=== PATIENT | female | born 1935 | race Caucasian/White ===

== ENCOUNTER 2019-06-10 02:41 | Inpatient (IN) | payer MEDICARE ==
[2019-06-10] MEDS ORDERED: Diltiazem 125 MG/25 ML ONE (02:58)
[2019-06-10 03:03] LABS: #Basophils 0.1 thou/uL (0.0-0.2); #Eosinphils 0.1 thou/uL (0.0-0.7); #Lymphocytes 3.8 thou/uL (1.20-3.40); #Monocytes 1.5 thou/uL (0.11-0.59); #Neutrophils 10.7 thou/uL (1.40-6.50); %Basophils 0.7 % (0.0-1.0); %Eosinophils 0.9 % (0.0-10.0); %Lymphocytes 23.5 % (21.0-51.0); %Monocytes 9.3 % (0.0-10.0); %Neutrophils 65.7 % (42.0-75.0); Hemoglobin 13.3 g/dL (12.0-16.0); Mean Corpuscular HGB CONC 34.3 g/dL (32.0-36.0); Mean Corpuscular Hemoglobin 32.5 pg (27.0-31.0); Mean Corpuscular Volume 94.6 fL (78.0-98.0); Mean Platelet Volume 7.2 fL (7.4-10.4); Platelet Count 262 thou/uL (130-400); RBC Distribution Width 11.4 % (11.5-14.5); White Blood Cell (WBC) Count 16.3 thou/uL (4.8-10.8)
[2019-06-10 03:24] LABS: ALT (SGPT) 14 U/L (8-55); AST (SGOT) 17 U/L (5-34); Alkaline Phosphatase 82 U/L (40-110); Anion Gap 14 mmol/L (10-20); BUN (Urea Nitrogen) 25 mg/dL (9.8-20.1); Bilirubin, Total 0.4 mg/dL (0.2-1.2); CK (CPK) 104 U/L (29-168); Calc. Creatinine Clearance 0 mL/min (70-130); Calcium 9.9 mg/dL (7.8-10.44); Carbon Dioxide 24 mmol/L (23-31); Chloride 100 mmol/L (98-107); Estimated GFR-MDRD 45; Globulin 3.7 g/dL (2.4-3.5); Glucose 138 mg/dL (83-110); Potassium 3.2 mmol/L (3.5-5.1); Protein, Total 7.7 g/dL (6.0-8.3); Sodium 135 mmol/L (136-145)
[2019-06-10 03:48] LABS: CKMB 4.4 ng/mL (0-6.6)
[2019-06-10 05:08] VITALS: BMI 30.7
[2019-06-10] MEDS ORDERED: Ondansetron PF 4 MG/2 ML Vial IVP PRN (06:13)
[2019-06-10] MEDS ORDERED: Acetaminophen 500 MG TAB PO PRN (06:13)
[2019-06-10] MEDS ORDERED: hydrALAZINE 20 MG/ML VIAL SLOW IVP PRN (06:13)
[2019-06-10] MEDS ORDERED: Diltiazem 125 MG in Sodium Chloride 0.9% 100 ML IVPB SCH (06:15)
[2019-06-10 07:28] LABS: Troponin I 0.439 ng/mL (< 0.028)
--- NOTE | 2019-06-10 08:02 | RAD ---
PORTABLE CHEST: HISTORY: Heart palpitations. FINDINGS: Heart size is borderline. Some atherosclerotic change in the aortic and mild chronic-appearing lung change. IMPRESSION: Borderline cardiomegaly with chronic-appearing lung change. POS: JAVIH
[2019-06-10] MEDS: Losartan/Hydrochlorothiazide 100 mg/25 mg Tablet PO SCH ×3 (08:25→17:47)
[2019-06-10] MEDS: Apixaban 5 MG TAB PO SCH ×2 (08:25→20:22)
[2019-06-10] MEDS ORDERED: Metoprolol Tartrate 100 MG TAB PO SCH (09:00)
[2019-06-10] MEDS ORDERED: Famotidine 20 MG TAB PO SCH (09:00)
[2019-06-10] MEDS ORDERED: Magnesium 2 GM/50 ML 2 GM in Premix Bag 1 BAG IVPB SCH (12:00)
[2019-06-10] MEDS ORDERED: Potassium Chloride 20 MEQ TAB PO SCH ×2 (12:00→18:00)
[2019-06-10 12:02] LABS: Critical Call Chem Troponin I RESULT DECREASING; Troponin I 0.338 ng/mL (< 0.028)
--- NOTE | 2019-06-10 12:14 | PDOC.HOSPP ---
- Subjective Encounter Date: 06/10/19 Encounter Time: 09:35 Subjective: no sob or chest pain daughter at bedside was taking eliquis x 2 days, plan was to meet ?Dr. Noel next week - Objective Vital Signs & Weight: Vital Signs (12 hours) Temp Pulse Resp BP Pulse Ox 06/10/19 10:54 99.0 F 68 22 H 119/61 92 L 06/10/19 07:14 98.7 F 79 15 134/58 L 92 L 06/10/19 06:25 95 06/10/19 05:07 97 F L 89 18 173/80 H 95 Weight Weight 173 lb 4.533 oz Result Diagrams: 06/10/19 02:56 06/10/19 02:56 Hospitalist ROS - Medication Medications: Active Medications Generic Name Dose Route Start Last Admin Trade Name Freq PRN Reason Stop Dose Admin Apixaban 5 mg 06/10/19 09:00 06/10/19 08:25 Eliquis PO 5 mg BID EPI Administration Famotidine 20 mg 06/10/19 09:00 06/10/19 08:25 Pepcid PO 20 mg BID EPI Administration HCTZ/Losartan Potassium 1 tab 06/10/19 07:30 06/10/19 08:25 Hyzaar 100/25 PO 1 tab AC EPI Administration - Exam General Appearance: NAD, awake alert Eye: PERRL, anicteric sclera ENT: no oropharyngeal lesions, moist mucosa Neck: supple, no JVD Heart: RRR, no gallops Respiratory: no wheezes, no rales Gastrointestinal: soft, non-tender, normal bowel sounds Extremities: no cyanosis, no edema Neurological: cranial nerve grossly intact, no focal deficits Psychiatric: normal affect, A&O x 3 Hosp A/P (1) Afib Code(s): I48.91 - UNSPECIFIED ATRIAL FIBRILLATION Status: Acute Qualifiers: Atrial fibrillation type: paroxysmal Qualified Code(s): I48.0 - Paroxysmal atrial fibrillation (2) HTN (hypertension) Code(s): I10 - ESSENTIAL (PRIMARY) HYPERTENSION Status: Chronic Qualifiers: Hypertension type: essential hypertension Qualified Code(s): I10 - Essential (primary) hypertension (3) Hypokalemia Code(s): E87.6 - HYPOKALEMIA Status: Acute (4) SRIDHAR (acute kidney injury) Code(s): N17.9 - ACUTE KIDNEY FAILURE, UNSPECIFIED Status: Resolved - Plan heart rate is down to 40's, dc lucian aquino d/w earlier for consultation echo is on eliquis, hyzaar and lopressor (will split her long acting to bid) will dc clonidine at HS hemostable
--- NOTE | 2019-06-10 12:47 | HP ---
PRIMARY CARE PROVIDER: Dr. Diego Harris at the [facility]. CHIEF COMPLAINT: Palpitations and shortness of breath. HISTORY OF PRESENT ILLNESS: This is an 83-year-old female, who presents to [facility] Emergency Department complaining of persistent palpitations, shortness of breath, and chest pain. The patient initially noted the symptoms in the last 4 to 5 days, prompting her to seek medical attention from her primary care provider. The patient underwent EKG and chest radiographs and was told to report to the hospital for further evaluation due to atrial arrhythmia. The patient states she had a similar event in 2005, undergoing a plethora of testing; however, was released without further intervention. The patient states she has been compliant with her chronic medication regimen, taking several blood pressure medications. The patient states she was also recently placed up on Eliquis at the direction of her primary care provider due to the atrial arrhythmia. The patient states her last echocardiogram was in 2005, when she underwent cardiac evaluation. The patient denies any personal history of coronary artery disease, but does admit that she takes a daily low-dose aspirin. The patient states she was scheduled to see a charge machine operator in the next week due to recurrent atrial arrhythmias. The patient does report a history of reflux, taking [id number] antacids for some relief of her symptoms. The patient states this has been intermittent over months' time, but denies any change to her appetite, bowel habits, hematemesis, or melena. In the emergency room, the patient underwent general evaluation with telemetry monitoring showing atrial flutter with rapid ventricular response with initial heart rates in the 160s. The patient received diltiazem IV bolus in addition to an infusion. The patient's overall rate had improved with initiation of diltiazem and was referred to the hospitalist service for further evaluation. PAST MEDICAL HISTORY: 1. Atrial arrhythmias. 2. Chronic anticoagulation. 3. Hypertension. PAST SURGICAL HISTORY: 1. Status post anal fissure repair. 2. Status post cholecystectomy. CURRENT MEDICATIONS: 1. Eliquis 5 mg p.o. b.i.d. 2. Clonidine 0.2 mg p.o. at bedtime. 3. Losartan/hydrochlorothiazide 100/25 mg 1 tablet p.o. daily. 4. Metoprolol tartrate 100 mg p.o. daily. ALLERGIES: ANABOLIC STEROIDS, ERYTHROMYCIN, AND PREDNISONE. FAMILY HISTORY: Positive for hypertension. SOCIAL HISTORY: The patient resides in the [facility] with her . Primary care provider for . Functional of all activities of daily living. No current alcohol, tobacco, or illicit drug use. Accompanied by her daughter in the hospital. REVIEW OF SYSTEMS: CONSTITUTIONAL: Negative for weight loss or gain, ability to conduct usual activities. SKIN: Negative for rash, itching. EYES: Negative for double vision, pain. ENT/MOUTH: Negative for nose bleeding, neck stiffness, pain, tenderness. CARDIOVASCULAR: Negative for palpitations, dyspnea on exertion, orthopnea. RESPIRATORY: Negative for shortness of breath, wheezing, cough, hemoptysis, fever or night sweats. GASTROINTESTINAL: Negative for poor appetite, abdominal pain, heartburn, nausea, vomiting, constipation, or diarrhea. GENITOURINARY: Negative for urgency, frequency, dysuria, nocturia. MUSCULOSKELETAL: Negative for pain, swelling. NEUROLOGIC/PSYCHIATRIC: Negative for anxiety, depression. ALLERGY/IMMUNOLOGIC: Negative for skin rash, bleeding tendency. Otherwise, negative except as stated per HPI. PHYSICAL EXAMINATION: VITAL SIGNS: On admission, blood pressure 173/101, pulse 168, respiratory rate 24, temperature 98.2 degrees Fahrenheit, and O2 saturation 97% on room air. GENERAL APPEARANCE: This is an 83-year-old female, alert and oriented x3, pleasant, smiling, in no acute distress. HEENT: Pupils are equal, round, reactive to light and accommodation. Extraocular muscles are intact. No scleral icterus. No conjunctival injection. Nares are patent. OP is clear. Teeth in good repair. NECK: Supple. No cervical adenopathy. No thyromegaly. No carotid bruits. No JVD appreciated. Cervical spine with full active and passive range of motion. No meningeal signs noted. CHEST: Lungs are clear to auscultation bilaterally. CARDIOVASCULAR: S1 and S2 with irregular rate and rhythm. No murmur, rub, or gallop appreciated. ABDOMEN: Obese, soft, nontender, and nondistended. Bowel sounds are positive in all 4 quadrants. There is no hepatosplenomegaly. No abdominal bruits. No rebound or guarding appreciated. EXTREMITIES: Warm and dry with fair turgor. No clubbing, cyanosis, or asymmetric edema appreciated. Pulses palpable distally at the dorsalis pedis, posterior tibial, and popliteal arteries bilaterally. Capillary refill less than 2 seconds. NEUROLOGIC: Cranial nerves 2 through 12 are grossly intact. No focal or lateralizing signs appreciated. PERTINENT LABORATORY AND X-RAY FINDINGS: Sodium 135, potassium 3.2, chloride 100, CO2 of 24, BUN 25, creatinine 1.15, estimated GFR 45, glucose 138, and calcium 9.9. LFTs within normal limits. Troponin I 0.504. CBC showed a white blood cell count of 16.3, hemoglobin 13, hematocrit 39, and platelet count 262 with normal differential. Portable chest x-ray dated 06/10/2019 by my interpretation shows no acute cardiopulmonary process. EKG dated 06/10/2019 by my interpretation shows atrial flutter with variable AV block. Heart rates in the 110s. Attenuated R-wave is noted in the precordial leads. Left axis deviation. ASSESSMENT AND PLAN: 1. Atrial flutter with rapid ventricular response. The patient will be admitted to the telemetry unit. We will continue rate control strategy with diltiazem infusion at 10 mg/hour. Continue anticoagulation with Eliquis 5 mg b.i.d. We will consult Cardiology Service for evaluation and strategies regarding return to sinus mechanism. 2. Non-ST elevation myocardial infarction, type 2. Suspect demand ischemia in the context of #1. Continue aspirin 81 mg daily. Check fasting lipid profile. Consult Cardiology Service. 3. Hyponatremia. Suspect iatrogenic secondarily to hydrochlorothiazide therapy. Asymptomatic currently. Continue to monitor trend. 4. Hypokalemia. Repeat potassium level and monitor potassium trend. 5. Acute kidney injury. Avoid nephrotoxic agents and limit contrast exposure. Serial creatinine monitoring. 6. Chronic anticoagulation. Continue Eliquis 5 mg b.i.d. 7. Hypertension. Labile. Hydralazine as needed for systolic greater than or equal to 170. Resume home blood pressure regimen and monitor clinical response. 8. Prophylaxis. SCDs while in bed. Pepcid 20 mg p.o. b.i.d. CODE STATUS: Full. Surrogate medical decision maker is the patient's daughter. Job ID: [id number]
[2019-06-10] MEDS ORDERED: Amiodarone 200 MG TAB PO SCH (15:00)
--- NOTE | 2019-06-10 18:16 | CON ---
DATE OF CONSULTATION: 06/10/2019 REASON FOR CONSULTATION: Atrial fibrillation with a rapid rate and increased troponin level. HISTORY OF PRESENT ILLNESS: Ms. Sanz is a very pleasant 83-year-old woman. She said in the last week she has been having a sensation of rapid heart rates. She saw Dr. Harris earlier this week on Friday and he started her on apixaban. The patient has had episodes of rapid heart rates at night and also the uncomfortableness feeling in her chest and some tightness in her chest when the rate is fast. She came here. She had a rapid heart rate. She was given diltiazem. She was found to have slight increased troponin level. She has been hospitalized for diagnosis and treatment. The patient states she has had some episodes of rapid heart rates in the past over the years off and on, but it has never been diagnosed before. Otherwise, a couple of weeks ago, she was doing fine and active. No complaints. MEDICATIONS: 1. Clonidine 0.2 mg at bedtime. 2. Metoprolol 100 mg long-acting once a day (metoprolol tartrate is listed here, but I am not certain, I think the other says succinate). 3. Losartan/hydrochlorothiazide. 4. Apixaban 5 mg twice a day. ALLERGIES: ANDROGENIC ANABOLIC STEROID, ERYTHROMYCIN, AND PREDNISONE. REVIEW OF SYSTEMS: CONSTITUTIONAL: No significant weight gain or loss. VISION: No changes. HEARING: No changes. PULMONARY: No cough or wheezing. GASTROINTESTINAL: No nausea, vomiting, or diarrhea. SKIN: No rashes. NEUROLOGIC: No unilateral weakness or numbness. PSYCHIATRIC: No unusual depression or anxiety. FAMILY HISTORY: Negative for heart disease at young age. PHYSICAL EXAMINATION: GENERAL: This is a pleasant elderly woman in no distress. VITAL SIGNS: Blood pressure 119/61, pulse is 50 to 60, it is irregular. HEENT: Eyes: Sclerae are nonicteric. Mouth: Mucous membranes are moist. NECK: Supple. No lymphadenopathy. LUNGS: Clear. No wheezing, rales, or rhonchi. CARDIAC: Irregularly irregular. No murmur, rub, or gallop. ABDOMEN: Soft and nontender. EXTREMITIES: Warm and dry. No clubbing or cyanosis. There is no significant edema. Good peripheral pulses. PERTINENT LABORATORY DATA: Hemoglobin is 13.3. Troponin level of 0.504, down to 0.439. Potassium 3.2. EKG did reveal atrial fibrillation with a rapid ventricular response. Now, the rates are controlled. The heart rates are 60 with some pauses. There is an EKG with heart rate of 110 here last night. ASSESSMENT: 1. Atrial fibrillation with rapid ventricular response. 2. Type 2 myocardial infarction and demand ischemia with probable underlying coronary artery disease. 3. History of hypertension. In all likelihood, the patient has underlying coronary artery disease. She did have a non-ST elevation myocardial infarction type 2 associated with the tachycardia. She is currently on apixaban. PLAN: 1. We will stop diltiazem. The heart rates are now on the low side. 2. Continue apixaban. 3. Echocardiogram pending. 4. If she maintains the atrial fibrillation tomorrow, I would recommend transesophageal echo and cardioversion. The risks including stroke and need for pacemaker insertion were discussed in case the heart rate comes out too slow. Job ID: [id number]
[2019-06-10] MEDS: Amiodarone 200 MG TAB PO SCH (20:22)
[2019-06-10] MEDS ORDERED: cloNIDine 0.2 MG TAB PO SCH (21:00)
[2019-06-11] MEDS: Amiodarone 200 MG TAB PO SCH ×4 (01:13→20:10)
[2019-06-11] MEDS ORDERED: Nitroglycerin 0.4 MG TAB (25 Tab Bottle) ONE (04:22)
[2019-06-11] MEDS: Nitroglycerin 0.4 MG TAB (25 Tab Bottle) PO PRN ×3 (04:23→08:01)
[2019-06-11] MEDS ORDERED: Lorazepam 0.5 MG TAB PO SCH (04:45)
[2019-06-11 06:02] LABS: Anion Gap 15 mmol/L (10-20); BUN (Urea Nitrogen) 22 mg/dL (9.8-20.1); Calc. Creatinine Clearance 54 mL/min (70-130); Calcium 9.7 mg/dL (7.8-10.44); Carbon Dioxide 23 mmol/L (23-31); Chloride 100 mmol/L (98-107); Estimated GFR-MDRD 52; Glucose 161 mg/dL (83-110); Magnesium 1.9 mg/dL (1.6-2.6); Potassium 3.3 mmol/L (3.5-5.1); Sodium 135 mmol/L (136-145)
[2019-06-11 06:06] LABS: Critical Call Chem Troponin I RESULT DECREASING
[2019-06-11 06:10] LABS: Hemoglobin 13.4 g/dL (12.0-16.0); Mean Corpuscular HGB CONC 34.1 g/dL (32.0-36.0); Mean Corpuscular Hemoglobin 32.2 pg (27.0-31.0); Mean Corpuscular Volume 94.5 fL (78.0-98.0); Mean Platelet Volume 7.5 fL (7.4-10.4); Platelet Count 279 thou/uL (130-400); RBC Distribution Width 11.5 % (11.5-14.5); Red Blood Cell (RBC) Count 4.15 mill/uL (4.20-5.40); White Blood Cell (WBC) Count 14.8 thou/uL (4.8-10.8)
[2019-06-11 06:11] LABS: Band 6 % (5-11); Eosinophils 1 % (0-10); Lymphocytes 29 % (21-51); MDiff Complete? YES; Monocytes 7 % (0-10); Neutrophil 57 % (42-75)
[2019-06-11] MEDS: Losartan/Hydrochlorothiazide 100 mg/25 mg Tablet PO SCH ×3 (08:01→17:55)
[2019-06-11] MEDS: Famotidine 20 MG TAB PO SCH (08:02)
[2019-06-11] MEDS ORDERED: Diltiazem 125 MG in Sodium Chloride 0.9% 100 ML IVPB SCH ×2 (08:30→09:00)
[2019-06-11] MEDS ORDERED: Metoprolol Tartrate 5 MG/5 ML VIAL IVP PRN (08:58)
[2019-06-11] MEDS ORDERED: Lidocaine 1% PF 5 ML VIAL ONE (10:09)
[2019-06-11] MEDS ORDERED: PROPOFOL 200 MG/20 ML VIAL ONE ×2 (10:09→10:10)
[2019-06-11] MEDS ORDERED: Lidocaine 1% (PF) 30 ML VIAL ONE (10:45)
[2019-06-11] MEDS ORDERED: Propofol 500 MG/50 ML VIAL ONE (11:12)
--- NOTE | 2019-06-11 11:50 | PDOC.HOSPP ---
- Subjective Encounter Date: 06/11/19 Encounter Time: 09:20 Subjective: had palp at night, none now, feels better no sob daughter at bedside - Objective Vital Signs & Weight: Vital Signs (12 hours) Temp Pulse Resp BP Pulse Ox 06/11/19 07:42 97.8 F 160 H 16 121/80 98 06/11/19 03:56 98.2 F 143 H 19 139/91 H 94 L Weight Weight 173 lb 4.533 oz I&O: 06/10/19 06/11/19 06/12/19 06:59 06:59 06:59 Intake Total 1380 Balance 1380 Result Diagrams: 06/11/19 04:59 06/11/19 04:59 Hospitalist ROS - Medication Medications: Active Medications Generic Name Dose Route Start Last Admin Trade Name Freq PRN Reason Stop Dose Admin Famotidine 20 mg 06/11/19 09:00 06/11/19 08:02 Pepcid PO 20 mg DAILY EPI Administration HCTZ/Losartan Potassium 1 tab 06/10/19 07:30 06/11/19 08:01 Hyzaar 100/25 PO 1 tab AC EPI Administration Diltiazem HCl 125 mg/ Sodium 125 mls @ 10 mls/hr 06/11/19 08:30 06/11/19 09: 10 Chloride IVPB 125 mls INF EPI Administration Protocol 10 MG/HR Nitroglycerin 0.4 mg 06/11/19 04:20 06/11/19 08:01 Nitrostat PO 1 tab Q5MIN PRN Administration Chest Pain Sodium Chloride 10 ml 06/11/19 09:00 06/11/19 11:11 Flush - Normal Saline IVF 10 ml Q12HR EPI Administration - Exam General Appearance: NAD, awake alert Eye: PERRL, anicteric sclera ENT: no oropharyngeal lesions, moist mucosa Neck: supple, no JVD Heart: no murmur, irregular Respiratory: no wheezes, no ronchi Gastrointestinal: soft, non-tender, normal bowel sounds Extremities: no cyanosis, no edema Neurological: cranial nerve grossly intact, no focal deficits Psychiatric: normal affect, A&O x 3 Hosp A/P (1) Afib Code(s): I48.91 - UNSPECIFIED ATRIAL FIBRILLATION Status: Acute Qualifiers: Atrial fibrillation type: paroxysmal Qualified Code(s): I48.0 - Paroxysmal atrial fibrillation (2) HTN (hypertension) Code(s): I10 - ESSENTIAL (PRIMARY) HYPERTENSION Status: Chronic Qualifiers: Hypertension type: essential hypertension Qualified Code(s): I10 - Essential (primary) hypertension (3) Hypokalemia Code(s): E87.6 - HYPOKALEMIA Status: Resolved (4) SRIDHAR (acute kidney injury) Code(s): N17.9 - ACUTE KIDNEY FAILURE, UNSPECIFIED Status: Resolved - Plan overnight had a.flutter/fib, is on amiodarone tid oral likely will either have cardioversion or amee with ablation d/w . will see her. echo shows normal ef, has mod MR and TR is on eliquis, hyzaar. Off lopressor hemostable
[2019-06-11] MEDS ORDERED: Isoproterenol 0.2 MG/1 ML AMP ONE (11:55)
[2019-06-11] MEDS ORDERED: Heparin 10,000 UNITS/1 ML VIAL ONE (11:55)
[2019-06-11] MEDS ORDERED: DOPamine 400 MG/D5W 250 ML 250 ML ONE (12:05)
[2019-06-11] MEDS ORDERED: Acetaminophen/Codeine 30-300mg Tablet PO PRN ×2 (13:30)
--- NOTE | 2019-06-11 15:27 | OP ---
DATE OF PROCEDURE: 06/11/2019 PROCEDURE PERFORMED: Electrophysiology study and radiofrequency ablation. REASON FOR PROCEDURE: Ms. Sanz presenting with sustained typical appearing atrial flutter. SUMI prior to the procedure demonstrates no intracardiac clot, but [id number] biatrial enlargement. DESCRIPTION OF PROCEDURE: The patient received propofol by anesthesia specialist. After adequate level of sedation achieved, the right femoral vein was prepped and draped and anesthetized using subcutaneous lidocaine. Under ultrasound guidance, the right femoral vein accessed x2 with a multipurpose needle and two 8-[place] short sheath was introduced, through which a decapolar catheter was advanced to the right atrium, right ventricle, His bundle, and CS position. Pacing mapping and recording was performed at each location, including pacing of the left atrium through the CS. Also through the right femoral venous access, a ThermoCool SFST catheter was advanced to the right atrium, which was used to obtain 3D map of the right atrium as well as ablation of the cavotricuspid isthmus was performed later. At baseline, following findings were noted. Baseline rhythm was atrial flutter with a QRS duration of 99. The atrial flutter cycle length was 213 milliseconds cycle length. With catheter manipulation, the atrial flutter terminated. Subsequent rhythm was sinus rhythm. Again, the QRS was 99 milliseconds, QT 234 milliseconds, AH 131, HV 50 milliseconds. Sinus node recovery time was assessed. It is 1507 with corrected sinus node recovery time about 507 seen. AV Wenckebach cycle length was 380 milliseconds. Retrograde Wenckebach cycle was 450 milliseconds. Concentric retrograde VA conduction was seen. The AV penny ERP was 600/280 milliseconds. No dual AV node physiology was present. Burst atrial pacing was performed and we were able to reinduce any atrial flutter with a different cycle lengths and different morphologies. The further flutters appeared to be a left atrial, another flutter, possibly right atrial morphology. Cavotricuspid isthmus ablation was performed in sinus rhythm with coronary sinus pacing. Able to prolong the cavotricuspid isthmus to 160 milliseconds with the ablation, transisthmus block was demonstrated by longest transisthmus time adjacent to the ablation line. A total of 2 ablations delivered at 3 minutes and 55 seconds at 40 gunter. Following that, burst atrial pacing was again attempted and we were able to reduce different morphology of left atrial flutters. One of them was cycle length 210 milliseconds and this flutter was easily paced terminable. Post pacing interval though was suggesting again left atrial origin. At the end of the case, dopamine was administered and any reconnection was re-ablated. The cardiac silhouette did not change significantly during the ablation. Catheter was removed. The patient tolerated the procedure well. Basket closure was done. CONCLUSION: 1. Baseline atrial flutter, terminating with catheter manipulation. 2. Cavotricuspid isthmus ablation, prolonging transisthmus time. 3. Multi-circuit left atrial flutters are seen, most prominent of them at 210 am milliseconds, which was easily pace terminated. 4. Abnormal sinus node recovery time, suggestive of sinus node abnormality, possibly due to amiodarone and diltiazem use recently. 5. No evidence of accessory pathway or dual atrioventricular penny physiology present. PLAN: 1. Continue oral anticoagulation. Monitor for recurrent arrhythmias, likely reasonable to continue amiodarone at least intermediate term to suppress additional left atrial arrhythmias. 2. After clinical stabilization, left atrial ablation is a potential future option. Job ID: [id number]
--- NOTE | 2019-06-11 16:02 | PRG ---
DATE OF SERVICE: 06/11/2019 SUBJECTIVE: Ms. Sanz developed rapid atrial flutter early this morning. She did not respond well to medications as is frequently the case. She ultimately went for ablation. She is feeling well now. No chest pain or pressure now. The patient did have chest pain last night with tachycardia. OBJECTIVE: VITAL SIGNS: Her blood pressure was 170/90, pulse 77 and regular. LUNGS: Clear. CARDIAC: Normal S1, normal S2. ABDOMEN: Soft, nontender. EXTREMITIES: No edema. ASSESSMENT: The patient appears to have had three types of arrhythmias. She has atrial fibrillation which she has a risk of recurrence. Next, what looks like right-sided atrial flutter. She had an ablation of the isthmus on the right side. Next also left atrial tachycardia and a left atrial flutter. PLAN: 1. To be treated with amiodarone, metoprolol, apixaban. 2. She will be able to go home Friday if doing well, but would like to keep her in the hospital to load her with medicines first. When she went into rapid tachycardia, she did not tolerate it well and even had a small non STEMI related to tachycardia. She probably has underlying coronary disease. Job ID: [id number]
[2019-06-11] MEDS: Apixaban 5 MG TAB PO SCH (20:10)
--- NOTE | 2019-06-11 20:53 | ECHO ---
DATE: 06/11/19 REFERRING PHYSICIAN: Dr. Roldan REASON FOR PROCEDURE: The patient is an 83-year-old female with history of hypertension who I presenting with chest pain an d borderline troponin rise with rapid rates, newly found atrial flutter is noted on the present EKG. Rapid rates are controlled with Diltiazem. She has been started on Eliquis a couple of days ago, but she is here for a SUMI to rule out intracardiac clot prior to a planned ablation procedure. PROCEDURE: The patient received propofol by Anesthesia specialist. After adequate level of sedation achieved, a standard transesophageal echocardiogram probe was passed into the esophagus without diff iculty. Patient tolerated the procedure well, no complications noted. RESULTS: Left atrium is moderate to severely enlarged about 5 cm in horizontal diameter. The left atrial appe ndage was well visualized contains no formed clots. The left atrial appendage velocities are reduced. Four out of four pulmonary veins were seen. The mitral valve has mild to moderate regurgitation jus t central. The interatrial septum and interventricular septum is free of defect. Left ventricular sys tolic function appears to be preserved. Mild LVH is noted. Right sided chambers with mild tricuspid r egurgitation. The aortic valve is nonregurgitant or stenotic. The pulmonary valve is borderline visua lized and appears to be normal. Pericardial space with small to moderate mostly focal effusion by the right ventricle which does not appear to be hemodynamically significant. No chamber clots are noted. The visualized portion of ascending and descending aorta without aneurysm, dissection or significant atheroma. CONCLUSION: 1. No intracardiac clots. 2. Moderate to severe biatrial enlargement. 3. Preserved left ventricular systolic function. 4. Mild to moderate mitral and tricuspid regurgitation. 5. Mild to moderate mostly focal right ventricular/left atrial pericardial effusion without hemodyna mically significant appearance. PLAN: Proceed with the ablation procedure.
[2019-06-12] MEDS: traMADol HCl 50 MG TAB PO PRN (01:27)
[2019-06-12 05:52] LABS: Hemoglobin 13.1 g/dL (12.0-16.0); Platelet Count 259 thou/uL (130-400)
[2019-06-12 06:20] LABS: Anion Gap 13 mmol/L (10-20); BUN (Urea Nitrogen) 23 mg/dL (9.8-20.1); Calc. Creatinine Clearance 51 mL/min (70-130); Calcium 9.6 mg/dL (7.8-10.44); Carbon Dioxide 27 mmol/L (23-31); Chloride 99 mmol/L (98-107); Estimated GFR-MDRD 49; Glucose 147 mg/dL (83-110); Sodium 136 mmol/L (136-145)
[2019-06-12 06:21] LABS: Potassium 2.9 mmol/L (3.5-5.1)
[2019-06-12] MEDS: Amiodarone 200 MG TAB PO SCH ×3 (07:10→20:37)
[2019-06-12] MEDS: Apixaban 5 MG TAB PO SCH ×2 (07:10→20:37)
[2019-06-12] MEDS: Famotidine 20 MG TAB PO SCH (07:10)
[2019-06-12] MEDS: Losartan/Hydrochlorothiazide 100 mg/25 mg Tablet PO SCH ×3 (08:08→15:33)
[2019-06-12] MEDS: Potassium Chloride 20 MEQ in Premix Bag 1 BAG IVPB SCH ×2 (08:08→12:48)
--- NOTE | 2019-06-12 09:56 | PDOC.HOSPP ---
- Subjective Encounter Date: 06/12/19 Subjective: Pt seen c/o burning IV line site due to potassium , also c/o chest pain says has soreness due to movement and breathing - Objective Vital Signs & Weight: Vital Signs (12 hours) Temp Pulse Resp BP Pulse Ox 06/12/19 07:51 95 06/12/19 07:07 134 H 16 158/88 H 94 L 06/12/19 03:53 98.0 F 94 16 145/67 H 92 L 06/12/19 03:22 96 Weight Weight 173 lb 4.533 oz I&O: 06/11/19 06/12/19 06/13/19 06:59 06:59 06:59 Intake Total 1380 960 Balance 1380 960 Result Diagrams: 06/12/19 05:18 06/12/19 05:18 Hospitalist ROS - Review of Systems Constitutional: denies: fever Eyes: denies: pain ENT: denies: ear pain Respiratory: denies: cough Cardiovascular: reports: chest pain Gastrointestinal: denies: nausea Musculoskeletal: denies: neck pain Neurological: denies: weakness - Medication Medications: Active Medications Generic Name Dose Route Start Last Admin Trade Name Freq PRN Reason Stop Dose Admin Amiodarone HCl 400 mg 06/11/19 15:00 06/12/19 07:10 Cordarone PO 400 mg TID EPI Administration Apixaban 5 mg 06/11/19 21:00 06/12/19 07:10 Eliquis PO 5 mg BID EPI Administration Famotidine 20 mg 06/11/19 09:00 06/12/19 07:10 Pepcid PO 20 mg DAILY EPI Administration HCTZ/Losartan Potassium 1 tab 06/10/19 07:30 06/12/19 08:08 Hyzaar 100/25 PO 1 tab AC EPI Administration Potassium Chloride 20 meq/ 100 mls @ 50 mls/hr 06/12/19 08:00 06/12/19 08:08 Device IVPB 06/12/19 11:59 100 mls Q2H EPI Administration Metoprolol Succinate 100 mg 06/12/19 09:00 06/12/19 07:09 Toprol Xl PO 100 mg DAILY EPI Administration Nitroglycerin 0.4 mg 06/11/19 04:20 06/11/19 08:01 Nitrostat PO 1 tab Q5MIN PRN Administration Chest Pain Sodium Chloride 10 ml 06/11/19 09:00 06/12/19 08:13 Flush - Normal Saline IVF 10 ml Q12HR EPI Administration Tramadol HCl 50 mg 06/10/19 16:15 06/12/19 01:27 Ultram PO 50 mg Q6H PRN Administration Pain - Exam General Appearance: awake alert Eye: PERRL ENT: normocephalic atraumatic Neck: supple Heart: irregular Gastrointestinal: soft Skin: normal turgor Neurological: cranial nerve grossly intact Musculoskeletal: normal tone Psychiatric: normal affect Hosp A/P - Plan Afib/flutter with RVR s/p ablation Continue amiodarone eliquis Positive troponin most likley demand supply mismatch deu to Afib RVR HTN (hypertension) Contoinue to monitor Hypokalemia Contoinue to replacement Leucocytosis Most likely reactive dvt/gi prophylaxis Plan Discussed with pt , daughter and nursing staff
[2019-06-12] MEDS: Diltiazem 125 MG in Sodium Chloride 0.9% 100 ML IVPB SCH (10:31)
--- NOTE | 2019-06-12 20:11 | PDOC.CPN ---
- Subjective Date: 06/12/19 Time: 20:09 Interval history: Doing well No new issues. - Review of Systems General: denies: fever/chills, weight/appetite/sleep changes, night sweats, fatigue Respiratory: denies: cough, congestion, shortness of breath, exercise intolerance Cardiovascular: denies: chest pain, palpitation, edema, paroxysmal nocturnal dyspnea, orthopnea Gastrointestinal: denies: nausea, vomiting, diarrhea, constipation, abd pain, GI bleeding Musculoskeletal: denies: pain, tenderness, stiffness, swelling, arthritis/ arthralgias Neurological: denies: numbness, syncope, seizure, weakness - Objective Allergies/Adverse Reactions: Allergies Allergy/AdvReac Type Severity Reaction Status Date / Time Androgenic Anabolic Steroid Allergy Verified 06/10/19 05:10 erythromycin base Allergy Verified 06/10/19 05:10 prednisone Allergy Verified 06/10/19 05:10 Visit Medications: Current Medications Acetaminophen (Tylenol) 1,000 mg PO Q6H PRN PRN Reason: Mild Pain (1-3) Acetaminophen/Codeine Phosphate (Tylenol #3) 1 tab PO Q4H PRN PRN Reason: Mild Pain (1-3) Acetaminophen/Codeine Phosphate (Tylenol #3) 2 tab PO Q4H PRN PRN Reason: Moderate Pain (4-6) Amiodarone HCl (Cordarone) 400 mg PO TID [facility] Last Admin: 06/12/19 15:20 Dose: 400 mg Apixaban (Eliquis) 5 mg PO BID [facility] Last Admin: 06/12/19 07:10 Dose: 5 mg Famotidine (Pepcid) 20 mg PO DAILY [facility] Last Admin: 06/12/19 07:10 Dose: 20 mg HCTZ/Losartan Potassium (Hyzaar 100/25) 1 tab PO DAILY [facility] Hydralazine HCl (Apresoline) 10 mg SLOW IVP Q4H PRN PRN Reason: SBP > 180 and HR < 70 Diltiazem HCl 125 mg/ Sodium (Chloride) 125 mls @ 5 mls/hr IVPB INF [facility] Last Admin: 06/12/19 10:31 Dose: 125 mls Metoprolol Succinate (Toprol Xl) 100 mg PO DAILY [facility] Last Admin: 06/12/19 07:09 Dose: 100 mg Miscellaneous Medication (Pharmacy To Dose) 1 each PO PRN PRN PRN Reason: RENALLY ADJUST Nitroglycerin (Nitrostat) 0.4 mg PO Q5MIN PRN PRN Reason: Chest Pain Last Admin: 06/11/19 08:01 Dose: 1 tab Ondansetron HCl (Zofran Odt) 4 mg PO Q6H PRN PRN Reason: Nausea/Vomiting Ondansetron HCl (Zofran) 4 mg IVP Q6H PRN PRN Reason: Nausea/Vomiting Sodium Chloride (Flush - Normal Saline) 10 ml IVF Q12HR EPI Last Admin: 06/12/19 08:13 Dose: 10 ml Sodium Chloride (Flush - Normal Saline) 10 ml IVF PRN PRN PRN Reason: Saline Flush Tramadol HCl (Ultram) 50 mg PO Q6H PRN PRN Reason: Pain Last Admin: 06/12/19 01:27 Dose: 50 mg Vital Signs & Weight: Vital Signs Pulse Resp BP Pulse Ox 06/12/19 15:18 80 16 126/66 94 L 06/12/19 12:00 140 H 16 116/73 93 L Weight 173 lb 4.533 oz - Physical Exam General: alert & oriented x3, no apparent distress HEENT: mucus membranes moist, normocephaly Neck: supple neck, midline trachea Cardiac: regular rate and rhythm, no murmur, regular rate Lungs: clear to auscultation, no wheeze, rales, rhonchi Neuro: grossly intact, coordination normal Abdomen: active bowel sounds, soft, non-tender Skin: clear Musculoskeletal: normal range of motion, no pain - Labs Result Diagrams: 06/12/19 05:18 06/12/19 05:18 Troponin/CKMB CK-MB (CK-2) 2.0 ng/mL (0-6.6) 06/11/19 04:59 Troponin I 0.309 ng/mL (< 0.028) H* 06/11/19 04:59 - Assessment/Plan Assessment/Plan: 1. Paroxysmal afib 2. Typical atrial flutter. 3. Atypical atrial flutter PLAN: - Continue amiodarone, BB and Eliquis for stroke prophylaxis. - S/P Cavo-tricuspid isthmus ablation. may need further ablations in the future. - She had a recurrence of her SVT/Aflutter this afternoon and had to start a diltiazem drip, she converted to sinus since 1330. - Continue to monitor.
[2019-06-13 05:38] LABS: #Basophils 0.1 thou/uL (0.0-0.2); #Eosinphils 0.3 thou/uL (0.0-0.7); #Lymphocytes 3.7 thou/uL (1.20-3.40); #Monocytes 1.7 thou/uL (0.11-0.59); #Neutrophils 10.3 thou/uL (1.40-6.50); %Basophils 0.4 % (0.0-1.0); %Eosinophils 1.9 % (0.0-10.0); %Lymphocytes 22.8 % (21.0-51.0); %Monocytes 10.3 % (0.0-10.0); %Neutrophils 64.5 % (42.0-75.0); Hemoglobin 12.1 g/dL (12.0-16.0); Mean Corpuscular HGB CONC 33.9 g/dL (32.0-36.0); Mean Corpuscular Hemoglobin 31.8 pg (27.0-31.0); Mean Corpuscular Volume 93.7 fL (78.0-98.0); Mean Platelet Volume 7.8 fL (7.4-10.4); Platelet Count 231 thou/uL (130-400); RBC Distribution Width 11.5 % (11.5-14.5); Red Blood Cell (RBC) Count 3.81 mill/uL (4.20-5.40)
[2019-06-13 05:55] LABS: Anion Gap 12 mmol/L (10-20); BUN (Urea Nitrogen) 25 mg/dL (9.8-20.1); Calc. Creatinine Clearance 57 mL/min (70-130); Calcium 9.4 mg/dL (7.8-10.44); Carbon Dioxide 24 mmol/L (23-31); Chloride 97 mmol/L (98-107); Estimated GFR-MDRD 56; Glucose 108 mg/dL (83-110); Magnesium 1.9 mg/dL (1.6-2.6); Potassium 3.1 mmol/L (3.5-5.1); Sodium 130 mmol/L (136-145)
[2019-06-13] MEDS: Potassium Chloride 20 MEQ TAB PO SCH ×2 (09:13→13:51)
[2019-06-13] MEDS: Apixaban 5 MG TAB PO SCH ×2 (09:14→20:41)
[2019-06-13] MEDS: Losartan/Hydrochlorothiazide 100 mg/25 mg Tablet PO SCH (09:14)
[2019-06-13] MEDS: Amiodarone 200 MG TAB PO SCH ×3 (09:14→20:41)
[2019-06-13] MEDS: Famotidine 20 MG TAB PO SCH (09:15)
[2019-06-13] MEDS: Diltiazem 125 MG in Sodium Chloride 0.9% 100 ML IVPB SCH (12:33)
--- NOTE | 2019-06-13 14:43 | PDOC.HOSPP ---
- Subjective Encounter Date: 06/13/19 Subjective: Pt seen feeling better , Not in distress chest pain and palpitation better today - Objective Vital Signs & Weight: Vital Signs (12 hours) Temp Pulse Resp BP BP Pulse Ox 06/13/19 11:35 98.6 F 63 16 130/63 93 L 06/13/19 08:05 99.0 F 67 16 151/69 H 96 06/13/19 07:40 96 Weight Weight 173 lb 4.533 oz I&O: 06/12/19 06/13/19 06/14/19 06:59 06:59 06:59 Intake Total 960 1235 Balance 960 1235 Result Diagrams: 06/13/19 04:45 06/13/19 09:22 Hospitalist ROS - Review of Systems Constitutional: denies: fever Eyes: denies: pain ENT: denies: ear pain Respiratory: denies: cough Cardiovascular: denies: chest pain Gastrointestinal: denies: nausea Genitourinary: denies: dysuria Musculoskeletal: denies: neck pain Skin: denies: rash Neurological: denies: weakness - Medication Medications: Active Medications Generic Name Dose Route Start Last Admin Trade Name Freq PRN Reason Stop Dose Admin Amiodarone HCl 400 mg 06/11/19 15:00 06/13/19 09:14 Cordarone PO 400 mg TID EPI Administration Apixaban 5 mg 06/11/19 21:00 06/13/19 09:14 Eliquis PO 5 mg BID EPI Administration Famotidine 20 mg 06/11/19 09:00 06/13/19 09:15 Pepcid PO 20 mg DAILY [facility] Administration HCTZ/Losartan Potassium 1 tab 06/13/19 09:00 06/13/19 09:14 Hyzaar 100/25 PO 1 tab DAILY EPI Administration Diltiazem HCl 125 mg/ Sodium 125 mls @ 5 mls/hr 06/12/19 09:45 06/13/19 12:33 Chloride IVPB 125 mls INF EPI Administration 5 MG/HR Metoprolol Succinate 100 mg 06/12/19 09:00 06/13/19 09:14 Toprol Xl PO 100 mg DAILY EPI Administration Nitroglycerin 0.4 mg 06/11/19 04:20 06/11/19 08:01 Nitrostat PO 1 tab Q5MIN PRN Administration Chest Pain Sodium Chloride 10 ml 06/11/19 09:00 06/13/19 09:55 Flush - Normal Saline IVF Not Given Q12HR EPI Tramadol HCl 50 mg 06/10/19 16:15 06/12/19 01:27 Ultram PO 50 mg Q6H PRN Administration Pain - Exam General Appearance: awake alert Eye: anicteric sclera ENT: normocephalic atraumatic Neck: supple Heart: no gallops Respiratory: no wheezes Gastrointestinal: soft Extremities: no cyanosis Skin: normal turgor Neurological: cranial nerve grossly intact Musculoskeletal: normal tone Psychiatric: normal affect Hosp A/P - Plan Afib/flutter with RVR s/p ablation Continue amiodarone eliquis and metoprolol , s/p cardizem Singh aquino NSR Positive troponin most likley demand supply mismatch deu to Afib RVR HTN (hypertension) Contoinue to monitor Hypokalemia Contoinue to replacement K 3.1 today , Check BMP in am Leucocytosis Most likely reactive dvt/gi prophylaxis Plan Discussed with pt , daughter and nursing staff
--- NOTE | 2019-06-13 17:19 | EKG ---
Test Reason : Blood Pressure : / mmHG Vent. Rate : 131 BPM Atrial Rate : 117 BPM P-R Int : 000 ms QRS Dur : 088 ms QT Int : 318 ms P-R-T Axes : 000 -51 094 degrees QTc Int : 469 ms Atrial fibrillation with rapid ventricular response Left anterior fascicular block Septal infarct , age undetermined Abnormal ECG No previous ECGs available Confirmed by EARLENE LARA (2) on 06/13/2019 5:18:53 PM Referred By: Confirmed By:EARLENE LARA
--- NOTE | 2019-06-13 17:25 | EKG ---
Test Reason : POST ABLATION Blood Pressure : / mmHG Vent. Rate : 066 BPM Atrial Rate : 066 BPM P-R Int : 178 ms QRS Dur : 090 ms QT Int : 436 ms P-R-T Axes : 073 -39 053 degrees QTc Int : 457 ms Normal sinus rhythm Left axis deviation Abnormal ECG When compared with ECG of 11-JUN-2019 04:30, (Unconfirmed) Sinus rhythm has replaced Atrial fibrillation Vent. rate has decreased BY 65 BPM Criteria for Septal infarct are no longer Present ST no longer depressed in Lateral leads T wave amplitude has decreased in Anterior leads Confirmed by EARLENE LARA (2) on 06/13/2019 5:24:56 PM Referred By: DEVYN Confirmed By:EARLENE LARA
--- NOTE | 2019-06-13 19:43 | PDOC.CPN ---
- Subjective Date: 06/13/19 Time: 19:42 Interval history: She is doing well. No new episodes of afib or SVT. - Review of Systems General: denies: fever/chills, weight/appetite/sleep changes, night sweats, fatigue Respiratory: denies: cough, congestion, shortness of breath, exercise intolerance Cardiovascular: denies: chest pain, palpitation, edema, paroxysmal nocturnal dyspnea, orthopnea Gastrointestinal: denies: nausea, vomiting, diarrhea, constipation, abd pain, GI bleeding Musculoskeletal: denies: pain, tenderness, stiffness, swelling, arthritis/ arthralgias Neurological: denies: numbness, syncope, seizure, weakness - Objective Allergies/Adverse Reactions: Allergies Allergy/AdvReac Type Severity Reaction Status Date / Time Androgenic Anabolic Steroid Allergy Verified 06/10/19 05:10 erythromycin base Allergy Verified 06/10/19 05:10 prednisone Allergy Verified 06/10/19 05:10 Visit Medications: Current Medications Acetaminophen (Tylenol) 1,000 mg PO Q6H PRN PRN Reason: Mild Pain (1-3) Acetaminophen/Codeine Phosphate (Tylenol #3) 1 tab PO Q4H PRN PRN Reason: Mild Pain (1-3) Acetaminophen/Codeine Phosphate (Tylenol #3) 2 tab PO Q4H PRN PRN Reason: Moderate Pain (4-6) Amiodarone HCl (Cordarone) 400 mg PO TID [facility] Last Admin: 06/13/19 15:59 Dose: 400 mg Apixaban (Eliquis) 5 mg PO BID [facility] Last Admin: 06/13/19 09:14 Dose: 5 mg Famotidine (Pepcid) 20 mg PO DAILY [facility] Last Admin: 06/13/19 09:15 Dose: 20 mg HCTZ/Losartan Potassium (Hyzaar 100/25) 1 tab PO DAILY [facility] Last Admin: 06/13/19 09:14 Dose: 1 tab Hydralazine HCl (Apresoline) 10 mg SLOW IVP Q4H PRN PRN Reason: SBP > 180 and HR < 70 Metoprolol Succinate (Toprol Xl) 100 mg PO DAILY [facility] Last Admin: 06/13/19 09:14 Dose: 100 mg Miscellaneous Medication (Pharmacy To Dose) 1 each PO PRN PRN PRN Reason: RENALLY ADJUST Nitroglycerin (Nitrostat) 0.4 mg PO Q5MIN PRN PRN Reason: Chest Pain Last Admin: 06/11/19 08:01 Dose: 1 tab Ondansetron HCl (Zofran Odt) 4 mg PO Q6H PRN PRN Reason: Nausea/Vomiting Ondansetron HCl (Zofran) 4 mg IVP Q6H PRN PRN Reason: Nausea/Vomiting Sodium Chloride (Flush - Normal Saline) 10 ml IVF Q12HR EPI Last Admin: 06/13/19 09:55 Dose: Not Given Sodium Chloride (Flush - Normal Saline) 10 ml IVF PRN PRN PRN Reason: Saline Flush Tramadol HCl (Ultram) 50 mg PO Q6H PRN PRN Reason: Pain Last Admin: 06/12/19 01:27 Dose: 50 mg Vital Signs & Weight: Vital Signs Temp Pulse Resp BP BP Pulse Ox 06/13/19 16:00 98.4 F 65 16 131/66 97 06/13/19 11:35 98.6 F 63 16 130/63 93 L 06/13/19 08:05 99.0 F 67 16 151/69 H 96 Weight 173 lb 4.533 oz - Physical Exam General: alert & oriented x3 HEENT: mucus membranes moist Neck: supple neck Cardiac: regular rate and rhythm Lungs: clear to auscultation Neuro: grossly intact Abdomen: active bowel sounds Skin: clear Musculoskeletal: normal range of motion - Labs Result Diagrams: 06/13/19 04:45 06/13/19 09:22 Troponin/CKMB CK-MB (CK-2) 2.0 ng/mL (0-6.6) 06/11/19 04:59 Troponin I 0.309 ng/mL (< 0.028) H* 06/11/19 04:59 - Telemetry Sinus rhythms and dysrhythmias: sinus rhythm - Assessment/Plan Assessment/Plan: 1. Paroxysmal afib 2. Typical atrial flutter. 3. Atypical atrial flutter PLAN: - Continue amiodarone, BB and Eliquis for stroke prophylaxis. - S/P Cavo-tricuspid isthmus ablation. may need further ablations in the future. - No recurrence since yesterday. - Home tomorrow from cardiac standpoint.
[2019-06-14] MEDS ORDERED: Amiodarone 200 MG TAB PO SCH ×3 (09:00→10:00)
[2019-06-14] MEDS: Losartan/Hydrochlorothiazide 100 mg/25 mg Tablet PO SCH (09:13)
[2019-06-14] MEDS: Famotidine 20 MG TAB PO SCH (09:13)
[2019-06-14] MEDS: Apixaban 5 MG TAB PO SCH ×2 (09:13→20:48)
--- NOTE | 2019-06-14 09:50 | CON ---
DATE OF CONSULTATION: 06/11/2019 This is a consultation performed by Dr. Noah Joshua. REASON FOR CONSULTATION: Atrial arrhythmias and palpitations. HISTORY OF PRESENT ILLNESS: Ms. Sanz is a very pleasant 83-year-old female, who has been in relatively good health. She recently began to experience heart racing, palpitations with some associated with dizziness. When she began to feel dizzy, she would sit down and rest, but these episodes began to increase in frequency and duration as well as severity over the weekend causing her to seek evaluation by her primary care provider, Dr. Harris. An EKG was performed at his clinic, and she was found to be in an irregular rhythm. She was started on Eliquis 5 mg b.i.d., and that evening, she reported to the emergency room for further evaluation. She was given diltiazem and continues to be on a diltiazem drip for rate control. She has continued to have paroxysmal episodes of heart racing and palpitations with a slightly increased troponin. She is sometimes asymptomatic of her heart racing. She has not had any stroke or stroke-like symptoms. Other than the occasional palpitation with associated dizziness and chest tightness, she is completely asymptomatic and has no complaints. REVIEW OF SYSTEMS: Twelve-point review of systems is conducted, is negative, except that listed above in HPI. PAST MEDICAL HISTORY: 1. Hypertension. 2. Cholecystectomy. 3. Anal fissure repair. 4. Diagnosed with atrial arrhythmias on 06/08/2019 with initiation of anticoagulation, Eliquis. HOME MEDICATIONS: 1. Losartan/hydrochlorothiazide 100-25 mg tablets one p.o. daily. 2. Clonidine at bedtime. 3. Metoprolol 100 mg p.o. daily. 4. Eliquis 5 mg p.o. b.i.d. OBJECTIVE: GENERAL: The patient is alert and oriented. Speech is clear. Affect is appropriate. She is in no apparent distress. NEUROLOGIC: Grossly intact and nonfocal. HEENT: Normocephalic and atraumatic. Sclerae anicteric. EOMs are intact. Oral mucosa is moist. Adequate dentition. NECK: Supple without jugular venous distention. CARDIOVASCULAR: Heart rate is irregularly irregular, currently rate controlled. No significant murmur, rub, or gallop. PMI is nondisplaced. PULMONARY: Lungs are clear to auscultation bilaterally. Respirations are even and unlabored on room air. No wheezes, crackles, or rhonchi appreciated. GI: Abdomen is soft, nontender without palpable masses. Hepatojugular reflux is negative. EXTREMITIES: Warm and dry to touch without clubbing, cyanosis, or edema. LABORATORY DATA: Hematology was reviewed, and WBC is 14.8, hemoglobin and hematocrit are stable at 13.4 and 39.2 respectively, and platelet count is 279. Chemistry from this morning, potassium is 3.3, creatinine is 1.02, magnesium is 1.9. Serial troponins are conducted and trending down, having peaked upon admission, they were 0.5 on admission, currently trending down and 0.309. TSH is 3.11. IMAGING DATABASE: EKG and telemetry showed atrial flutter and atrial fibrillation, and occasionally a vary study and rapid at 170 beats per minute, then showing some variability and suggestive of atrial fibrillation in addition to some atrial tachycardia circuit set at lower rates. Echocardiogram was performed and reveals a preserved ejection fraction of 55% to 60%. The patient was in atrial fibrillation at the time of the exam, and the left atrium is severely dilated. Left atrial area is 24.26 cm2. Left atrial volume is 83.9. [id number] mitral regurgitation is seen. Moderately elevated PAP. LV size is normal. IMPRESSION: 1. Recently diagnosed atrial arrhythmias. 2. CHADS-VASc score of 4 on the basis of age, female gender, and history of hypertension, currently on Eliquis 5 mg p.o. b.i.d. without any significant bleeding issues. RECOMMENDATIONS: The patient is seen to have atrial fibrillation and atrial flutter and also likely atrial tachycardia by review of telemetry and EKGs. We discussed various treatment options including rate control strategy, antiarrhythmic therapy and ablation. She is currently on a diltiazem infusion, which has her adequately rate controlled. She has been on Eliquis 5 mg p.o. b.i.d., which was started earlier this week for stroke prophylaxis. Her slightly elevated troponin was deemed secondary to demand ischemia in the setting of RVR. Ultimately, after discussing treatment options with the patient and her family, recommendation would be for a SUMI guided right-sided atrial flutter ablation and electrophysiology study. This could offer better management control of her fastest atrial arrhythmias and allows to better manage her additional atrial arrhythmias medically. At this point, I would refrain from any left atrial ablation given her age in the recent diagnosis of these issues. Ideally, I would like to see these medically managed before considering something more invasive. I recommend continued anticoagulation with Eliquis 5 mg p.o. b.i.d. We discussed risks, benefits, and alternatives. The patient voices understanding and wishes to proceed with a SUMI guided EP study and ablation, which could likely be performed later today. After that, we will likely need to monitor her response to the ablation and for recurrence of additional left atrial arrhythmia issues or return of atrial tachycardia. Continue amiodarone following ablation. TIME OF EXAM: 9 a.m. when the exam was conducted. Job ID: [id number]
--- NOTE | 2019-06-14 10:07 | PRG ---
DATE OF SERVICE: 06/14/2019 SUBJECTIVE: Ms. Sanz seems to be doing well. Third day after her ablation procedure, she had a short occurrence of an atypical atrial flutter/fibrillation on Friday, but that spontaneously resolved. She maintained sinus rhythm ever since without major bradyarrhythmias. OBJECTIVE DATA: VITAL SIGNS: Blood pressure is 156/72, heart rate is 66, respirations 18, and temperature 97.9 degrees Fahrenheit. GENERAL: Alert and oriented woman, in no apparent distress. NECK: Supple. Jugular veins not distended. CHEST: Coarse without crackles. HEART: Sounds are regular to rate and rhythm. No murmur or gallop. ABDOMEN: Benign. Bowel sounds positive. The right femoral groin catheter access site is without hematoma. EXTREMITIES: Lower extremities without edema, clubbing, or cyanosis. SKIN: Without rash. DATABASE: Telemetry strips reveal sinus rhythm ever since 1 p.m. on Friday. No significant QT prolongation. LABORATORY DATA: White cell count is 16, the hemoglobin is 12.1 yesterday. Potassium level still in lower end at 3.1. As of yesterday, sodium 130, BUN is 25, creatinine 0.96. ASSESSMENT AND PLAN: Ms. Sanz is a pleasant 83-year-old woman with history of rapid atrial arrhythmias, atrial fibrillation/flutter were noted. She underwent SUMI and an ablation of the cavotricuspid isthmus on the . She had maintained sinus rhythm since Friday prior to which she had a short occurrence of atypical atrial flutter/fibrillation. During the EP study, also multiple left atrial circuits were also noted to be operational in her atrial arrhythmia. Overall, I find her post ablation state stable. We discussed the utility of amiodarone therapy and the need for tapering it down over months to down to 200 mg a day. She is to continue her oral anticoagulation with apixaban as already scheduled. My plan is to see her back in 4 to 6 weeks. Job ID: [id number]
--- NOTE | 2019-06-14 10:31 | PRG ---
DATE OF SERVICE: 06/14/2019 SUBJECTIVE: Ms. Sanz is doing better, but she still has periods of atrial fibrillation with a rapid rate 130 beats per minute. When the rate goes very fast, the QRS become somewhat widened. OBJECTIVE: VITAL SIGNS: Her blood pressure is 125/84, pulse is currently 110 to 120, it is irregular. LUNGS: Clear. CARDIAC: Irregular. ABDOMEN: Soft and nontender. EXTREMITIES: No edema. ASSESSMENT: 1. Atrial flutter status post ablation. 2. Atrial tachycardia. 3. Atrial fibrillation. 4. Underlying coronary artery disease. PLAN: 1. Increase amiodarone back to 400 mg 3 times a day. 2. Continue beta blockers. 3. Continue anticoagulation, probably home tomorrow if doing well. Job ID: [id number]
[2019-06-14] MEDS: traMADol HCl 50 MG TAB PO PRN (14:44)
[2019-06-14] MEDS: Amiodarone 200 MG TAB PO SCH ×2 (14:46→20:48)
--- NOTE | 2019-06-14 14:53 | PDOC.HOSPP ---
- Subjective Encounter Date: 06/14/19 Encounter Time: 14:30 Subjective: Patient seen and examined for Afib. Some chest pain radiating to L shoulder. Palpitations +. No new complaints. No overnight events - Objective Vital Signs & Weight: Vital Signs (12 hours) Temp Pulse Resp BP BP Pulse Ox 06/14/19 11:30 98.2 F 119 H 16 128/78 95 06/14/19 09:07 113 H 125/84 06/14/19 07:45 98.0 F 64 18 163/74 H 98 06/14/19 04:00 66 156/72 H Weight Weight 173 lb 4.533 oz I&O: 06/13/19 06/14/19 06/15/19 06:59 06:59 06:59 Intake Total 1235 1500 Balance 1235 1500 Result Diagrams: 06/13/19 04:45 06/13/19 09:22 EKG Reviewed by me: Yes (Tele Afib with RVR) Hospitalist ROS - Review of Systems Respiratory: denies: cough, dry, shortness of breath, hemoptysis, SOB with excertion, pleuritic pain, sputum, wheezing, other Gastrointestinal: denies: nausea, vomiting, abdominal pain, diarrhea, constipation, melena, hematochezia, other - Medication Medications: Active Medications Generic Name Dose Route Start Last Admin Trade Name Rand PRN Reason Stop Dose Admin Amiodarone HCl 400 mg 06/14/19 15:00 06/14/19 14:46 Cordarone PO 400 mg TID EPI Administration Apixaban 5 mg 06/11/19 21:00 06/14/19 09:13 Eliquis PO 5 mg BID EPI Administration Diltiazem HCl 10 mg 06/14/19 13:30 06/14/19 14:44 Cardizem SLOW IVP 06/14/19 15:30 10 mg NOW EPI Administration Famotidine 20 mg 06/11/19 09:00 06/14/19 09:13 Pepcid PO 20 mg DAILY EPI Administration HCTZ/Losartan Potassium 1 tab 06/13/19 09:00 06/14/19 09:13 Hyzaar 100/25 PO 1 tab DAILY EPI Administration Metoprolol Succinate 100 mg 06/12/19 09:00 06/14/19 09:12 Toprol Xl PO 100 mg DAILY EPI Administration Nitroglycerin 0.4 mg 06/11/19 04:20 06/11/19 08:01 Nitrostat PO 1 tab Q5MIN PRN Administration Chest Pain Sodium Chloride 10 ml 06/11/19 09:00 06/14/19 09:19 Flush - Normal Saline IVF 10 ml Q12HR EPI Administration Tramadol HCl 50 mg 06/10/19 16:15 06/14/19 14:44 Ultram PO 50 mg Q6H PRN Administration Pain - Exam General Appearance: NAD Neck: supple, no JVD Heart: no rubs, irregular Respiratory: CTAB, no rales Gastrointestinal: soft, non-tender, normal bowel sounds Extremities: no edema Hosp A/P - Plan IMPRESSION: Afib with RVR Aflutter s/p ablation CAD/Type 2 [place] Hypokalemia/Hyponatremia HTN CKD 2 PLAN: Cardizem drip restarted Cont Eliquis Recheck labs today Cont Toprol XL AM labs
[2019-06-14 15:45] LABS: Anion Gap 14 mmol/L (10-20); BUN (Urea Nitrogen) 21 mg/dL (9.8-20.1); Calc. Creatinine Clearance 53 mL/min (70-130); Calcium 9.7 mg/dL (7.8-10.44); Carbon Dioxide 25 mmol/L (23-31); Chloride 96 mmol/L (98-107); Estimated GFR-MDRD 51; Glucose 123 mg/dL (83-110); Magnesium 1.9 mg/dL (1.6-2.6); Potassium 3.9 mmol/L (3.5-5.1); Sodium 131 mmol/L (136-145)
[2019-06-14 16:21] LABS: CKMB 1.4 ng/mL (0-6.6)
[2019-06-14] MEDS: Ondansetron ODT 4 MG TAB PO PRN (18:05)
[2019-06-15 06:15] LABS: Hemoglobin 13.1 g/dL (12.0-16.0); Platelet Count 283 thou/uL (130-400)
[2019-06-15 06:36] LABS: Anion Gap 11 mmol/L (10-20); BUN (Urea Nitrogen) 22 mg/dL (9.8-20.1); Calc. Creatinine Clearance 58 mL/min (70-130); Calcium 9.6 mg/dL (7.8-10.44); Carbon Dioxide 28 mmol/L (23-31); Chloride 95 mmol/L (98-107); Estimated GFR-MDRD 57; Glucose 118 mg/dL (83-110); Magnesium 1.8 mg/dL (1.6-2.6); Potassium 3.3 mmol/L (3.5-5.1); Sodium 131 mmol/L (136-145)
[2019-06-15] MEDS ORDERED: Potassium Chloride 10 MEQ TAB PO SCH (09:00)
[2019-06-15] MEDS: Apixaban 5 MG TAB PO SCH ×2 (09:26→20:50)
[2019-06-15] MEDS: Amiodarone 200 MG TAB PO SCH ×3 (09:26→20:50)
[2019-06-15] MEDS: Famotidine 20 MG TAB PO SCH (09:26)
[2019-06-15] MEDS: Losartan/Hydrochlorothiazide 100 mg/25 mg Tablet PO SCH (09:27)
--- NOTE | 2019-06-15 11:50 | PDOC.CPN ---
- Subjective Date: 06/15/19 Time: 11:46 - Review of Systems Respiratory: denies: cough, congestion, shortness of breath, exercise intolerance Cardiovascular: reports: chest pain (mild chest discomfort with palpitations last night.). denies: palpitation, edema, paroxysmal nocturnal dyspnea, orthopnea Gastrointestinal: denies: nausea, vomiting, diarrhea, constipation, abd pain, GI bleeding Musculoskeletal: denies: pain, tenderness, stiffness, swelling, arthritis/ arthralgias Neurological: denies: numbness, syncope, seizure, weakness - Objective Allergies/Adverse Reactions: Allergies Allergy/AdvReac Type Severity Reaction Status Date / Time Androgenic Anabolic Steroid Allergy Verified 06/10/19 05:10 erythromycin base Allergy Verified 06/10/19 05:10 prednisone Allergy Verified 06/10/19 05:10 Visit Medications: Current Medications Acetaminophen (Tylenol) 1,000 mg PO Q6H PRN PRN Reason: Mild Pain (1-3) Acetaminophen/Codeine Phosphate (Tylenol #3) 1 tab PO Q4H PRN PRN Reason: Mild Pain (1-3) Acetaminophen/Codeine Phosphate (Tylenol #3) 2 tab PO Q4H PRN PRN Reason: Moderate Pain (4-6) Amiodarone HCl (Cordarone) 400 mg PO TID [facility] Last Admin: 06/15/19 09:26 Dose: 400 mg Apixaban (Eliquis) 5 mg PO BID [facility] Last Admin: 06/15/19 09:26 Dose: 5 mg Famotidine (Pepcid) 20 mg PO DAILY [facility] Last Admin: 06/15/19 09:26 Dose: 20 mg HCTZ/Losartan Potassium (Hyzaar 100/25) 1 tab PO DAILY [facility] Last Admin: 06/15/19 09:27 Dose: Not Given Hydralazine HCl (Apresoline) 10 mg SLOW IVP Q4H PRN PRN Reason: SBP > 180 and HR < 70 Diltiazem HCl 125 mg/ Sodium (Chloride) 125 mls @ 5 mls/hr IVPB INF [facility]; Protocol Metoprolol Succinate (Toprol Xl) 100 mg PO DAILY [facility] Last Admin: 06/15/19 09:26 Dose: 100 mg Miscellaneous Medication (Pharmacy To Dose) 1 each PO PRN PRN PRN Reason: RENALLY ADJUST Nitroglycerin (Nitrostat) 0.4 mg PO Q5MIN PRN PRN Reason: Chest Pain Last Admin: 06/11/19 08:01 Dose: 1 tab Ondansetron HCl (Zofran Odt) 4 mg PO Q6H PRN PRN Reason: Nausea/Vomiting Last Admin: 06/14/19 18:05 Dose: 4 mg Ondansetron HCl (Zofran) 4 mg IVP Q6H PRN PRN Reason: Nausea/Vomiting Potassium Chloride (Klor-Con 10) 10 meq PO BID-WM EPI Sodium Chloride (Flush - Normal Saline) 10 ml IVF Q12HR EPI Last Admin: 06/15/19 09:27 Dose: 10 ml Sodium Chloride (Flush - Normal Saline) 10 ml IVF PRN PRN PRN Reason: Saline Flush Last Admin: 06/14/19 14:48 Dose: 10 ml Tramadol HCl (Ultram) 50 mg PO Q6H PRN PRN Reason: Pain Last Admin: 06/14/19 14:44 Dose: 50 mg Vital Signs & Weight: Vital Signs Temp Pulse Resp BP BP Pulse Ox 06/15/19 07:47 98.3 F 92 16 116/66 95 06/15/19 04:00 99.0 F 55 L 16 123/65 92 L Weight 171 lb 8.314 oz - [facility] Age >75: 2 Female: 1 Risk Score: 3 - Physical Exam General: alert & oriented x3, appears well, no apparent distress HEENT: mucus membranes moist, normocephaly Neck: supple neck, midline trachea, no JVD/HJR, no masses, no bruit, no lymphadenopathy, no thromegaly Cardiac: other (irregularly irregular- AFib) Lungs: clear to auscultation, normal breath sounds, normal exam Neuro: grossly intact, no lateralizing findings Abdomen: unremarkable, soft, non-tender Skin: clear - Labs Result Diagrams: 06/15/19 05:43 06/15/19 05:43 Troponin/CKMB CK-MB (CK-2) 1.4 ng/mL (0-6.6) 06/14/19 15:13 Troponin I 0.217 ng/mL (< 0.028) H 06/14/19 15:13 - Telemetry Supraventricular conduction: atrial fibrillation (converted to AF yesterday afternoon with RVR.) - Assessment/Plan Assessment/Plan: 1. Atrial arrhythmias -s/p EPS and CTI ablatin on 06/11 -Paroxysmal atrial arrhythmias since then. Converted to Atypical atrial flutter 06/14 at ~1400. Amiodarone dose was increased back to 400mg PO TID and IV dilt gtt restarted. 2. Anticoagulation with Eliquis Continue Amiodarone 400mg PO TID. Maximize toprol (BB) as tolerated. So far BP is stable. Hopefully DC dilt gtt later today with added toprol. Possibly home tomorrow if rate controlled. Consider DCCV after amio loading as OP
[2019-06-15] MEDS: Ondansetron ODT 4 MG TAB PO PRN ×2 (12:20→18:06)
[2019-06-15] MEDS: Potassium Chloride 10 MEQ TAB PO SCH (17:03)
--- NOTE | 2019-06-15 18:56 | PRG ---
DATE OF SERVICE: 06/15/2019 SUBJECTIVE: Ms. Sanz is doing better today. She is no longer on diltiazem. She had to be given diltiazem yesterday due to rapid heart rate. Doing better today. OBJECTIVE: VITAL SIGNS: Blood pressure 112/71, pulse 90 and it is irregular. LUNGS: Clear. CARDIAC: Irregular. ABDOMEN: Soft and nontender. EXTREMITIES: No edema. ASSESSMENT: 1. Atrial fibrillation, paroxysmal likely. 2. Right-sided atrial flutter, ablated. 3. Probable left-sided atrial tachycardia, being treated with amiodarone and beta armen. 4. Probable underlying coronary artery disease. PLAN: Probably home tomorrow if stable. Ultimately may need to bring her back for cardiac catheterization, but we will need to take her off Eliquis for couple of days first. Job ID: [id number]
--- NOTE | 2019-06-15 22:54 | PDOC.HOSPP ---
- Subjective Encounter Date: 06/15/19 Encounter Time: 18:00 Subjective: Patient seen and examined for Afib. Cardizem drip dced. No CP or SOB. No new complaints. No overnight events - Objective Vital Signs & Weight: Vital Signs (12 hours) Temp Pulse Resp BP BP Pulse Ox 06/15/19 19:40 98.7 F 102 H 18 127/84 95 06/15/19 16:57 97.5 F L 91 18 112/71 96 06/15/19 12:09 97.6 F 83 18 111/58 L 95 Weight Weight 171 lb 8.314 oz I&O: 06/14/19 06/15/19 06/16/19 06:59 06:59 06:59 Intake Total 1500 1320 720 Balance 1500 1320 720 Result Diagrams: 06/15/19 05:43 06/16/19 05:11 EKG Reviewed by me: Yes (Tele Afib) Hospitalist ROS - Review of Systems Cardiovascular: denies: chest pain, palpitations, orthopnea, paroxysmal noc. dyspnea, edema, light headedness, other Gastrointestinal: denies: nausea, vomiting, abdominal pain, diarrhea, constipation, melena, hematochezia, other - Medication Medications: Active Medications Generic Name Dose Route Start Last Admin Trade Name Freq PRN Reason Stop Dose Admin Amiodarone HCl 400 mg 06/14/19 15:00 06/15/19 20:50 Cordarone PO 400 mg TID EPI Administration Apixaban 5 mg 06/11/19 21:00 06/15/19 20:50 Eliquis PO 5 mg BID EPI Administration Famotidine 20 mg 06/11/19 09:00 06/15/19 09:26 Pepcid PO 20 mg DAILY EPI Administration HCTZ/Losartan Potassium 1 tab 06/13/19 09:00 06/15/19 09:27 Hyzaar 100/25 PO Not Given DAILY EPI Nitroglycerin 0.4 mg 06/11/19 04:20 06/11/19 08:01 Nitrostat PO 1 tab Q5MIN PRN Administration Chest Pain Ondansetron HCl 4 mg 06/10/19 06:13 06/15/19 18:06 Zofran Odt PO 4 mg Q6H PRN Administration Nausea/Vomiting Potassium Chloride 10 meq 06/15/19 17:00 06/15/19 17:03 Klor-Con 10 PO 10 meq BID-WM EPI Administration Sodium Chloride 10 ml 06/11/19 09:00 06/15/19 20:54 Flush - Normal Saline IVF Not Given Q12HR EPI Sodium Chloride 10 ml 06/11/19 08:31 06/14/19 14:48 Flush - Normal Saline IVF 10 ml PRN PRN Administration Saline Flush Tramadol HCl 50 mg 06/10/19 16:15 06/14/19 14:44 Ultram PO 50 mg Q6H PRN Administration Pain - Exam General Appearance: NAD Neck: supple, no JVD Heart: no rubs, irregular Respiratory: CTAB, no wheezes, no rales, no ronchi Gastrointestinal: soft, non-distended Extremities: no edema Hosp A/P - Plan IMPRESSION: Afib with RVR Aflutter s/p ablation CAD/Type 2 [place] Hypokalemia/Hyponatremia HTN CKD 2 PLAN: Cardizem drip dced Cont Toprol XL - dose increased Cont Eliquis - Patient understands the risk associated with anticoagulation Replace Potassium AM labs
[2019-06-16 05:45] LABS: Anion Gap 11 mmol/L (10-20); BUN (Urea Nitrogen) 27 mg/dL (9.8-20.1); Calc. Creatinine Clearance 50 mL/min (70-130); Calcium 9.3 mg/dL (7.8-10.44); Carbon Dioxide 29 mmol/L (23-31); Chloride 98 mmol/L (98-107); Estimated GFR-MDRD 48; Glucose 104 mg/dL (83-110); Potassium 3.4 mmol/L (3.5-5.1); Sodium 135 mmol/L (136-145)
[2019-06-16] MEDS: Potassium Chloride 10 MEQ TAB PO SCH ×2 (08:30→17:38)
[2019-06-16] MEDS: Amiodarone 200 MG TAB PO SCH ×2 (08:30→20:26)
[2019-06-16] MEDS: Losartan/Hydrochlorothiazide 100 mg/25 mg Tablet PO SCH (08:31)
[2019-06-16] MEDS: Apixaban 5 MG TAB PO SCH ×2 (08:31→20:26)
[2019-06-16] MEDS: Famotidine 20 MG TAB PO SCH (08:31)
[2019-06-16] MEDS ORDERED: Potassium Chloride 20 MEQ TAB PO SCH (11:00)
--- NOTE | 2019-06-16 11:08 | PDOC.CPN ---
- Subjective Date: 06/16/19 Time: 09:00 Interval history: feels well today. back in SR yesterday. No new cardiac concerns or complaints - Review of Systems General: denies: fever/chills, weight/appetite/sleep changes, night sweats, fatigue Respiratory: denies: cough, congestion, shortness of breath, exercise intolerance Cardiovascular: denies: chest pain, palpitation, edema, paroxysmal nocturnal dyspnea, orthopnea Gastrointestinal: denies: nausea, vomiting, diarrhea, constipation, abd pain, GI bleeding Musculoskeletal: denies: pain, tenderness, stiffness, swelling, arthritis/ arthralgias Neurological: denies: numbness, syncope, seizure, weakness - Objective Allergies/Adverse Reactions: Allergies Allergy/AdvReac Type Severity Reaction Status Date / Time Androgenic Anabolic Steroid Allergy Verified 06/10/19 05:10 erythromycin base Allergy Verified 06/10/19 05:10 prednisone Allergy Verified 06/10/19 05:10 Visit Medications: Current Medications Acetaminophen (Tylenol) 1,000 mg PO Q6H PRN PRN Reason: Mild Pain (1-3) Acetaminophen/Codeine Phosphate (Tylenol #3) 1 tab PO Q4H PRN PRN Reason: Mild Pain (1-3) Acetaminophen/Codeine Phosphate (Tylenol #3) 2 tab PO Q4H PRN PRN Reason: Moderate Pain (4-6) Amiodarone HCl (Cordarone) 400 mg PO TID [facility] Last Admin: 06/16/19 08:30 Dose: 400 mg Apixaban (Eliquis) 5 mg PO BID [facility] Last Admin: 06/16/19 08:31 Dose: 5 mg Famotidine (Pepcid) 20 mg PO DAILY [facility] Last Admin: 06/16/19 08:31 Dose: 20 mg HCTZ/Losartan Potassium (Hyzaar 100/25) 1 tab PO DAILY [facility] Last Admin: 06/16/19 08:31 Dose: 1 tab Hydralazine HCl (Apresoline) 10 mg SLOW IVP Q4H PRN PRN Reason: SBP > 180 and HR < 70 Metoprolol Succinate (Toprol Xl) 50 mg PO 1700 [facility] Metoprolol Succinate (Toprol Xl) 100 mg PO DAILY [facility] Last Admin: 06/16/19 08:30 Dose: 100 mg Miscellaneous Medication (Pharmacy To Dose) 1 each PO PRN PRN PRN Reason: RENALLY ADJUST Nitroglycerin (Nitrostat) 0.4 mg PO Q5MIN PRN PRN Reason: Chest Pain Last Admin: 06/11/19 08:01 Dose: 1 tab Ondansetron HCl (Zofran Odt) 4 mg PO Q6H PRN PRN Reason: Nausea/Vomiting Last Admin: 06/15/19 18:06 Dose: 4 mg Ondansetron HCl (Zofran) 4 mg IVP Q6H PRN PRN Reason: Nausea/Vomiting Potassium Chloride (Klor-Con 10) 10 meq PO BID-WM EPI Last Admin: 06/16/19 08:30 Dose: 10 meq Potassium Chloride (K-Dur) 20 meq PO 1100 [facility] Stop: 06/16/19 13:00 Sodium Chloride (Flush - Normal Saline) 10 ml IVF Q12HR EPI Last Admin: 06/16/19 08:31 Dose: 10 ml Sodium Chloride (Flush - Normal Saline) 10 ml IVF PRN PRN PRN Reason: Saline Flush Last Admin: 06/14/19 14:48 Dose: 10 ml Tramadol HCl (Ultram) 50 mg PO Q6H PRN PRN Reason: Pain Last Admin: 06/14/19 14:44 Dose: 50 mg Vital Signs & Weight: Vital Signs Temp Pulse Resp BP BP Pulse Ox 06/16/19 08:30 96 06/16/19 07:29 98.3 F 55 L 14 139/62 96 06/16/19 04:00 97.8 F 59 L 14 147/64 H 94 L 06/16/19 00:00 98.1 F 107 H 16 141/83 H 94 L Weight 171 lb 8.314 oz - [facility] Age >75: 2 Female: 1 Risk Score: 3 - Quality Measures Condition: Atrial Fibrillation/Flutter (hx or current) - Physical Exam General: alert & oriented x3, appears well, no apparent distress HEENT: mucus membranes moist, normocephaly Neck: supple neck, midline trachea, no JVD/HJR Cardiac: regular rate and rhythm, no murmur, regular rate, regular rhythm Lungs: clear to auscultation, normal breath sounds Neuro: grossly intact, no lateralizing findings Abdomen: unremarkable, active bowel sounds Skin: clear - Labs Result Diagrams: 06/15/19 05:43 06/16/19 10:21 Troponin/CKMB CK-MB (CK-2) 1.4 ng/mL (0-6.6) 06/14/19 15:13 Troponin I 0.217 ng/mL (< 0.028) H 06/14/19 15:13 - Telemetry Sinus rhythms and dysrhythmias: sinus rhythm - Assessment/Plan Assessment/Plan: 1. Atrial arrhythmias -s/p EPS and CTI ablatin on 06/11 -Paroxysmal atrial arrhythmias 2. Anticoagulation with Eliquis Reduced amiodarone to 400mg PO BID. Continue Toprol XL 100mg Q AM and 50mg QPM. Continue eliquis. Converted to SR on 06/15. Will continue to monitor rhythm
--- NOTE | 2019-06-16 12:37 | PRG ---
DATE OF SERVICE: 06/16/2019 SUBJECTIVE: Ms. Sanz is back in sinus rhythm. She feels a little bit dizzy and lightheaded when she gets up. Amiodarone dose was reduced. She is on 400 mg twice a day. She is on metoprolol 150 mg a day total. She has mild sinus bradycardia now with heart rate of 53. ASSESSMENT: 1. Dysrhythmias as outlined previously. 2. Mild sinus bradycardia. PLAN: Keep until tomorrow. We may need to reduce the beta-armen dose. We may need to reduce amiodarone dose tomorrow as well. We will see how the heart rate is. Job ID: [id number]
[2019-06-16] MEDS: Ondansetron ODT 4 MG TAB PO PRN (17:37)
--- NOTE | 2019-06-16 19:48 | EKG ---
Test Reason : Blood Pressure : / mmHG Vent. Rate : 111 BPM Atrial Rate : 111 BPM P-R Int : 000 ms QRS Dur : 098 ms QT Int : 370 ms P-R-T Axes : 000 -50 043 degrees QTc Int : 503 ms Atrial fibrillation with rapid ventricular response with premature ventricular or aberrantly conducte d complexes Left axis deviation Septal infarct , age undetermined Abnormal ECG When compared with ECG of 11-JUN-2019 13:25, Atrial fibrillation has replaced Sinus rhythm Vent. rate has increased BY 45 BPM Septal infarct is now Present Non-specific change in ST segment in Anterior leads Nonspecific T wave abnormality now evident in Inferior leads Confirmed by JEFFREY SINGLETARY, DR. Mars ([id number]) on 06/16/2019 7:47:20 PM Referred By: [facility] Confirmed By:DR. Madisyn MURPHY MD
--- NOTE | 2019-06-16 19:52 | PDOC.HOSPP ---
- Subjective Encounter Date: 06/16/19 Encounter Time: 14:00 Subjective: Patient seen and examined for Afib. In SR. Some lightheadedness earlier. No CP or SOB. No new complaints. No overnight events - Objective Vital Signs & Weight: Vital Signs (12 hours) Temp Pulse Resp BP BP Pulse Ox 06/16/19 15:37 98.4 F 55 L 16 147/67 H 97 06/16/19 11:10 97.4 F L 59 L 12 121/58 L 95 06/16/19 08:30 96 Weight Weight 171 lb 8.314 oz I&O: 06/15/19 06/16/19 06/17/19 06:59 06:59 06:59 Intake Total 1320 720 960 Balance 1320 720 960 Result Diagrams: 06/15/19 05:43 06/16/19 10:21 EKG Reviewed by me: Yes (Tele SR) Hospitalist ROS - Review of Systems Cardiovascular: reports: light headedness. denies: chest pain, palpitations, orthopnea, paroxysmal noc. dyspnea, edema, other Gastrointestinal: denies: nausea, vomiting, abdominal pain, diarrhea, constipation, melena, hematochezia, other - Medication Medications: Active Medications Generic Name Dose Route Start Last Admin Trade Name Freq PRN Reason Stop Dose Admin Apixaban 5 mg 06/11/19 21:00 06/16/19 08:31 Eliquis PO 5 mg BID EPI Administration Famotidine 20 mg 06/11/19 09:00 06/16/19 08:31 Pepcid PO 20 mg DAILY EPI Administration HCTZ/Losartan Potassium 1 tab 06/13/19 09:00 06/16/19 08:31 Hyzaar 100/25 PO 1 tab DAILY EPI Administration Metoprolol Succinate 50 mg 06/16/19 17:00 06/16/19 17:38 Toprol Xl PO 50 mg 1700 EPI Administration Metoprolol Succinate 100 mg 06/16/19 09:00 06/16/19 08:30 Toprol Xl PO 100 mg DAILY EPI Administration Nitroglycerin 0.4 mg 06/11/19 04:20 06/11/19 08:01 Nitrostat PO 1 tab Q5MIN PRN Administration Chest Pain Ondansetron HCl 4 mg 06/10/19 06:13 06/16/19 17:37 Zofran Odt PO 4 mg Q6H PRN Administration Nausea/Vomiting Potassium Chloride 10 meq 06/15/19 17:00 06/16/19 17:38 Klor-Con 10 PO 10 meq BID-WM EPI Administration Sodium Chloride 10 ml 06/11/19 09:00 06/16/19 08:31 Flush - Normal Saline IVF 10 ml Q12HR EPI Administration Sodium Chloride 10 ml 06/11/19 08:31 06/14/19 14:48 Flush - Normal Saline IVF 10 ml PRN PRN Administration Saline Flush Tramadol HCl 50 mg 06/10/19 16:15 06/14/19 14:44 Ultram PO 50 mg Q6H PRN Administration Pain - Exam General Appearance: NAD Heart: RRR, no gallops Respiratory: CTAB, no rales Gastrointestinal: soft, non-tender, normal bowel sounds Extremities: no edema Hosp A/P - Plan IMPRESSION: Afib with RVR --> in SR Aflutter s/p ablation CAD/Type 2 [place] Hypokalemia/Hyponatremia HTN CKD 2 PLAN: Replace Potassium Cont current dose of Toprol XL Cont Eliquis AM labs
[2019-06-17 05:56] LABS: Anion Gap 13 mmol/L (10-20); BUN (Urea Nitrogen) 27 mg/dL (9.8-20.1); Calc. Creatinine Clearance 51 mL/min (70-130); Calcium 9.4 mg/dL (7.8-10.44); Carbon Dioxide 26 mmol/L (23-31); Chloride 99 mmol/L (98-107); Estimated GFR-MDRD 49; Glucose 96 mg/dL (83-110); Potassium 3.6 mmol/L (3.5-5.1); Sodium 134 mmol/L (136-145)
[2019-06-17 07:25] VITALS: TEMP 98.3
[2019-06-17] MEDS: Amiodarone 200 MG TAB PO SCH (08:50)
[2019-06-17] MEDS: Potassium Chloride 10 MEQ TAB PO SCH (08:50)
[2019-06-17] MEDS: Losartan/Hydrochlorothiazide 100 mg/25 mg Tablet PO SCH (08:50)
[2019-06-17] MEDS: Famotidine 20 MG TAB PO SCH (08:50)
[2019-06-17] MEDS: Apixaban 5 MG TAB PO SCH (08:51)
--- NOTE | 2019-06-17 10:02 | PRG ---
DATE OF SERVICE: 06/17/2019 SUBJECTIVE: Ms. Sanz is doing well, no complaints. She feels well. OBJECTIVE: VITAL SIGNS: Her blood pressure 153/72, pulse 52 and sinus. LUNGS: Clear. CARDIAC: Normal S1, normal S2. ABDOMEN: Soft, nontender. EXTREMITIES: There is no edema. The patient is in sinus bradycardia. ASSESSMENT: 1. Atrial arrhythmia, status post right-sided atrial flutter ablation, but also had left-sided atrial flutter as well as atrial fibrillation, ultimately responded to amiodarone. 2. Probable underlying coronary artery disease. PLAN: 1. She will go home on metoprolol succinate 100 mg a day. 2. Apixaban 5 mg twice a day. 3. Amiodarone 200 mg 3 times a day for two weeks, then 200 mg once a day. 4. For now, would add aspirin 81 mg a day. 5. Ultimately consideration for cardiac catheterization. She did have chest pain when she had the tachycardia. She also had a non-ST elevation infarction type 2, demand ischemia with tachycardia with peak troponin of 0.5. For now, the goal of therapy will be medical therapy including controlled dysrhythmias. 6. On Hyzaar for blood pressure as well. 7. We do not have a recent cholesterol level, consideration for lipid-lowering therapy if her cholesterol has been elevated in the past. We will have that information from a previous lab test, but it is probably available from the laboratory in [place]. Job ID: [id number]
[2019-06-17 12:28] VITALS: BP 174/74
[2019-06-17] MEDS ORDERED: Amiodarone 200 MG TAB PO SCH (15:00)
--- NOTE | 2019-06-17 15:26 | PDOC.CPN ---
- Subjective Date: 06/17/19 Time: 08:00 Interval history: feels well today.remains in SR without significant bradycardia overnight. No new cardiac concerns or complaints - Review of Systems General: denies: fever/chills, weight/appetite/sleep changes, night sweats, fatigue Respiratory: denies: cough, congestion, shortness of breath, exercise intolerance Cardiovascular: denies: chest pain, palpitation, edema, paroxysmal nocturnal dyspnea, orthopnea Gastrointestinal: denies: nausea, vomiting, diarrhea, constipation, abd pain, GI bleeding Musculoskeletal: denies: pain, tenderness, stiffness, swelling, arthritis/ arthralgias Neurological: denies: numbness, syncope, seizure, weakness - Objective Allergies/Adverse Reactions: Allergies Allergy/AdvReac Type Severity Reaction Status Date / Time Androgenic Anabolic Steroid Allergy Verified 06/10/19 05:10 erythromycin base Allergy Verified 06/10/19 05:10 prednisone Allergy Verified 06/10/19 05:10 Vital Signs & Weight: Vital Signs Temp Pulse Resp BP BP Pulse Ox 06/17/19 12:22 58 L 174/74 H 06/17/19 08:50 96 06/17/19 07:20 98.3 F 54 L 18 153/72 H 96 06/17/19 04:00 98.2 F 57 L 16 160/63 H 95 Weight 170 lb 1.6 oz - Quality Measures Condition: Atrial Fibrillation/Flutter (hx or current) - Physical Exam General: alert & oriented x3, appears well, no apparent distress HEENT: mucus membranes moist, normocephaly Neck: supple neck Cardiac: regular rate and rhythm Lungs: clear to auscultation - Labs Result Diagrams: 06/15/19 05:43 06/17/19 05:04 Troponin/CKMB CK-MB (CK-2) 1.4 ng/mL (0-6.6) 06/14/19 15:13 Troponin I 0.217 ng/mL (< 0.028) H 06/14/19 15:13 - Telemetry Sinus rhythms and dysrhythmias: sinus rhythm - Assessment/Plan Assessment/Plan: 1. Atrial arrhythmias -s/p EPS and CTI ablatin on 06/11 -Paroxysmal atrial arrhythmias 2. Anticoagulation with Eliquis Reduced amiodarone to 400mg PO BID. Continue Toprol XL 100mg Q AM and 50mg QPM. Continue eliquis. Converted to SR on 06/15. OK to DC home
--- NOTE | 2019-06-17 18:25 | DIS ---
DATE OF ADMISSION: 06/10/2019 DATE OF DISCHARGE: 06/17/2019 DISCHARGE DISPOSITION: Home with [facility]. FOLLOWUP: 1. Follow up with primary care physician, Dr. Diego Harris, in 1 week. 2. Follow up with Electrophysiology, Dr. Joshua as well as Cardiology, Dr. Roldan in 2 weeks. DISCHARGE MEDICATIONS: 1. Metoprolol extended release 100 mg daily. 2. Aspirin 81 mg daily. 3. Eliquis 5 mg twice a day. 4. Losartan/hydrochlorothiazide 100/25 daily. 5. Amiodarone 200 mg three times daily for 2 weeks, then daily. INPATIENT CONSULTANTS: 1. Cardiology, Dr. Roldan. 2. Electrophysiology, Dr. Joshua. INPATIENT PROCEDURES: 1. On June 11, 2019, the patient underwent electrophysiology study as well as radiofrequency ablation of atrial flutter. 2. Echocardiogram on June 10, 2019 showed normal left ventricular ejection fraction of 55% to 60% with [id number] mitral regurgitation, moderate tricuspid regurgitation. 3. On June 11, 2019, the patient underwent transesophageal echocardiogram that was negative for intracardiac clots. BRIEF HOSPITAL COURSE: The patient is an 83-year-old female with atrial arrhythmias, presented to the hospital with palpitations and shortness of breath on June 10, 2019. Please refer to the history and physical for further details. The patient was admitted to the telemetry unit with a diagnosis of atrial fibrillation with rapid ventricular response. She was evaluated by Cardiology as well as Electrophysiology. Initially, she was started on Cardizem drip that was later discontinued. She underwent transesophageal echocardiogram followed by ablation for atrial flutter. She then developed atrial fibrillation post ablation. She was started on amiodarone. She was monitored closely while adjusting her medications. Initially, she was started on high dose of amiodarone, which has been cut down. She has been cleared by Cardiology and Electrophysiology for discharge. FINAL DIAGNOSES: 1. Atrial fibrillation/flutter with rapid ventricular response. 2. Status post ablation for atrial flutter. 3. Elevated troponin secondary to demand ischemia/type 2 myocardial infarction. 4. Coronary artery disease. 5. Hypokalemia, replaced. 6. Hyponatremia. 7. Hypertension. 8. Chronic kidney disease, stage 3. 9. Obesity with a BMI of 30.1. PLAN: Plan was discussed with the patient and the family in detail. Job ID: [id number]
[2019-06-18] MEDS ORDERED: Aspirin 81 mg Enteric Coated Tablet PO SCH (09:00)
== END 2019-06-17 12:28 | disposition home health service (06) | DRG 273 ==
LOC: ERS 02:41 → 2NO 04:19
PROVIDERS: ADMIT Family Medicine; ATTEND Family Medicine
PROC: B24BZZ4 Ultrasonography of Heart with Aorta, Transesophageal (ICD-10-PCS; 2019-06-11)
PROC: 02583ZZ Destruction of Conduction Mechanism, Percutaneous Approach (ICD-10-PCS; principal; 2019-06-14)
PROC: 4A023FZ Measurement of Cardiac Rhythm, Percutaneous Approach (ICD-10-PCS; 2019-06-14)
PROC: 4A0234Z Measurement of Cardiac Electrical Activity, Percutaneous Approach (ICD-10-PCS; 2019-06-14)
PROC: 02K83ZZ Map Conduction Mechanism, Percutaneous Approach (ICD-10-PCS; 2019-06-14)
DX: I48.3 Typical atrial flutter (principal); I21.A1 Myocardial infarction type 2; E87.1 Hypo-osmolality and hyponatremia; N17.9 Acute kidney failure, unspecified; I48.91 Unspecified atrial fibrillation; I48.4 Atypical atrial flutter; I25.10 Atherosclerotic heart disease of native coronary artery without angina pectoris; Z90.49 Acquired absence of other specified parts of digestive tract; Z79.899 Other long term (current) drug therapy; Z88.8 Allergy status to other drugs, medicaments and biological substances; E87.6 Hypokalemia; Z79.01 Long term (current) use of anticoagulants; D72.829 Elevated white blood cell count, unspecified; I12.9 Hypertensive chronic kidney disease with stage 1 through stage 4 chronic kidney disease, or unspecified chronic kidney disease; N18.3 Chronic kidney disease, stage 3 (moderate); E66.9 Obesity, unspecified; Z68.30 Body mass index [BMI] 30.0-30.9, adult
CPT/HCPCS: 36415; 71045; 76942; 80048; 80053; 82550; 82553; 82565; 83735; 84443; 84484; 85007; 85014; 85018; 85025; 85027; 85049; 93005; 93010; 93306; 93312; 93613; 93623; 93653; 94760; 96365; 96366; C1730; C1732; C1769; C2630; J1265; J1644; J2001; J2704; J3475; J3480; J3490; Q0162

== ENCOUNTER 2019-08-19 03:38 | Emergency (ER) | payer MEDICARE ==
[2019-08-19 04:08] LABS: #Eosinphils 0.2 thou/uL (0.0-0.7); #Lymphocytes 2.2 thou/uL (1.20-3.40); #Monocytes 1.1 thou/uL (0.11-0.59); #Neutrophils 6.7 thou/uL (1.40-6.50); %Basophils 0.4 % (0.0-1.0); %Lymphocytes 21.6 % (21.0-51.0); %Monocytes 10.8 % (0.0-10.0); %Neutrophils 65.2 % (42.0-75.0); Hemoglobin 13.3 g/dL (12.0-16.0); Mean Corpuscular HGB CONC 33.3 g/dL (32.0-36.0); Mean Corpuscular Hemoglobin 31.7 pg (27.0-31.0); Mean Corpuscular Volume 95.3 fL (78.0-98.0); Mean Platelet Volume 6.9 fL (7.4-10.4); Platelet Count 265 thou/uL (130-400); RBC Distribution Width 11.9 % (11.5-14.5); Red Blood Cell (RBC) Count 4.21 mill/uL (4.20-5.40); White Blood Cell (WBC) Count 10.3 thou/uL (4.8-10.8)
[2019-08-19 04:28] LABS: ALT (SGPT) 21 U/L (8-55); AST (SGOT) 23 U/L (5-34); Albumin 3.9 g/dL (3.4-4.8); Alkaline Phosphatase 77 U/L (40-110); Anion Gap 15 mmol/L (10-20); BUN (Urea Nitrogen) 22 mg/dL (9.8-20.1); Bilirubin, Total 0.4 mg/dL (0.2-1.2); Calc. Creatinine Clearance 0 mL/min (70-130); Calcium 9.5 mg/dL (7.8-10.44); Carbon Dioxide 27 mmol/L (23-31); Chloride 98 mmol/L (98-107); Estimated GFR-MDRD 49; Globulin 3.3 g/dL (2.4-3.5); Glucose 136 mg/dL (83-110); Potassium 3.5 mmol/L (3.5-5.1); Protein, Total 7.2 g/dL (6.0-8.3); Sodium 136 mmol/L (136-145)
--- NOTE | 2019-08-19 07:59 | RAD ---
Portable frontal chest radiograph: 08/19/2019 COMPARISON: 06/10/2019 HISTORY: Chest burning/discomfort FINDINGS: Mild increased linear interstitial density with pulmonary hyperinflation. Descending thorac ic aorta is tortuous and prominent distally. There is atherosclerotic calcification of the aortic arch. There is a questionable small nodule in the left suprahilar region versus confluence of vascular and osseous shadows. Recommend nonemergent chest CT for further assessment. IMPRESSION: No acute findings. Incidental findings as detailed above, including a possible subcentime ter pulmonary nodule in the left upper lobe region. Recommend nonemergent CT examination of the chest CODE T Code lung nodule
== END 2019-08-19 05:30 | disposition home or self-care (01) ==
LOC: ERS 03:38
DX: R07.89 Other chest pain (principal); I48.92 Unspecified atrial flutter; I10 Essential (primary) hypertension; Z79.01 Long term (current) use of anticoagulants; Z79.899 Other long term (current) drug therapy
CPT/HCPCS: 36415; 71045; 80053; 84484; 85025; 93005

== ENCOUNTER 2019-10-04 07:05 | Inpatient (IN) | payer MEDICARE ==
[2019-10-04] MEDS ORDERED: Furosemide 40 MG/4 ML VIAL ONE (07:53)
[2019-10-04] MEDS ORDERED: Nitroglycerin 2% Ointment 1 INCH/1 GM Packet ONE (07:53)
[2019-10-04 07:55] LABS: #Basophils 0.1 thou/uL (0.0-0.2); #Eosinphils 0.1 thou/uL (0.0-0.7); #Lymphocytes 1.8 thou/uL (1.20-3.40); %Basophils 0.5 % (0.0-1.0); %Eosinophils 0.8 % (0.0-10.0); %Lymphocytes 13.5 % (21.0-51.0); %Monocytes 7.5 % (0.0-10.0); %Neutrophils 77.7 % (42.0-75.0); Hemoglobin 13.1 g/dL (12.0-16.0); Mean Corpuscular HGB CONC 32.8 g/dL (32.0-36.0); Mean Corpuscular Hemoglobin 31.2 pg (27.0-31.0); Mean Corpuscular Volume 95.2 fL (78.0-98.0); Platelet Count 293 thou/uL (130-400); White Blood Cell (WBC) Count 12.9 thou/uL (4.8-10.8)
[2019-10-04 08:08] LABS: ALT (SGPT) 21 U/L (8-55); AST (SGOT) 20 U/L (5-34); Albumin 3.9 g/dL (3.4-4.8); Alkaline Phosphatase 89 U/L (40-110); Anion Gap 11 mmol/L (10-20); BUN (Urea Nitrogen) 26 mg/dL (9.8-20.1); Bilirubin, Total 0.5 mg/dL (0.2-1.2); Calc. Creatinine Clearance 0 mL/min (70-130); Calcium 9.4 mg/dL (7.8-10.44); Carbon Dioxide 31 mmol/L (23-31); Chloride 99 mmol/L (98-107); Estimated GFR-MDRD 46; Globulin 3.5 g/dL (2.4-3.5); Glucose 115 mg/dL (83-110); Potassium 3.9 mmol/L (3.5-5.1); Protein, Total 7.4 g/dL (6.0-8.3); Sodium 137 mmol/L (136-145)
--- NOTE | 2019-10-04 08:22 | RAD ---
+CHEST 1 VIEW: Date: 10/04/2019 HISTORY: Chest pain. Dyspnea. COMPARISON: 08/19/2019. FINDINGS: Cardiac silhouette is magnified by projection. Pulmonary vasculature is slightly engorged. Lobular pr ominence at the right suprahilar level may represent engorgement of the azygos vein. Mediastinum is midline. No lobar consolidation or evidence of pneumothorax. IMPRESSION: Mild pulmonary vascular congestion. POS: TPC
[2019-10-04 08:32] LABS: CKMB 2.8 ng/mL (0-6.6)
[2019-10-04 11:50] LABS: Troponin I 0.301 ng/mL (< 0.028)
[2019-10-04 13:08] VITALS: BMI 32.1
[2019-10-04] MEDS ORDERED: Dextrose 5 % And 0.9 % NaCl 1,000 ML IV SCH (13:45)
[2019-10-04] MEDS ORDERED: Labetalol HCl 100 MG/20 ML VIAL SLOW IVP PRN (13:46)
[2019-10-04 14:04] LABS: #Basophils 0.1 thou/uL (0.0-0.2); #Eosinphils 0.1 thou/uL (0.0-0.7); #Lymphocytes 2.3 thou/uL (1.20-3.40); #Neutrophils 8.1 thou/uL (1.40-6.50); %Basophils 0.6 % (0.0-1.0); %Eosinophils 0.5 % (0.0-10.0); %Lymphocytes 20.2 % (21.0-51.0); %Monocytes 8.5 % (0.0-10.0); %Neutrophils 70.2 % (42.0-75.0); Hemoglobin 14.2 g/dL (12.0-16.0); Mean Corpuscular HGB CONC 33.9 g/dL (32.0-36.0); Mean Corpuscular Hemoglobin 32.1 pg (27.0-31.0); Mean Corpuscular Volume 94.5 fL (78.0-98.0); Mean Platelet Volume 6.9 fL (7.4-10.4); Platelet Count 314 thou/uL (130-400); RBC Distribution Width 11.9 % (11.5-14.5); Red Blood Cell (RBC) Count 4.45 mill/uL (4.20-5.40); White Blood Cell (WBC) Count 11.6 thou/uL (4.8-10.8)
[2019-10-04 14:23] LABS: ALT (SGPT) 21 U/L (8-55); AST (SGOT) 21 U/L (5-34); Albumin 4.1 g/dL (3.4-4.8); Alkaline Phosphatase 95 U/L (40-110); Anion Gap 14 mmol/L (10-20); BUN (Urea Nitrogen) 24 mg/dL (9.8-20.1); Bilirubin, Total 0.6 mg/dL (0.2-1.2); Calc. Creatinine Clearance 46 mL/min (70-130); Calcium 10.2 mg/dL (7.8-10.44); Carbon Dioxide 32 mmol/L (23-31); Chloride 95 mmol/L (98-107); Estimated GFR-MDRD 43; Globulin 4.2 g/dL (2.4-3.5); Glucose 117 mg/dL (83-110); Potassium 3.3 mmol/L (3.5-5.1); Protein, Total 8.3 g/dL (6.0-8.3); Sodium 138 mmol/L (136-145)
[2019-10-04] MEDS: Labetalol HCl 100 MG/20 ML VIAL SLOW IVP SCH ×2 (14:27→14:47)
[2019-10-04 14:30] LABS: Troponin I 0.304 ng/mL (< 0.028)
[2019-10-04] MEDS ORDERED: Amiodarone 200 MG TAB PO SCH ×2 (15:00→21:00)
[2019-10-04] MEDS ORDERED: Amiodarone 450 MG in Dextrose 5% in Water 250 ML IVPB SCH (15:15)
[2019-10-04] MEDS ORDERED: Amiodarone HCl 150 MG in Dextrose 5% in Water 100 ML IVPB SCH (15:15)
[2019-10-04] MEDS ORDERED: Amiodarone HCl 450 MG in Dextrose 5% in Water 250 ML IVPB SCH (15:15)
[2019-10-04 16:40] LABS: Troponin I 0.198 ng/mL (< 0.028)
[2019-10-04] MEDS ORDERED: Morphine 2 MG/ML SYRINGE SLOW IVP PRN (19:30)
[2019-10-04] MEDS ORDERED: Potassium Chloride 20 MEQ TAB PO SCH (19:45)
--- NOTE | 2019-10-04 19:48 | PDOC.HHP ---
Hospitalist HPI - History of Present Illness shortness of breath and palpitations History of Present Illness: 84yo F w/ MHx of HTN and atrial fibrillation s/p ablation in 03/2019 presented to the hospital for palpitations and shortness of breath. Started yesterday while she sleeping, shortness of breath woke her up and she also noticed palpitations. Though she experienced palpitations before, it was never associated with shortness of breath. Later today, substernal pressure occurred and remained constant for a few hours, so she was brought to the ED with family. ED Course: In the ED, she was found to have atrial fibrillation with RVR that later converted to sinus tachycardia, as well as grossly elevated blood pressure and was started on a nitro patch.CXR showed signs of mild pulmonary edema, and the patient had peripheral edema so she was admitted to telemetry for new onset heart failure. Hospitalist ROS - Review of Systems Constitutional: denies: fever, chills, sweats, weakness, malaise, other Respiratory: reports: shortness of breath, SOB with excertion. denies: cough, dry, hemoptysis, pleuritic pain, sputum, wheezing, other Cardiovascular: reports: chest pain, palpitations, orthopnea, paroxysmal noc. dyspnea, edema, light headedness Gastrointestinal: denies: nausea, vomiting, abdominal pain, diarrhea, constipation, melena, hematochezia, other Genitourinary: denies: dysuria, frequency, incontinence, hematuria, retention, other Musculoskeletal: denies: neck pain, shoulder pain, arm pain, back pain, hand pain, leg pain, foot pain, other Neurological: denies: weakness, numbness, incoordination, change in speech, confusion, seizures, other All other systems reviewed; all pertinent +/- noted in HPI/Subj - Medication Medications: Active Medications Generic Name Dose Route Start Last Admin Trade Name Freq PRN Reason Stop Dose Admin Apixaban 5 mg 10/04/19 21:00 10/04/19 13:41 Eliquis PO 5 mg BID EPI Administration Dextrose/Sodium Chloride 1,000 mls @ 50 mls/hr 10/04/19 13:45 10/04/19 13:46 D5 0.9% Ns IV 1,000 mls .Q20H EPI Administration Amiodarone HCl 450 mg/ 259 mls @ 0 mls/hr 10/04/19 15:15 10/04/19 15:32 Miscellaneous Medication 1 IVPB 259 mls each/ Dextrose/Water INF EPI Administration Protocol As Directed Labetalol HCl 10 mg 10/04/19 13:46 10/04/19 14:18 Normodyne SLOW IVP 10 mg Q4H PRN Administration SBP Greater Than 180 Hospitalist History - Past Medical History Source: patient, family Cardiac: reports: AFIB, HTN, Valve insufficiency Pulmonary: reports: no pertinent history [employer]: reports: no pertinent history Gastrointestinal: reports: no pertinent history Heme/Onc: reports: no pertinent history Hepatobiliary: reports: no pertinent history Psych: reports: no pertinent history Musculoskeletal: reports: no pertinent history Rheumatologic: reports: no pertinent history Infectious Disease: reports: no pertinent history ENT: reports: no pertinent history Renal/: reports: no pertinent history Endocrine: reports: no pertinent history Dermatology: reports: no pertinent history - Past Surgical History Past Surgical History: reports: no pertinent history - Family History Family History: reports: hypertension - Social History Smoking Status: Never smoker Alcohol: reports: None Drugs: reports: none Living Situation: With Family Domestic Violence: Negative Activity level: independent ambulation - Exam General Appearance: NAD, awake alert Eye: PERRL, anicteric sclera ENT: normocephalic atraumatic, no oropharyngeal lesions, moist mucosa Neck: supple, symmetric, no JVD, no thyromegaly, no lymphadenopathy, no carotid bruit Heart: III/IV Heart - other findings: regular rhythm, tachcardia, but on arrival to floor, irregularly irregular Respiratory: no wheezes, no ronchi, normal chest expansion, no tachypnea, rales Respiratory - other findings: b/l lower field rales Gastrointestinal: soft, non-tender, non-distended, normal bowel sounds, no palpable masses, no hepatomegaly, no splenomegaly, no bruit Extremities - other findings: b/l edema to mid pretibial level Skin: normal turgor, no lesions, no rashes Neurological: cranial nerve grossly intact, normal sensation to touch, no weakness, no focal deficits, no new deficit Musculoskeletal: normal tone, normal strength, no muscle wasting Psychiatric: normal affect, normal behavior, A&O x 3 Hospitalist Results - Labs Result Diagrams: 10/04/19 13:53 10/04/19 13:53 Lab results: WBC 11.6 thou/uL (4.8-10.8) H 10/04/19 13:53 Hgb 14.2 g/dL (12.0-16.0) 10/04/19 13:53 Hct 42.0 % (36.0-47.0) 10/04/19 13:53 MCV 94.5 fL (78.0-98.0) 10/04/19 13:53 Plt Count 314 thou/uL (130-400) 10/04/19 13:53 Neutrophils % 70.2 % (42.0-75.0) 10/04/19 13:53 Sodium 138 mmol/L (136-145) 10/04/19 13:53 Potassium 3.3 mmol/L (3.5-5.1) L 10/04/19 13:53 Chloride 95 mmol/L (98-107) L 10/04/19 13:53 Carbon Dioxide 32 mmol/L (23-31) H 10/04/19 13:53 BUN 24 mg/dL (9.8-20.1) H 10/04/19 13:53 Creatinine 1.20 mg/dL (0.6-1.1) H 10/04/19 13:53 Glucose 117 mg/dL (83-110) H 10/04/19 13:53 Calcium 10.2 mg/dL (7.8-10.44) 10/04/19 13:53 Total Bilirubin 0.6 mg/dL (0.2-1.2) 10/04/19 13:53 AST 21 U/L (5-34) 10/04/19 13:53 ALT 21 U/L (8-55) 10/04/19 13:53 Alkaline Phosphatase 95 U/L (40-110) 10/04/19 13:53 CK-MB (CK-2) 2.8 ng/mL (0-6.6) 10/04/19 07:42 Troponin I 0.198 ng/mL (< 0.028) H 10/04/19 16:06 B-Natriuretic Peptide 579.1 pg/mL (0-100) H 10/04/19 07:42 Serum Total Protein 8.3 g/dL (6.0-8.3) 01/20/20 13:53 Albumin 4.1 g/dL (3.4-4.8) 10/04/19 13:53 - EKG Interpretation EKG: initial EKG sinus tachycardia, left axis deviation with LAFB; no signs of ischemia; subsequent EKG on the floor atrial fibrillation with RVR of 130s, no signs of ischemia - Radiology Interpretation Chest x-ray Status: image reviewed by me (mild pulmonary congestion) Hospitalist H&P A/P - Plan Plan: #hypertensive emergency #new onset heart failure -grossly elevated BP on presentation despite adherence to medications -new onset heart failure -trop elevated 0.3 -> 0.2; type 2 NSTEMI -normotensive after nitro patch and restarting home antihypertensives #paroxysmal atrial fibrillation with RVR -was initially afib w/ RVR in ED, converted to sinus, then converted back on floor to afib w/ RVR on floor, rate 130s-140s -attempted labetolol IV x 2, then transitioned to amiodarone drip since patient developed chest pressure again; HR 90-100s and chest pressure improved -has been on eliquis, metoprolol, and amiodarone at home #moderate/severe mitral regurgitation has been asymptomatic until acute episode of shortness of breath; Plan: #hypertensive emergency #new onset HF - restarted home antihypertensives, currently normotensive; labetolol IVP PRN > 180/110; Echo #paroxysmal atrial fibrillation with RVR - amiodarone drip 0.5mg/min, amiodarone 200mg PO bid (goal rate 75 considering symptoms/conversion to sinus) , eliquis, telemetry #moderate/severe mitral regurgitation - symptoms likely due to arrhythmia; if after resolution of arrhythmia symptoms remain, will consult cardiology for possible intervention for symptomatic mitral valve regurgitation Patient is full code and surrogate decision maker is daughter.
[2019-10-04] MEDS ORDERED: Apixaban 5 MG TAB PO SCH ×2 (21:00→23:30)
[2019-10-04] MEDS ORDERED: Acetaminophen 325 MG TAB PO PRN (21:44)
[2019-10-04 21:49] LABS: Bacteria/HPF 2+ HPF (None Seen); Bilirubin Negative (Negative); Blood, Urine 1+ (Negative); Clarity Clear (Clear); Glucose, Urine (Dipstick) Normal (Negative); Leukocyte Negative Leu/uL (Negative); Nitrite Negative (Negative); Protein, Urine (Dipstick) 30 mg/dL (Neg-Trace); RBC/HPF 0-3 HPF (0-3); Squamous Epithelial 0-3 HPF (0-3); Urobilinogen Normal mg/dL (Less than 2); WBC/HPF 0-3 HPF (0-3)
[2019-10-05 04:32] LABS: Anion Gap 12 mmol/L (10-20); BUN (Urea Nitrogen) 27 mg/dL (9.8-20.1); Calc. Creatinine Clearance 46 mL/min (70-130); Calcium 9.2 mg/dL (7.8-10.44); Carbon Dioxide 27 mmol/L (23-31); Chloride 98 mmol/L (98-107); Estimated GFR-MDRD 43; Glucose 114 mg/dL (83-110); Magnesium 1.8 mg/dL (1.6-2.6); Potassium 3.3 mmol/L (3.5-5.1); Sodium 134 mmol/L (136-145)
[2019-10-05 04:45] LABS: #Basophils 0.1 thou/uL (0.0-0.2); #Eosinphils 0.2 thou/uL (0.0-0.7); #Lymphocytes 2.7 thou/uL (1.20-3.40); #Monocytes 1.1 thou/uL (0.11-0.59); #Neutrophils 5.7 thou/uL (1.40-6.50); %Basophils 0.5 % (0.0-1.0); %Eosinophils 1.8 % (0.0-10.0); %Lymphocytes 27.4 % (21.0-51.0); %Monocytes 11.3 % (0.0-10.0); Hemoglobin 11.9 g/dL (12.0-16.0); Mean Corpuscular HGB CONC 32.7 g/dL (32.0-36.0); Mean Corpuscular Hemoglobin 30.8 pg (27.0-31.0); Mean Corpuscular Volume 94.1 fL (78.0-98.0); Mean Platelet Volume 7.4 fL (7.4-10.4); Platelet Count 270 thou/uL (130-400); Red Blood Cell (RBC) Count 3.88 mill/uL (4.20-5.40); White Blood Cell (WBC) Count 9.7 thou/uL (4.8-10.8)
[2019-10-05] MEDS ORDERED: Potassium Chloride 20 MEQ TAB PO SCH (07:18)
[2019-10-05] MEDS ORDERED: Furosemide 20 MG TAB PO SCH (09:00)
[2019-10-05] MEDS ORDERED: Aspirin 81 mg Enteric Coated Tablet PO SCH (09:00)
[2019-10-05] MEDS ORDERED: Amiodarone 200 MG TAB PO SCH (09:00)
[2019-10-05] MEDS ORDERED: Apixaban 5 MG TAB PO SCH (09:00)
[2019-10-05] MEDS ORDERED: Losartan/Hydrochlorothiazide 100 mg/25 mg Tablet PO SCH (09:00)
[2019-10-05 15:30] VITALS: BP 138/63; TEMP 98.5
--- NOTE | 2019-10-06 15:29 | DIS ---
DATE OF ADMISSION: 10/04/2019 DATE OF DISCHARGE: 10/05/2019 HOSPITAL COURSE: Ms. Sanz is an 84-year-old female with medical history of hypertension and atrial fibrillation status post ablation in May of 2019, who presented to the hospital for palpitations and shortness of breath. The patient's symptoms started while she was sleeping and woke her up from sleep. She presented to the ED with hypertensive emergency with systolic blood pressure of higher than 200 and troponin was elevated. Therefore, she was admitted to the telemetry floor. While she presented with atrial fibrillation with RVR during her ED stay, she spontaneously converted to sinus tachycardia. Upon arrival to the telemetry floor, she again converted to atrial fibrillation with RVR. Initially, we attempted to control her rhythm and rate with IV labetalol, but she required amlodipine drip. She converted overnight to sinus rhythm with mild asymptomatic bradycardia. On the day of discharge, she was transitioned to oral amiodarone and remained in sinus bradycardia without symptoms. Prior to discharge, she ambulated throughout the floor without any dizziness, palpitations, chest pain or shortness of breath. PHYSICAL EXAMINATION: VITAL SIGNS: Unremarkable with the exception of heart rate of 50 to 60 beats per minute. GENERAL: She was in no apparent distress, alert and oriented x3. CARDIAC: Regular rhythm, mildly bradycardic. No rubs or murmurs. PULMONARY: Clear to auscultation bilaterally. No wheezes, rales, or rhonchi. No tachypnea or use of accessory muscles even during ambulation. ABDOMEN: Soft, nontender, nondistended with normal bowel sounds. NEUROLOGIC: Cranial nerves were intact. No focal weakness. No confusion. PSYCHIATRIC: Normal affect and behavior. Alert and oriented x3. ASSESSMENT AND PLAN: Ms. Sanz is an 84-year-old female, who presented with hypertensive emergency. 1. On presentation, blood pressure was grossly elevated. She had signs and symptoms of heart failure, as well as troponin elevated due to type 2 NSTEMI. Therefore, she was diagnosed with hypertensive emergency. She was initially treated with a nitroglycerin patch and immediately responded. On the second day of hospitalization, she was transitioned to oral medications and her blood pressure remained well controlled. 2. She was discharged euvolemic with no signs or symptoms of heart failure. Her acute event was confirmed with echocardiography that showed 2/3 diastolic dysfunction, but no gross heart failure after she converted to sinus rhythm. 3. Paroxysmal atrial fibrillation with RVR. 4. Was initially AFib with RVR in the ED, converted to sinus and converted back on the floor. The rate was 130s to 140s. The patient required amiodarone drip and converted back to sinus overnight. She was transitioned to oral medication and remained in sinus rhythm bradycardia. The patient was discharged with an increased dose of amiodarone from 200 mg b.i.d. to 400 mg b.i.d., as well as reduction in her long-acting metoprolol from 100 to 50 mg due to her asymptomatic bradycardia. 5. She was referred to her EP credentialer within 3 days. 6. Ieqytzso-hf-afqrus mitral regurgitation. 7. Previously diagnosed. 8. Has been asymptomatic until acute episode of shortness of breath. 9. Most likely reason for her chief complaint was diuresing out rather than valvular malfunction. Therefore, no inpatient intervention was required after arrhythmia resolved . Job ID: [id number]
--- NOTE | 2019-10-06 23:18 | PQF ---
JOBVERONICA SANG, SHENG [id number] [facility]-[id number] CLINICAL DOCUMENTATION CLARIFICATION FORM: POST DISCHARGE Addendum to original discharge summary date: ____ Late entry note date: __ DATE: 10/06/2019 ATTN: Sheng Martinez Please exercise your independent, professional judgment in responding to the clarification form. Clinical indicators are provided on the bottom of this form for your review Please check appropriate box(s): HEART FAILURE: A. TYPE: [ x ] Systolic / HFrEF [ ] Diastolic / HFpEF [ ] Combined Systolic / Diastolic B. ACUITY [ x ] Acute [ ] Acute on Chronic [ ] Chronic [ ] Other diagnosis [ ] Unable to determine In addition, please specify: Present on Admission (POA): [ x ] Yes [ ] No [ ] Unable to determine For continuity of documentation, please document condition throughout progress notes and discharge summary. Thank You. CLINICAL INDICATORS - SIGNS / SYMPTOMS / LABS Hospitalist H&P p1 10/04 Dr Gomez presented to the hospital for palpitations and shortness of breath Hospitalist H&P p1 10/04 Dr Gomez Started yesterday while she sleeping, shortness of breath woke her up and she also noticed palpitations Hospitalist H&P p1 10/04 Dr Gomez CXR showed signs of mild pulmonary edema Hospitalist H&P p1 10/04 Dr Gomez was admitted to telemetry for new onset of heart failure Discharge summary p2 10/05 Dr Gomez her acute event was confirmed with echocardiography that showed 2/3 diastolic dysfunction, but no gross heart failure after she converted to sinus rhythm RISKS: Hospitalist H&P p1 10/04 84 year-old Female Hospitalist H&P p1 10/04 HTN Hospitalist H&P p1 10/04 Atrial fibrillation Hospitalist H&P p5 10/04 NSTEMI type 2 Hospitalist H&P p5 10/04 New onset of heart failure Hospitalist H&P p5 10/04 Moderate to severe mitral regurgitation TREATMENTS: NOV 13 Nitroglycerine NOV 13 IV Labetalol NOV 13 Aly Hospitalist H&P p5 10/04 started home antihypertensives Discharge summary p2 10/05 Referred to her EP assistant county attorney within 3 days (This form is maintained as a part of the permanent medical record) 2014 [employer]. All Rights Reserved [email or web address] [not provided] [email or web address]
[2019-10-19] MEDS ORDERED: Amiodarone 200 MG TAB PO SCH (09:00)
== END 2019-10-05 18:05 | disposition home or self-care (01) | DRG 280 ==
LOC: ERS 07:05 → 2NO 12:57
PROVIDERS: ADMIT Internal Medicine; ATTEND Internal Medicine
DX: I11.0 Hypertensive heart disease with heart failure (principal); I21.A1 Myocardial infarction type 2; I50.21 Acute systolic (congestive) heart failure; I16.1 Hypertensive emergency; I48.0 Paroxysmal atrial fibrillation; I34.0 Nonrheumatic mitral (valve) insufficiency; R00.1 Bradycardia, unspecified; Z79.899 Other long term (current) drug therapy; Z79.82 Long term (current) use of aspirin; Z79.01 Long term (current) use of anticoagulants
CPT/HCPCS: 36415; 71045; 80048; 80053; 81001; 82553; 83735; 83880; 84443; 84484; 85025; 93005; 93010; 93306; 93798; 96374; J0282; J1940; J7070

== ENCOUNTER 2019-11-02 06:13 | Observation (INO) | payer MEDICARE ==
[2019-11-02 06:58] LABS: #Basophils 0.1 thou/uL (0.0-0.2); #Eosinphils 0.1 thou/uL (0.0-0.7); #Monocytes 1.2 thou/uL (0.11-0.59); #Neutrophils 5.7 thou/uL (1.40-6.50); %Basophils 0.6 % (0.0-1.0); %Eosinophils 1.5 % (0.0-10.0); %Lymphocytes 29.5 % (21.0-51.0); %Monocytes 11.8 % (0.0-10.0); %Neutrophils 56.6 % (42.0-75.0); Hemoglobin 13.6 g/dL (12.0-16.0); Mean Corpuscular HGB CONC 33.4 g/dL (32.0-36.0); Mean Corpuscular Hemoglobin 31.6 pg (27.0-31.0); Mean Corpuscular Volume 94.7 fL (78.0-98.0); Mean Platelet Volume 6.7 fL (7.4-10.4); Platelet Count 276 thou/uL (130-400); RBC Distribution Width 12.2 % (11.5-14.5); Red Blood Cell (RBC) Count 4.31 mill/uL (4.20-5.40); White Blood Cell (WBC) Count 10.1 thou/uL (4.8-10.8)
[2019-11-02 07:06] LABS: INR-International Normal Ratio 1.4; PTT 33.9 SEC (22.9-36.1); Prothrombin Time 16.9 SEC (12.0-14.7)
[2019-11-02] MEDS ORDERED: Phenylephrine HCL 10 MG/ML VIAL ONE (07:06)
[2019-11-02 07:12] LABS: Anion Gap 16 mmol/L (10-20); BUN (Urea Nitrogen) 23 mg/dL (9.8-20.1); Calc. Creatinine Clearance 45 mL/min (70-130); Calcium 10.1 mg/dL (7.8-10.44); Carbon Dioxide 27 mmol/L (23-31); Chloride 95 mmol/L (98-107); Estimated GFR-MDRD 43; Glucose 121 mg/dL (83-110); Potassium 3.5 mmol/L (3.5-5.1); Sodium 134 mmol/L (136-145)
[2019-11-02] MEDS ORDERED: Heparin (Artline) 1,500 ML ONE (07:20)
[2019-11-02] MEDS ORDERED: Heparin 10,000 UNITS/1 ML VIAL ONE ×2 (07:20→08:51)
[2019-11-02] MEDS ORDERED: Fentanyl 100 MCG/2 ML VIAL ONE ×2 (07:58→13:25)
[2019-11-02] MEDS ORDERED: SUGAMMADEX SODIUM 200 MG/2 ML VIAL ONE (07:59)
[2019-11-02] MEDS ORDERED: Isoproterenol 0.2 MG/1 ML AMP ONE (09:29)
[2019-11-02] MEDS ORDERED: Protamine Sulfate 50 MG/5 ML VIAL ONE (10:07)
[2019-11-02] MEDS ORDERED: Lidocaine 1% PF 5 ML VIAL ONE (10:23)
[2019-11-02] MEDS ORDERED: PROPOFOL 200 MG/20 ML VIAL ONE (10:23)
[2019-11-02] MEDS ORDERED: Rocuronium Bromide 10 MG/ML (10ML VIAL) ONE (10:23)
[2019-11-02] MEDS ORDERED: cloNIDine 0.1 MG TAB PO PRN (11:39)
--- NOTE | 2019-11-02 15:18 | EKG ---
Test Reason : PRE-ABLATION Blood Pressure : / mmHG Vent. Rate : 083 BPM Atrial Rate : 083 BPM P-R Int : 190 ms QRS Dur : 100 ms QT Int : 420 ms P-R-T Axes : 060 -47 042 degrees QTc Int : 493 ms Normal sinus rhythm Left anterior fascicular block Prolonged QT Abnormal ECG Confirmed by TAMICA BURK ([id number]) on 11/02/2019 3:18:18 PM Referred By: MAGDA Confirmed By:TAMICA BURK
[2019-11-02] MEDS ORDERED: Promethazine HCl 25 MG/ML VIAL IM/IV PRN (15:46)
[2019-11-02] MEDS ORDERED: Non-Formulary Medication 1 EACH PO PRN (15:46)
[2019-11-02] MEDS ORDERED: Ondansetron HCl/PF 4 MG/2 ML Vial IVP PRN (15:46)
[2019-11-02] MEDS: Potassium Chloride 20 MEQ TAB PO SCH (17:17)
[2019-11-02 17:44] VITALS: BMI 31.5
[2019-11-02] MEDS: Apixaban 5 MG TAB PO SCH (19:47)
[2019-11-02] MEDS: Amlodipine 5 MG TAB PO SCH (19:48)
[2019-11-03] MEDS ORDERED: Acetaminophen 325 MG TAB PO PRN (00:52)
[2019-11-03] MEDS ORDERED: Temazepam 15 MG CAP PO PRN (00:52)
[2019-11-03] MEDS ORDERED: Ondansetron PF 4 MG/2 ML Vial IVP PRN (00:52)
[2019-11-03] MEDS ORDERED: Bisacodyl 5 MG TAB PO PRN (00:52)
[2019-11-03] MEDS ORDERED: Silver Sulfadiazine 50 GM TUBE TOP PRN (00:52)
[2019-11-03] MEDS ORDERED: diphenhydrAMINE 25 MG CAP PO PRN (00:52)
[2019-11-03] MEDS ORDERED: Nitroglycerin 0.4 MG TAB (25 Tab Bottle) SL PRN (00:52)
[2019-11-03] MEDS ORDERED: Mag-Al 1200 mg/1200 mg/30 ML UDCUP PO PRN (00:52)
[2019-11-03] MEDS ORDERED: traMADol HCl 50 MG TAB PO PRN (00:52)
[2019-11-03] MEDS ORDERED: Bisacodyl 10 MG SUPP PR PRN (00:52)
[2019-11-03 08:15] VITALS: TEMP 98.3
[2019-11-03] MEDS ORDERED: Losartan/Hydrochlorothiazide 100 mg/25 mg Tablet PO SCH (09:00)
[2019-11-03] MEDS ORDERED: Aspirin 81 mg Enteric Coated Tablet PO SCH (09:00)
[2019-11-03] MEDS: Apixaban 5 MG TAB PO SCH (09:26)
[2019-11-03] MEDS: Potassium Chloride 20 MEQ TAB PO SCH (09:26)
[2019-11-03] MEDS: Amlodipine 5 MG TAB PO SCH (09:27)
--- NOTE | 2019-11-03 10:48 | OP ---
DATE OF PROCEDURE: 11/02/2019 PROCEDURE PERFORMED: Radiofrequency ablation for atrial fibrillation. PREOPERATIVE DIAGNOSES: Atrial fibrillation and flutter. DESCRIPTION OF PROCEDURE: The patient came to the EP lab in the postabsorptive state. Informed consent was obtained. A time-out was called. The patient was sedated by member of the anesthesia staff. Once the patient was adequately sedated, the right and left femoral regions and the right internal jugular region were prepped and draped in usual sterile fashion. Using a modified Seldinger technique and with ultrasound-guided access, access was obtained x2 in the right femoral vein, x1 in the left femoral vein, and x1 in the right internal jugular vein. An intracardiac echo catheter was advanced from the left femoral vein and placed into the right atrium for intraprocedural monitoring and guidance. A 20-pole duo-Deca catheter was advanced from the right internal jugular catheter with the distal 10 poles placed into the coronary sinus for left atrial pacing and recording, proximal 10 poles were along the cole terminalis area. Intravenous heparin was given, and transseptal puncture was performed x2 after exchanging the right femoral vein sheath to long transseptal sheath. This was done under ice guidance. A 10-pole 20 mm circular mapping catheter was placed in the left atrium, and a 3D electroanatomical map was created of the left atrium. It was noted that there was severe scarring in the left atrium with lack of significant pulmonary vein signals and several of the pulmonary veins. Radiofrequency ablation was delivered in the antrum of the pulmonary veins with a target wattage of approximately 40 gunter which resulted in isolation of pulmonary veins, ablation along the coronary sinus endocardially and ablation without isolation of the left atrial appendage. Total ablation time was 38 minutes. There was delay in the left atrial appendage after ablation. Isoproterenol was given at without any evidence of extrapulmonary triggers. During the ablation, the patient went into various atrial flutters, which also terminated with ablation. The esophagus was monitored with a single point temperature probe, which was manipulated during the procedure by anesthesia. After the ablation was completed, the catheter was withdrawn into the right atrium. His recording was obtained. The HV interval was 42 milliseconds. Left ventricular pacing did not demonstrate any VA conduction and left atrial pacing did show that the isthmus was blocked from the previous atrial flutter ablation procedure. Catheters were removed. Sheaths were removed and hemostasis was obtained with manual pressure with placement of a Vascade sheath as well as manual pressure. The patient tolerated the procedure well, was discharged from the EP lab in stable condition. POSTOPERATIVE DIAGNOSIS: Atrial fibrillation. PROCEDURE PERFORMED: Ablation for atrial fibrillation. CONCLUSIONS: Successful radiofrequency ablation for atrial fibrillation and flutter. RECOMMENDATIONS: The patient will continue on anticoagulation indefinitely and will follow up with Dr. Joshua in approximately 6 to 8 weeks. Job ID: [id number]
[2019-11-03 11:54] VITALS: BP 130/61
--- NOTE | 2019-11-04 04:15 | DIS ---
DATE OF ADMISSION: 11/02/2019 DATE OF DISCHARGE: 11/03/2019 DIAGNOSIS: Persistent atrial fibrillation, flutter. HISTORY OF PRESENT ILLNESS: Ms. Sanz is a delightful 84-year-old woman with a history of persistent atrial arrhythmias status post CTI ablation in the past, but also was noted to have multiple left atrial circuits seen during the EP study. She had been on amiodarone for antiarrhythmic therapy and suppression of her atrial fibrillation, but did not tolerate this medication well and was having dizziness, prompting a dose reduction. She had recurrence of her arrhythmia refractory to her amiodarone and had severe shortness of breath and borderline congestive heart failure symptoms without recurrence. Long-term treatment options included either continued antiarrhythmic therapy with amiodarone versus ablative therapy. She was admitted for an elective outpatient ablation and was appropriately anticoagulated for at least 30 days on Eliquis 5 mg b.i.d. prior to her procedure. Total ablation time was 38 minutes. Severe scarring was noted in the left atrium and there were no significant pulmonary vein signals. Radiofrequency ablation was delivered in the antrum of the pulmonary veins resulting in isolation of pulmonary veins. Ablation along the coronary sinus endocardially and ablation without isolation of the left atrial appendage. There was a significant delay in the left atrial appendage post ablation. No accessory pathway was found. The right atrial isthmus remained blocked from a previous atrial flutter ablative procedure. COMPLICATIONS: None. RECOMMENDATIONS: Continue anticoagulation indefinitely and follow up in 6 to 8 weeks. SUBJECTIVE: Ms. Sanz feels well. She denies any heart racing, palpitations, syncope, near syncope, stroke or stroke-like symptoms, bleeding or pain at her groin sites. She does have some very mild chest discomfort that is provoked by deep inspiration and she did take Tylenol overnight, which resolved this pain. REVIEW OF SYSTEMS: Eight-point review of systems is negative except that listed above in the HPI. OBJECTIVE: VITAL SIGNS: Temperature 98.3, pulse 87, blood pressure 139/76, respirations 14, and oxygen is 97% on room air. GENERAL: The patient is alert and oriented. Speech is clear. Affect is appropriate. She is in no apparent distress, sitting upright in the chair during the time of exam. NECK: Supple without jugular venous distention. There is no lymphadenopathy. Trachea is midline. LUNGS: Clear to auscultation bilaterally without wheezes, crackles, or rhonchi. Respirations are even and unlabored with good bilateral excursion. HEART: Rate is regularly regular, slightly rapid with crisp S1 and S2. PMI is nondisplaced. ABDOMEN: Soft and nontender without palpable masses. EXTREMITIES: Warm and dry to touch without clubbing, cyanosis, or edema. NEUROLOGIC: Nonfocal. Gait is stable. Bilateral groin sites and her right EJ site are without signs of bleeding complication. No hematoma. DISCHARGE MEDICATIONS: Resuming home medications of, 1. K-Dur 20 mEq b.i.d. 2. Pantoprazole 40 mg daily. 3. Toprol-XL 50 mg daily. 4. Losartan/hydrochlorothiazide 100-25 mg daily. 5. Eliquis 5 mg b.i.d. 6. Norvasc 5 mg b.i.d. 7. Aspirin 81 mg daily. 8. Catapres 0.1 mg p.o. b.i.d. p.r.n. systolic greater than 180. New prescriptions provided for, 1. Carafate 1 g q.i.d. x2 weeks. 2. Lasix 40 mg daily p.r.n. fluid retention postablation to be taken with 20 mEq of potassium. DISCHARGE INSTRUCTIONS: Follow up in 6 weeks or sooner if symptoms dictate. No lifting greater than 10 pounds or soaking baths for 7 days, then she may resume activity gradually and as tolerated. Contact [facility] with any postablation concerns. Monitor blood pressure closely as it had been significantly elevated preablation and contact her horticultural farm manager with any blood pressure related concerns. Ideally, her blood pressure will remain less than 140/90. CONDITION ON DISCHARGE: Stable. Job ID: [id number]
--- NOTE | 2019-11-04 12:30 | EKG ---
Test Reason : Blood Pressure : / mmHG Vent. Rate : 094 BPM Atrial Rate : 094 BPM P-R Int : 216 ms QRS Dur : 100 ms QT Int : 396 ms P-R-T Axes : 065 -39 083 degrees QTc Int : 495 ms Sinus rhythm with 1st degree A-V block Non-specific intra-ventricular conduction delay Left axis deviation Prolonged QT Abnormal ECG Confirmed by TAMICA BURK ([id number]) on 11/04/2019 12:30:37 PM Referred By: MAGDA Confirmed By:TAMICA BURK
== END 2019-11-03 13:55 | disposition home or self-care (01) ==
LOC: CCL 06:13 → 2SW 14:18
PROVIDERS: ADMIT Specialist; ATTEND Specialist
PROC: 02583ZZ Destruction of Conduction Mechanism, Percutaneous Approach (ICD-10-PCS; principal; 2019-11-02)
DX: I48.19 Other persistent atrial fibrillation (principal); I48.92 Unspecified atrial flutter; I10 Essential (primary) hypertension; K21.9 Gastro-esophageal reflux disease without esophagitis; Z79.01 Long term (current) use of anticoagulants; Z79.82 Long term (current) use of aspirin; Z79.899 Other long term (current) drug therapy; Z88.1 Allergy status to other antibiotic agents; Z88.8 Allergy status to other drugs, medicaments and biological substances
CPT/HCPCS: 76942; 80048; 85025; 85347 ×2; 85610; 85730; 93005 ×2; 93613; 93622; 93623; 93656; 93662; C1731; C1732; C1759; C1769; 93010; G0378; J1644; J2001; J2370; J2704; J2720; J3010

== ENCOUNTER 2020-02-16 06:17 | Outpatient (CLI) | payer MEDICARE, OTHER ==
[2020-02-16 12:06] LABS: Hemoglobin 13.7 g/dL (12.0-16.0); Mean Corpuscular HGB CONC 32.3 g/dL (32.0-36.0); Mean Corpuscular Hemoglobin 31.4 pg (27.0-31.0); Mean Corpuscular Volume 97.3 fL (78.0-98.0); Mean Platelet Volume 7.3 fL (7.4-10.4); Platelet Count 283 thou/uL (130-400); RBC Distribution Width 12.4 % (11.5-14.5); Red Blood Cell (RBC) Count 4.38 mill/uL (4.20-5.40); White Blood Cell (WBC) Count 10.8 thou/uL (4.8-10.8)
[2020-02-16 12:24] LABS: Anion Gap 13 mmol/L (10-20); BUN (Urea Nitrogen) 28 mg/dL (9.8-20.1); Calc. Creatinine Clearance 0 mL/min (70-130); Calcium 9.8 mg/dL (7.8-10.44); Carbon Dioxide 26 mmol/L (23-31); Chloride 100 mmol/L (98-107); Estimated GFR-MDRD 40; Glucose 90 mg/dL (83-110); INR-International Normal Ratio 1.3; PTT 33.9 sec (22.9-36.1); Potassium 4.2 mmol/L (3.5-5.1); Prothrombin Time 15.9 sec (12.0-14.7); Sodium 135 mmol/L (136-145)
[2020-02-16 18:31] LABS: SARS-CoV-2 MS2 Positive; SARS-CoV-2 N Gene Negative; SARS-CoV-2 S Gene Negative; SARS-CoV-2 orf1ab Negative
== END 2020-02-16 06:18 | disposition home or self-care (01) ==
LOC: LABBT 06:17
PROVIDERS: ATTEND Internal Medicine Cardiovascular Disease
DX: Z01.818 Encounter for other preprocedural examination (principal); Z11.59 Encounter for screening for other viral diseases; I48.91 Unspecified atrial fibrillation
CPT/HCPCS: 80048; 85027; 85610; 85730; 93005; U0003; 87635; 93010

== ENCOUNTER 2020-02-18 06:12 | Day surgery (SDC) | payer MEDICARE ==
[2020-02-16 09:36] VITALS: BMI 30.1
[2020-02-18] MEDS ORDERED: PROPOFOL 20 ML ONE (07:20)
--- NOTE | 2020-02-18 09:53 | OP ---
DATE OF PROCEDURE: 02/18/2020 PROCEDURE PERFORMED: External cardioversion. REASON FOR PROCEDURE: Ms. Sanz is an 84-year-old woman with history of a pulmonary venous isolation procedure in 10/[address] Hernandez, with early recurrence of the atrial flutter noted. She has been loaded with amiodarone and she is here for a planned cardioversion. She also has history of bradyarrhythmias. She has been adequately anticoagulated with Eliquis without fail. DESCRIPTION OF PROCEDURE: The patient received propofol by Anesthesia specialist. After adequate level of sedation achieved, a synchronized 100-joule shock promptly converted the patient back to sinus rhythm with rate of 70 beats per minute. CONCLUSION: Successful cardioversion. PLAN: Continue Eliquis and short-term amiodarone. Monitor for bradyarrhythmias or recurrence. Job ID: [id number]
== END 2020-02-18 10:20 | disposition home or self-care (01) ==
LOC: CCL 06:12
PROVIDERS: ATTEND Internal Medicine Cardiovascular Disease
PROC: 5A2204Z Restoration of Cardiac Rhythm, Single (ICD-10-PCS; principal; 2020-02-18)
DX: I48.19 Other persistent atrial fibrillation (principal); I48.3 Typical atrial flutter; I10 Essential (primary) hypertension; K21.9 Gastro-esophageal reflux disease without esophagitis; Z79.01 Long term (current) use of anticoagulants; Z79.899 Other long term (current) drug therapy; Z88.1 Allergy status to other antibiotic agents; Z88.8 Allergy status to other drugs, medicaments and biological substances
CPT/HCPCS: 92960; 93005; 93010; J2704

== ENCOUNTER 2020-02-20 03:00 | Inpatient (IN) | payer MEDICARE ==
[2020-02-20] MEDS ORDERED: Aspirin Chewable 81 MG TAB ONE (03:26)
[2020-02-20 03:52] LABS: #Basophils 0.1 thou/uL (0.0-0.2); #Eosinphils 0.1 thou/uL (0.0-0.7); #Lymphocytes 1.6 thou/uL (1.20-3.40); #Monocytes 1.8 thou/uL (0.11-0.59); #Neutrophils 15.9 thou/uL (1.40-6.50); %Basophils 0.4 % (0.0-1.0); %Eosinophils 0.5 % (0.0-10.0); %Lymphocytes 8.3 % (21.0-51.0); %Monocytes 9.1 % (0.0-10.0); %Neutrophils 81.8 % (42.0-75.0); Hemoglobin 13.2 g/dL (12.0-16.0); Mean Corpuscular Hemoglobin 31.8 pg (27.0-31.0); Mean Corpuscular Volume 96.6 fL (78.0-98.0); Mean Platelet Volume 7.3 fL (7.4-10.4); Platelet Count 265 thou/uL (130-400); RBC Distribution Width 12.3 % (11.5-14.5); Red Blood Cell (RBC) Count 4.15 mill/uL (4.20-5.40); White Blood Cell (WBC) Count 19.4 thou/uL (4.8-10.8)
[2020-02-20] MEDS ORDERED: Furosemide 40 MG/4 ML VIAL ONE (03:57)
[2020-02-20 04:11] LABS: ALT (SGPT) 21 U/L (8-55); AST (SGOT) 19 U/L (5-34); Albumin 4.1 g/dL (3.4-4.8); Alkaline Phosphatase 86 U/L (40-110); Anion Gap 13 mmol/L (10-20); BUN (Urea Nitrogen) 27 mg/dL (9.8-20.1); Bilirubin, Total 0.5 mg/dL (0.2-1.2); Calc. Creatinine Clearance 0 mL/min (70-130); Calcium 9.1 mg/dL (7.8-10.44); Carbon Dioxide 25 mmol/L (23-31); Chloride 100 mmol/L (98-107); Estimated GFR-MDRD 36; Globulin 3.7 g/dL (2.4-3.5); Glucose 183 mg/dL (83-110); Potassium 3.9 mmol/L (3.5-5.1); Protein, Total 7.8 g/dL (6.0-8.3); Sodium 134 mmol/L (136-145)
[2020-02-20 05:41] VITALS: BMI 29.9
[2020-02-20] MEDS ORDERED: Acetaminophen 325 MG TAB PO PRN ×2 (06:18→06:50)
[2020-02-20] MEDS ORDERED: Ondansetron PF 4 MG/2 ML Vial IVP PRN (06:50)
[2020-02-20] MEDS ORDERED: Guaifenesin DM 100-10/5 ML UDCUP PO PRN (06:50)
[2020-02-20] MEDS ORDERED: hydrALAZINE 20 MG/ML VIAL SLOW IVP PRN (06:50)
[2020-02-20] MEDS ORDERED: Promethazine HCl 12.5 MG in Sodium Chloride 0.9% 50 ML IVPB PRN (06:50)
[2020-02-20] MEDS ORDERED: Labetalol HCl 100 MG/20 ML VIAL SLOW IVP PRN (06:50)
[2020-02-20] MEDS ORDERED: Morphine 2 MG/ML SYRINGE SLOW IVP PRN (06:50)
[2020-02-20] MEDS ORDERED: HYDROcodone/Acetaminophen 5/325 mg Tablet PO PRN (06:50)
[2020-02-20] MEDS ORDERED: cloNIDine 0.1 MG TAB PO PRN (06:50)
--- NOTE | 2020-02-20 06:56 | PDOC.HHP ---
Hospitalist HPI - History of Present Illness Chest pain, shortness of breath History of Present Illness: 84F with PMH atrial flutter, HTN who presents with shortness of breath, chest pain x 1 day. started around 8am, reports orthopenia, comfortable and no distress. EMs called, O2 sat in 80s, applied CPAP with improvement. She had cardioversion 2 days ago, sees Dr Roldan and Dr Joshua. In ED, CXR w/ pulmonary edema, given lasix with improvement, admitted for furter workup.was swabbed for covid a few days ago and negative. Hospitalist ROS - Review of Systems Constitutional: denies: fever, chills, sweats, weakness, malaise, other Eyes: denies: pain, vision change, conjunctivae inflammation, eyelid inflammation, redness, other ENT: denies: ear pain, ear discharge, nose pain, nose discharge, nose congestion , mouth pain, mouth swelling, throat pain, throat swelling, other Respiratory: reports: shortness of breath, SOB with excertion. denies: cough, dry, hemoptysis, pleuritic pain, sputum, wheezing, other Cardiovascular: reports: chest pain, orthopnea. denies: palpitations, paroxysmal noc. dyspnea, edema, light headedness, other Gastrointestinal: denies: nausea, vomiting, abdominal pain, diarrhea, constipation, melena, hematochezia, other Genitourinary: denies: dysuria, frequency, incontinence, hematuria, retention, other Musculoskeletal: denies: neck pain, shoulder pain, arm pain, back pain, hand pain, leg pain, foot pain, other Skin: denies: rash, lesions, shadi, bruising, other Neurological: denies: weakness, numbness, incoordination, change in speech, confusion, seizures, other All other systems reviewed; all pertinent +/- noted in HPI/Subj - Medication Medications: Active Medications Generic Name Dose Route Start Last Admin Trade Name Freq PRN Reason Stop Dose Admin Acetaminophen 650 mg 02/20/20 06:18 02/20/20 06:36 Tylenol PO 650 mg Q4H PRN Administration Headache/Fever or Pain Hospitalist History - Past Medical History Heme/Onc: reports: no pertinent history Hepatobiliary: reports: no pertinent history Psych: reports: no pertinent history Musculoskeletal: reports: no pertinent history Rheumatologic: reports: no pertinent history Renal/: reports: no pertinent history Endocrine: reports: no pertinent history Dermatology: reports: no pertinent history Other Medical History: aflutter, htn - Past Surgical History Past Surgical History: reports: no pertinent history Other Surgical History: ANAL FISSURE SX, Surgical history of cholecystectomy, cardiac ablation on June 11, cardioversion 02/18/20. - Family History Family History: reports: no pertinent history - Social History Smoking Status: Never smoker Alcohol: reports: None Drugs: reports: none - Exam General Appearance: NAD, awake alert Eye: PERRL, anicteric sclera ENT: normocephalic atraumatic, no oropharyngeal lesions, moist mucosa Neck: supple, symmetric, no JVD, no thyromegaly, no lymphadenopathy, no carotid bruit Heart: RRR, no murmur, no gallops, no rubs, normal peripheral pulses Respiratory: CTAB, no wheezes, no rales, no ronchi, normal chest expansion, no tachypnea, normal percussion Gastrointestinal: soft, non-tender, non-distended, normal bowel sounds, no palpable masses, no hepatomegaly, no splenomegaly, no bruit Extremities: no cyanosis, no clubbing, no edema Skin: normal turgor, no lesions, no rashes Neurological: cranial nerve grossly intact, normal sensation to touch, no weakness, no focal deficits, no new deficit Musculoskeletal: normal tone, normal strength, no muscle wasting Psychiatric: normal affect, normal behavior, A&O x 3 Hospitalist Results - Labs Result Diagrams: 02/20/20 03:41 02/20/20 03:41 Lab results: WBC 19.4 thou/uL (4.8-10.8) H 02/20/20 03:41 Hgb 13.2 g/dL (12.0-16.0) 02/20/20 03:41 Hct 40.0 % (36.0-47.0) 02/20/20 03:41 MCV 96.6 fL (78.0-98.0) 02/20/20 03:41 Plt Count 265 thou/uL (130-400) 02/20/20 03:41 Neutrophils % 81.8 % (42.0-75.0) H 02/20/20 03:41 Sodium 134 mmol/L (136-145) L 02/20/20 03:41 Potassium 3.9 mmol/L (3.5-5.1) 02/20/20 03:41 Chloride 100 mmol/L (98-107) 02/20/20 03:41 Carbon Dioxide 25 mmol/L (23-31) 02/20/20 03:41 BUN 27 mg/dL (9.8-20.1) H 02/20/20 03:41 Creatinine 1.40 mg/dL (0.6-1.1) H 02/20/20 03:41 Glucose 183 mg/dL (83-110) H 02/20/20 03:41 Calcium 9.1 mg/dL (7.8-10.44) 02/20/20 03:41 Total Bilirubin 0.5 mg/dL (0.2-1.2) 02/20/20 03:41 AST 19 U/L (5-34) 02/20/20 03:41 ALT 21 U/L (8-55) 02/20/20 03:41 Alkaline Phosphatase 86 U/L (40-110) 02/20/20 03:41 Troponin I Less than 0.010 ng/mL (< 0.028) 02/20/20 03:41 B-Natriuretic Peptide 161.5 pg/mL (0-100) H 02/20/20 03:41 Serum Total Protein 7.8 g/dL (6.0-8.3) 02/20/20 03:41 Albumin 4.1 g/dL (3.4-4.8) 02/20/20 03:41 Additional comment: VITAL SIGNS [place] Feb 20, 2020 04:02 DEIS Aaron [place] BP: 135/69 MAP: 91 Pulse: 86 Resp: 19 Temp: 98.3 (Oral) Pain: 2 O2 sat: 96 6L Time: 02/20/2020 04:02. VITAL SIGNS [place] Feb 20, 2020 04:53 EDIS Aaron [place] BP: 142/78 MAP: 99 Pulse: 81 Resp: 20 Temp: 98.3 (Oral) Pain: 1 O2 sat: 95 6L Time: 02/20/2020 04:53. - EKG Interpretation EKbpm, lafb, no acute ST changes, sinus Hospitalist H&P A/P - Plan Plan: 84F admitted for: # chest pain, hypoxia # history of atrial flutter suspect due to CHF exacerbation - admit to telemetry - trend enzymes - consult Dr Roldan - continue home meds - I/Os - IV lasix - note recent cardioversion, consult Dr Joshua if needed - follow up CXR report # NSVT - rare NSVT 5 beats or so, per ED improved once o2 improved, trend K and Mg and replete as needed # HTN - continue home meds, PRNs in chart # leukocytosis - no obvious infection, monitor for signs, had recent negative covid swab.
[2020-02-20 07:38] LABS: CKMB 2.2 ng/mL (0-6.6)
[2020-02-20] MEDS ORDERED: Enoxaparin Sodium 40 MG/0.4 ML SYRINGE SC SCH (09:00)
[2020-02-20 09:52] LABS: Hemoglobin 11.8 g/dL (12.0-16.0); Platelet Count 240 thou/uL (130-400)
[2020-02-20] MEDS: Famotidine 20 MG TAB PO SCH (10:05)
[2020-02-20] MEDS: Amlodipine 5 MG TAB PO SCH (10:05)
[2020-02-20] MEDS: Amiodarone 200 MG TAB PO SCH (10:05)
[2020-02-20] MEDS: Polyethylene Glycol 3350 17 GM Packet PO SCH (10:06)
[2020-02-20] MEDS: Apixaban 5 MG TAB PO SCH ×2 (10:06→20:35)
--- NOTE | 2020-02-20 12:18 | RAD ---
PORTABLE CHEST: INDICATIONS: Chest pain. Shortness of breath. COMPARISON: 10/04/19 FINDINGS: Mild cardiomegaly. Vascular markings upper normal. Interstitial markings are mildly prominent, some o f which is due to exposure. Suggestion of hazy infiltrate in the right lower lung. No confluent conso lidation and no significant effusion. Followup recommended. POS: AGW
[2020-02-20 13:29] LABS: Troponin I 0.021 ng/mL (< 0.028)
[2020-02-20] MEDS ORDERED: Sodium Chloride 0.9% 10 ML ONE (14:40)
[2020-02-20] MEDS: Furosemide 40 MG/4 ML VIAL SLOW IVP SCH (15:21)
--- NOTE | 2020-02-20 15:35 | PDOC.HOSPP ---
- Subjective Encounter Date: 02/20/20 Encounter Time: 11:45 Subjective: pt up in bed feels well. she walked with PT - Objective Vital Signs & Weight: Vital Signs (12 hours) Temp Pulse Pulse Pulse Resp BP BP 02/20/20 12:00 98.6 F 69 16 02/20/20 10:35 68 70 131/75 02/20/20 10:05 71 139/60 02/20/20 08:00 02/20/20 07:51 98.7 F 71 18 02/20/20 06:13 75 02/20/20 05:36 98.4 F 77 22 H BP BP Pulse Ox Pulse Ox Pulse Ox Pulse Ox 02/20/20 12:00 140/65 92 L 02/20/20 10:35 140/65 94 L 90 L 93 L 02/20/20 10:05 02/20/20 08:00 94 L 02/20/20 07:51 139/60 94 L 02/20/20 06:13 94 L 02/20/20 05:36 127/83 97 Weight Weight 169 lb 1.6 oz I&O: 02/19/20 02/20/20 02/21/20 06:59 06:59 06:59 Output Total 900 800 Balance -900 -800 Result Diagrams: 02/20/20 09:44 02/20/20 09:44 Hospitalist ROS - Review of Systems Cardiovascular: denies: chest pain, palpitations, orthopnea, paroxysmal noc. dyspnea, edema, light headedness, other Gastrointestinal: denies: nausea, vomiting, abdominal pain, diarrhea, constipation, melena, hematochezia, other Genitourinary: denies: dysuria, frequency, incontinence, hematuria, retention, other - Medication Medications: Active Medications Generic Name Dose Route Start Last Admin Trade Name Freq PRN Reason Stop Dose Admin Amiodarone HCl 200 mg 02/20/20 09:00 02/20/20 10:05 Cordarone PO 200 mg DAILY EPI Administration Amlodipine Besylate 5 mg 02/20/20 09:00 02/20/20 10:05 Norvasc PO 5 mg DAILY EPI Administration Apixaban 5 mg 02/20/20 09:00 02/20/20 10:06 Eliquis PO 5 mg BID EPI Administration Famotidine 20 mg 02/20/20 09:00 02/20/20 10:05 Pepcid PO 20 mg DAILY EPI Administration Metoprolol Succinate 25 mg 02/20/20 09:00 02/20/20 10:05 Toprol Xl PO 25 mg DAILY EPI Administration Pantoprazole Sodium 40 mg 02/20/20 09:00 02/20/20 10:05 Protonix PO 40 mg DAILY EPI Administration Polyethylene Glycol 17 gm 02/20/20 09:00 02/20/20 10:06 Miralax PO 17 gm DAILY EPI Administration - Exam Neck: negative: supple, symmetric, no JVD, no thyromegaly, no lymphadenopathy, no carotid bruit, JVD Heart: negative: RRR, no murmur, no gallops, no rubs, normal peripheral pulses, irregular, diminshed peripheral pulses, murmur present, II/IV, III/IV Respiratory: rales. negative: CTAB, no wheezes, no rales, no ronchi, normal chest expansion, no tachypnea, normal percussion, rhonchi, tachypneic, wheezes Gastrointestinal: negative: soft, non-tender, non-distended, normal bowel sounds , no palpable masses, no hepatomegaly, no splenomegaly, no bruit, no guarding, no rigidity, tender to palpation, distended, diminished bowl sounds, voluntary guarding Hosp A/P (1) Acute respiratory failure with hypoxia Code(s): J96.01 - ACUTE RESPIRATORY FAILURE WITH HYPOXIA Status: Acute (2) Afib Code(s): I48.91 - UNSPECIFIED ATRIAL FIBRILLATION Status: Acute Qualifiers: Atrial fibrillation type: paroxysmal Qualified Code(s): I48.0 - Paroxysmal atrial fibrillation (3) HTN (hypertension) Code(s): I10 - ESSENTIAL (PRIMARY) HYPERTENSION Status: Chronic Qualifiers: Hypertension type: essential hypertension Qualified Code(s): I10 - Essential (primary) hypertension (4) Diastolic heart failure Code(s): I50.30 - UNSPECIFIED DIASTOLIC (CONGESTIVE) HEART FAILURE Status: Acute Qualifiers: Heart failure chronicity: acute on chronic Qualified Code(s): I50.33 - Acute on chronic diastolic (congestive) heart failure - Plan pt's daughter states that this happened to her last time she underwent cardioversion. pt's cxr appears volume overload. will continue lasix for now. cardiology is consulted. I asked the pt if she had chest pain and she said no chest pain only sob when she was on her way back from the bathroom.
[2020-02-20 19:17] LABS: Troponin I 0.018 ng/mL (< 0.028)
--- NOTE | 2020-02-20 23:21 | CON ---
DATE OF CONSULTATION: HISTORY: Yvette Sanz is a pleasant 84-year-old white female, who was initially evaluated by Dr. Roldan in May 2019 for atrial fibrillation and fast ventricular response. She apparently did not tolerate amiodarone in the past with dizziness. However, she recently has been restarted on this. Her last ablation was in October 2019. On February 18, 2020, she underwent electrical cardioversion back to sinus rhythm by Dr. Joshua. He did mention in his note that she has had some issues with bradycardia in the past. She then went home. Early on the morning of February 19, she got up to go to the bathroom and when she got back to bed, felt acutely short of breath. Paramedics were called and they called helicopter to bring her from [place] to [facility]. She was given intravenous Lasix and had improvement in her symptoms. Chest x-ray was consistent with increased pulmonary vascularity. She denies any chest discomfort. PAST MEDICAL HISTORY: Hypertension, atrial arrhythmias. MEDICATIONS: Amiodarone 200 daily, Eliquis 5 mg b.i.d., amlodipine 5 mg daily, metoprolol 25 daily, Protonix 40 daily, potassium 20 mEq daily. ALLERGIES: ERYTHROMYCIN AND PREDNISONE. SOCIAL HISTORY: She does not smoke or drink. PHYSICAL EXAMINATION: VITAL SIGNS: Blood pressure 146/68, pulse 66. HEENT: PERRL. NECK: Supple. CHEST: Clear. CARDIAC: S1 and S2 normal without any S3, S4, or murmurs. ABDOMEN: Normal bowel sounds without tenderness. EXTREMITIES: Revealed no clubbing, cyanosis, or edema. NEUROLOGIC: Grossly intact. LABORATORY DATA: EKG reveals normal sinus rhythm with evidence for septal infarction. The last echo I can find was from September 2019 in the hospital. Ejection fraction was 55% to 60% with a moderate to severely dilated left atrium, mild tricuspid regurgitation. White count 19,400, hemoglobin 13.2, hematocrit 40.0, platelets 265,000. INR 1.3. Troponin I is up to 0.31. BNP 161.5. Sodium 134, potassium 3.9, chloride 100, carbon dioxide 25, BUN 27, and creatinine 1.40. IMPRESSION: 1. Probable acute diastolic heart failure. She had ejection fraction of 55% to 60% on echo in September 2019. 2. Status post recent cardioversion 2 days ago. 3. History of atrial fibrillation, atrial flutter with multiple ablations and cardioversions. 4. Hypertension. 5. Gastroesophageal reflux disease. PLAN: Echocardiogram will be performed to reassess left ventricular function. She currently is on intravenous Lasix for diuresis. We will follow the patient with you. Job ID: [id number]
[2020-02-21 04:38] LABS: #Eosinphils 0.2 thou/uL (0.0-0.7); #Lymphocytes 2.5 thou/uL (1.20-3.40); #Monocytes 1.1 thou/uL (0.11-0.59); #Neutrophils 5.8 thou/uL (1.40-6.50); %Basophils 0.5 % (0.0-1.0); %Eosinophils 2.5 % (0.0-10.0); %Lymphocytes 25.9 % (21.0-51.0); %Monocytes 11.8 % (0.0-10.0); %Neutrophils 59.4 % (42.0-75.0); Hemoglobin 12.3 g/dL (12.0-16.0); Mean Corpuscular HGB CONC 34.8 g/dL (32.0-36.0); Mean Corpuscular Hemoglobin 33.2 pg (27.0-31.0); Mean Corpuscular Volume 95.2 fL (78.0-98.0); Mean Platelet Volume 7.3 fL (7.4-10.4); Platelet Count 235 thou/uL (130-400); RBC Distribution Width 12.2 % (11.5-14.5); Red Blood Cell (RBC) Count 3.72 mill/uL (4.20-5.40); White Blood Cell (WBC) Count 9.7 thou/uL (4.8-10.8)
[2020-02-21 05:03] LABS: Anion Gap 12 mmol/L (10-20); BUN (Urea Nitrogen) 25 mg/dL (9.8-20.1); Calc. Creatinine Clearance 45 mL/min (70-130); Calcium 9.2 mg/dL (7.8-10.44); Carbon Dioxide 31 mmol/L (23-31); Chloride 96 mmol/L (98-107); Estimated GFR-MDRD 44; Glucose 94 mg/dL (83-110); Magnesium 1.9 mg/dL (1.6-2.6); Sodium 136 mmol/L (136-145)
[2020-02-21] MEDS: Furosemide 40 MG/4 ML VIAL SLOW IVP SCH ×2 (06:10→13:57)
[2020-02-21] MEDS: Potassium Chloride 20 MEQ TAB PO SCH ×2 (08:17→17:39)
[2020-02-21] MEDS: Polyethylene Glycol 3350 17 GM Packet PO SCH (08:17)
[2020-02-21] MEDS: Amiodarone 200 MG TAB PO SCH (08:18)
[2020-02-21] MEDS: Amlodipine 5 MG TAB PO SCH (08:18)
[2020-02-21] MEDS: Apixaban 5 MG TAB PO SCH ×2 (08:18→20:30)
[2020-02-21] MEDS: Famotidine 20 MG TAB PO SCH (08:18)
--- NOTE | 2020-02-21 09:30 | PRG ---
DATE OF SERVICE: 02/21/2020 SUBJECTIVE: Ms. Sanz is doing well today. Yesterday morning, she is admitted with acute onset of severe pulmonary edema. She has been diuresing and doing well. No chest pain or pressure. OBJECTIVE: VITAL SIGNS: Blood pressure 140/70, pulse is 56 with sinus. LUNGS: Clear. CARDIAC: Normal S1. Normal S2. ABDOMEN: Soft and nontender. EXTREMITIES: No edema. ASSESSMENT: 1. Status post recent cardioversion for atrial flutter. 2. Acute onset of diastolic heart failure. PLAN: 1. Repeat chest x-ray tomorrow. 2. Replete potassium. She is hypokalemic. 3. Repeat echocardiogram. If she is out of congestive heart failure, consideration for stress testing tomorrow. Job ID: [id number]
--- NOTE | 2020-02-21 15:49 | PDOC.HOSPP ---
- Subjective Encounter Date: 02/21/20 Encounter Time: 15:47 Subjective: Ms. Sanz was seen today in follow-up of new diastolic heart failure. She was seen up walking in the halls. She denies feeling short of breath, no chest pain. - Objective Vital Signs & Weight: Vital Signs (12 hours) Temp Pulse Pulse Resp BP BP Pulse Ox 02/21/20 15:09 99.2 F 56 L 18 129/58 L 96 02/21/20 11:10 98.3 F 57 L 18 132/60 97 02/21/20 10:42 65 145/67 H 02/21/20 07:13 99.6 F 56 L 18 141/72 H 92 L Weight Weight 166 lb 4.8 oz I&O: 02/20/20 02/21/20 02/22/20 06:59 06:59 06:59 Intake Total 850 Output Total 900 2700 Balance -900 -1850 Result Diagrams: 02/21/20 04:16 02/21/20 04:15 Hospitalist ROS - Medication Medications: Active Medications Generic Name Dose Route Start Last Admin Trade Name Junoq PRN Reason Stop Dose Admin Amiodarone HCl 200 mg 02/20/20 09:00 02/21/20 08:18 Cordarone PO 200 mg DAILY EPI Administration Amlodipine Besylate 5 mg 02/20/20 09:00 02/21/20 08:18 Norvasc PO 5 mg DAILY EPI Administration Apixaban 5 mg 02/20/20 09:00 02/21/20 08:18 Eliquis PO 5 mg BID EPI Administration Famotidine 20 mg 02/20/20 09:00 02/21/20 08:18 Pepcid PO 20 mg DAILY EPI Administration Furosemide 40 mg 02/20/20 14:00 02/21/20 13:57 Lasix SLOW IVP 40 mg 0600,1400 EPI Administration Pantoprazole Sodium 40 mg 02/20/20 09:00 02/21/20 08:18 Protonix PO 40 mg DAILY EPI Administration Polyethylene Glycol 17 gm 02/20/20 09:00 02/21/20 08:17 Miralax PO Not Given DAILY EPI Potassium Chloride 40 meq 02/21/20 08:00 02/21/20 08:17 K-Dur PO 02/22/20 17:01 40 meq BID-WM EPI Administration Sodium Chloride 10 ml 02/21/20 09:00 02/21/20 08:19 Flush - Normal Saline IVF 10 ml Q12HR EPI Administration - Exam Eye: PERRL, anicteric sclera Heart: RRR, no murmur, no gallops, no rubs, normal peripheral pulses Respiratory: CTAB, no wheezes, no rales, no ronchi, normal chest expansion, no tachypnea Gastrointestinal: soft, non-tender, non-distended, normal bowel sounds, no palpable masses, no hepatomegaly Extremities: no cyanosis, 1+ LE edema (trace pedal edema in both lower extremities) Hosp A/P (1) Acute respiratory failure with hypoxia Code(s): J96.01 - ACUTE RESPIRATORY FAILURE WITH HYPOXIA Status: Acute (2) Diastolic heart failure Code(s): I50.30 - UNSPECIFIED DIASTOLIC (CONGESTIVE) HEART FAILURE Status: Acute Qualifiers: Heart failure chronicity: acute on chronic Qualified Code(s): I50.33 - Acute on chronic diastolic (congestive) heart failure (3) HTN (hypertension) Code(s): I10 - ESSENTIAL (PRIMARY) HYPERTENSION Status: Chronic Qualifiers: Hypertension type: essential hypertension Qualified Code(s): I10 - Essential (primary) hypertension (4) Hypokalemia Code(s): E87.6 - HYPOKALEMIA Status: Resolved (5) Atrial flutter Code(s): I48.92 - UNSPECIFIED ATRIAL FLUTTER Status: Chronic - Plan * Acute Diastolic heart failure- she is symptomatically improved after diureses * Echo findings noted * Awaiting further recommendations from Cardiology * HTN- blood pressure is stable * Replace potassium * Atrial flutter- stable
[2020-02-22 04:44] LABS: #Basophils 0.1 thou/uL (0.0-0.2); #Eosinphils 0.4 thou/uL (0.0-0.7); #Lymphocytes 2.9 thou/uL (1.20-3.40); #Monocytes 1.6 thou/uL (0.11-0.59); %Basophils 0.8 % (0.0-1.0); %Eosinophils 3.8 % (0.0-10.0); %Lymphocytes 26.4 % (21.0-51.0); %Monocytes 14.3 % (0.0-10.0); %Neutrophils 54.8 % (42.0-75.0); Hemoglobin 12.5 g/dL (12.0-16.0); Mean Corpuscular HGB CONC 32.8 g/dL (32.0-36.0); Mean Corpuscular Hemoglobin 31.8 pg (27.0-31.0); Mean Corpuscular Volume 96.9 fL (78.0-98.0); Mean Platelet Volume 7.1 fL (7.4-10.4); Platelet Count 255 thou/uL (130-400); RBC Distribution Width 12.3 % (11.5-14.5); Red Blood Cell (RBC) Count 3.94 mill/uL (4.20-5.40)
[2020-02-22 05:04] LABS: Anion Gap 11 mmol/L (10-20); BUN (Urea Nitrogen) 32 mg/dL (9.8-20.1); Calc. Creatinine Clearance 40 mL/min (70-130); Calcium 9.2 mg/dL (7.8-10.44); Carbon Dioxide 32 mmol/L (23-31); Chloride 97 mmol/L (98-107); Estimated GFR-MDRD 40; Glucose 97 mg/dL (83-110); Magnesium 2.1 mg/dL (1.6-2.6); Potassium 3.6 mmol/L (3.5-5.1); Sodium 136 mmol/L (136-145)
[2020-02-22] MEDS: Furosemide 40 MG/4 ML VIAL SLOW IVP SCH ×2 (06:07→14:15)
--- NOTE | 2020-02-22 07:40 | RAD ---
CHEST 1 VIEW: INDICATION: History of CHF. COMPARISON: Prior dated 02/20/2020. FINDINGS: There is significant improvement in central edema pattern, pulmonary vasculature congestion and cardi omegaly. Tiny bilateral pleural effusions have improved. No pneumothorax is evident. No acute osse ous abnormality is evident. IMPRESSION: Improving congestive heart failure. POS: BH
[2020-02-22 08:40] LABS: Hemoglobin 13.3 g/dL (12.0-16.0); Platelet Count 286 thou/uL (130-400)
[2020-02-22] MEDS ORDERED: ADENOSINE 60 MG/20 ML VIAL ONE (08:45)
[2020-02-22] MEDS: Potassium Chloride 20 MEQ TAB PO SCH ×2 (11:48→17:15)
[2020-02-22] MEDS: Amlodipine 5 MG TAB PO SCH (11:49)
[2020-02-22] MEDS: Amiodarone 200 MG TAB PO SCH (11:49)
[2020-02-22] MEDS: Polyethylene Glycol 3350 17 GM Packet PO SCH (11:50)
[2020-02-22] MEDS: Apixaban 5 MG TAB PO SCH ×2 (11:50→20:12)
--- NOTE | 2020-02-22 11:52 | NM ---
Radionucleotide stress and rest myocardial perfusion scan with CT attenuation correction and SPECT im aging Left ventricular wall motion evaluation and ejection fraction HISTORY: Chest pain. FINDINGS: Adenosine protocol. There is heterogeneous uptake of radiotracer throughout the left ventri cular myocardium. No focal perfusion defect or reversibility evident. QGS analysis of gated SPECT images shows dyskinesis of the distal septum and inferior wall. Ejection fraction calculated at 66%. IMPRESSION : No evidence of ischemia. Dyskinetic motion of the distal inferior/septal richter. Preserved LVEF.
[2020-02-22] MEDS: Famotidine 20 MG TAB PO SCH (11:53)
--- NOTE | 2020-02-22 18:56 | PDOC.HOSPP ---
- Subjective Encounter Date: 02/22/20 Encounter Time: 18:54 Subjective: Ms. Sanz was seen today in follow-up of diastolic heart failure. She says she is breathing better, no complaints. - Objective Vital Signs & Weight: Vital Signs (12 hours) Temp Pulse Resp BP Pulse Ox 02/22/20 15:17 98.0 F 57 L 12 101/59 L 97 02/22/20 11:50 97.8 F 68 12 116/72 99 02/22/20 07:23 97.3 F L 60 16 141/67 H 94 L Weight Weight 164 lb I&O: 02/21/20 02/22/20 02/23/20 06:59 06:59 06:59 Intake Total 850 960 960 Output Total 2700 1900 1850 Balance -1850 -940 -890 Result Diagrams: 02/22/20 08:20 02/22/20 08:20 Hospitalist ROS - Medication Medications: Active Medications Generic Name Dose Route Start Last Admin Trade Name Freq PRN Reason Stop Dose Admin Amiodarone HCl 200 mg 02/20/20 09:00 02/22/20 11:49 Cordarone PO 200 mg DAILY EPI Administration Amlodipine Besylate 5 mg 02/20/20 09:00 02/22/20 11:49 Norvasc PO 5 mg DAILY EPI Administration Apixaban 5 mg 02/20/20 09:00 02/22/20 11:50 Eliquis PO 5 mg BID EPI Administration Furosemide 40 mg 02/20/20 14:00 02/22/20 14:15 Lasix SLOW IVP 40 mg 0600,1400 EPI Administration Pantoprazole Sodium 40 mg 02/20/20 09:00 02/22/20 11:50 Protonix PO 40 mg DAILY EPI Administration Polyethylene Glycol 17 gm 02/20/20 09:00 02/22/20 11:50 Miralax PO Not Given DAILY EPI Sodium Chloride 10 ml 02/21/20 09:00 02/22/20 11:51 Flush - Normal Saline IVF 10 ml Q12HR EPI Administration - Exam Eye: PERRL, anicteric sclera Heart: RRR, no murmur, no gallops, no rubs, normal peripheral pulses Respiratory: CTAB, no wheezes, no rales, no ronchi, normal chest expansion, no tachypnea Gastrointestinal: soft, non-tender, non-distended, normal bowel sounds, no palpable masses, no hepatomegaly Extremities: no cyanosis, no clubbing, 1+ LE edema Hosp A/P (1) Acute respiratory failure with hypoxia Code(s): J96.01 - ACUTE RESPIRATORY FAILURE WITH HYPOXIA Status: Acute (2) Diastolic heart failure Code(s): I50.30 - UNSPECIFIED DIASTOLIC (CONGESTIVE) HEART FAILURE Status: Acute Qualifiers: Heart failure chronicity: acute on chronic Qualified Code(s): I50.33 - Acute on chronic diastolic (congestive) heart failure (3) HTN (hypertension) Code(s): I10 - ESSENTIAL (PRIMARY) HYPERTENSION Status: Chronic Qualifiers: Hypertension type: essential hypertension Qualified Code(s): I10 - Essential (primary) hypertension (4) Hypokalemia Code(s): E87.6 - HYPOKALEMIA Status: Resolved (5) Atrial flutter Code(s): I48.92 - UNSPECIFIED ATRIAL FLUTTER Status: Chronic - Plan * Acute Diastolic heart failure- she continues to diurese well * Stress test results noted * HTN- blood pressure is stable * Serum Potassium has improved * Atrial flutter- stable
--- NOTE | 2020-02-22 20:40 | PRG ---
DATE OF SERVICE: 02/22/2020 SUBJECTIVE: Yvon is feeling better and she is not short of breath. She overall feels quite well. OBJECTIVE: VITAL SIGNS: Her blood pressure 116/72, most recently is 101/59; pulse is 60 and sinus. LUNGS: Clear. CARDIAC: Normal S1. Normal S2. ABDOMEN: Soft, nontender. Stress test revealed no ischemia with normal left ventricular ejection fraction. ASSESSMENT: 1. Congestive heart failure, diastolic, [id number], improved/resolved. 2. Atrial arrhythmias, controlled. 3. Hypertension. PLAN: 1. She should be able to be released home tomorrow. 2. Metoprolol has been stopped. We will check on the patient again tomorrow. Job ID: [id number]
[2020-02-23 04:46] LABS: #Basophils 0.1 thou/uL (0.0-0.2); #Eosinphils 0.4 thou/uL (0.0-0.7); #Lymphocytes 2.6 thou/uL (1.20-3.40); #Monocytes 1.3 thou/uL (0.11-0.59); #Neutrophils 5.7 thou/uL (1.40-6.50); %Basophils 0.7 % (0.0-1.0); %Lymphocytes 25.7 % (21.0-51.0); %Monocytes 12.7 % (0.0-10.0); %Neutrophils 56.9 % (42.0-75.0); Hemoglobin 13.8 g/dL (12.0-16.0); Mean Corpuscular Hemoglobin 32.7 pg (27.0-31.0); Mean Corpuscular Volume 96.2 fL (78.0-98.0); Mean Platelet Volume 7.5 fL (7.4-10.4); Platelet Count 282 thou/uL (130-400); RBC Distribution Width 12.3 % (11.5-14.5); Red Blood Cell (RBC) Count 4.23 mill/uL (4.20-5.40); White Blood Cell (WBC) Count 10.1 thou/uL (4.8-10.8)
[2020-02-23 05:03] LABS: Anion Gap 13 mmol/L (10-20); BUN (Urea Nitrogen) 38 mg/dL (9.8-20.1); Calc. Creatinine Clearance 34 mL/min (70-130); Carbon Dioxide 33 mmol/L (23-31); Chloride 98 mmol/L (98-107); Estimated GFR-MDRD 34; Glucose 109 mg/dL (83-110); Magnesium 2.3 mg/dL (1.6-2.6); Potassium 4.5 mmol/L (3.5-5.1); Sodium 139 mmol/L (136-145)
[2020-02-23] MEDS: Furosemide 40 MG/4 ML VIAL SLOW IVP SCH (06:15)
[2020-02-23 07:23] VITALS: TEMP 97.8
[2020-02-23] MEDS: Polyethylene Glycol 3350 17 GM Packet PO SCH (08:45)
[2020-02-23] MEDS: Amlodipine 5 MG TAB PO SCH (08:46)
[2020-02-23] MEDS: Apixaban 5 MG TAB PO SCH (08:46)
[2020-02-23] MEDS: Amiodarone 200 MG TAB PO SCH (08:47)
[2020-02-23] MEDS ORDERED: Amlodipine 5 MG TAB PO SCH (09:30)
--- NOTE | 2020-02-23 11:41 | PDOC.HOSPP ---
- Subjective Encounter Date: 02/23/20 Encounter Time: 11:40 Subjective: Ms. Sanz was seen today in follow-up of CHF exacerbation. She is feeling better. - Objective Vital Signs & Weight: Vital Signs (12 hours) Temp Pulse Resp BP BP Pulse Ox 02/23/20 08:00 67 132/62 02/23/20 07:17 97.8 F 61 18 112/58 L 97 02/23/20 04:00 97.6 F 60 18 140/67 98 Weight Weight 164 lb 12.8 oz I&O: 02/22/20 02/23/20 02/24/20 06:59 06:59 06:59 Intake Total 960 1200 Output Total 1900 2650 Balance -940 -1450 Result Diagrams: 02/23/20 04:29 02/23/20 04:29 Hospitalist ROS - Medication Medications: Active Medications Generic Name Dose Route Start Last Admin Trade Name Freq PRN Reason Stop Dose Admin Amiodarone HCl 200 mg 02/20/20 09:00 02/23/20 08:47 Cordarone PO 200 mg DAILY EPI Administration Apixaban 5 mg 02/20/20 09:00 02/23/20 08:46 Eliquis PO 5 mg BID EPI Administration Pantoprazole Sodium 40 mg 02/20/20 09:00 02/23/20 08:46 Protonix PO 40 mg DAILY EPI Administration Polyethylene Glycol 17 gm 02/20/20 09:00 02/23/20 08:45 Miralax PO Not Given DAILY EPI Sodium Chloride 10 ml 02/21/20 09:00 02/23/20 08:47 Flush - Normal Saline IVF 10 ml Q12HR EPI Administration Hosp A/P (1) Acute respiratory failure with hypoxia Code(s): J96.01 - ACUTE RESPIRATORY FAILURE WITH HYPOXIA Status: Acute (2) Diastolic heart failure Code(s): I50.30 - UNSPECIFIED DIASTOLIC (CONGESTIVE) HEART FAILURE Status: Acute Qualifiers: Heart failure chronicity: acute on chronic Qualified Code(s): I50.33 - Acute on chronic diastolic (congestive) heart failure (3) HTN (hypertension) Code(s): I10 - ESSENTIAL (PRIMARY) HYPERTENSION Status: Chronic Qualifiers: Hypertension type: essential hypertension Qualified Code(s): I10 - Essential (primary) hypertension (4) Hypokalemia Code(s): E87.6 - HYPOKALEMIA Status: Resolved (5) Atrial flutter Code(s): I48.92 - UNSPECIFIED ATRIAL FLUTTER Status: Chronic - Plan * Acute Diastolic heart failure- she continues to diurese well * Stress test results noted * HTN- blood pressure is stable * She has been evaluated by Dr. Roldan and cleared for discharge
[2020-02-23 11:42] VITALS: BP 132/63
--- NOTE | 2020-02-23 20:11 | DIS ---
DATE OF ADMISSION: 02/20/2020 DATE OF DISCHARGE: 02/23/2020 PRIMARY CARE PHYSICIAN: Dr. Diego Harris. DISCHARGE DISPOSITION: Home. DISCHARGE DIAGNOSES: 1. Acute diastolic heart failure. 2. Atrial arrhythmias. 3. History of atrial fibrillation, status post ablation. 4. Hypertension. DISCHARGE MEDICATIONS: 1. Demadex 20 mg p.o. daily. 2. K-Dur 20 mEq daily. 3. Zinc and copper daily. 4. Pantoprazole 40 mg daily. 5. Eliquis 5 mg daily. 6. Amlodipine 5 mg p.o. daily. 7. Amiodarone 200 mg daily. IMAGING DONE DURING THE HOSPITAL STAY: The patient had an echocardiogram, in which the ejection fraction was estimated at 60% to 65%. There was some grade 3 diastolic dysfunction. The left atrium was valgnapbdg-to-[id number] dilated. The patient also had a nuclear stress test, in which there was no evidence of ischemia. There was some dyskinetic motion in the distal inferior septal wall. CODE STATUS: Full code. ALLERGIES: TO ERYTHROMYCIN BASE AND PREDNISONE. HOSPITAL COURSE: Ms. Sanz is a pleasant 84-year-old female, who was admitted to the hospital after having complaints of chest pain and shortness of breath. She was evaluated in the ER and found to be in heart failure. This was new to the patient. For this reason, an echocardiogram was obtained, which demonstrated that she has diastolic dysfunction. A stress test was also obtained under the direction of the banking supervisor, there was no evidence of any ischemia. During her hospital stay, her medications were adjusted and she was started on Demadex as well as potassium for the volume overload related to diastolic dysfunction. Also, arrangements were made for her to receive home health to help her manage her fluid intake and volume in the outpatient setting. Once these arrangements were made and the patient was stabilized, she was able to be discharged home on 02/23/2020. She is to see Dr. Roldan in approximately 1 month and also to follow up with her primary care physician as already scheduled. Job ID: [id number]
[2020-02-24] MEDS ORDERED: Potassium Chloride 20 MEQ TAB PO SCH (08:00)
[2020-02-24] MEDS ORDERED: Amlodipine 5 MG TAB PO SCH (09:00)
[2020-02-24] MEDS ORDERED: Torsemide 20 MG TAB PO SCH (09:00)
== END 2020-02-23 12:30 | disposition home health service (06) | DRG 291 ==
LOC: ERS 03:00 → CCU 04:46 → 2NO 05:30
PROVIDERS: ADMIT Internal Medicine; ATTEND Internal Medicine
DX: I11.0 Hypertensive heart disease with heart failure (principal); J96.01 Acute respiratory failure with hypoxia; I47.1 Supraventricular tachycardia; I48.92 Unspecified atrial flutter; I49.9 Cardiac arrhythmia, unspecified; I48.91 Unspecified atrial fibrillation; D72.829 Elevated white blood cell count, unspecified; K21.9 Gastro-esophageal reflux disease without esophagitis; E87.6 Hypokalemia; I50.33 Acute on chronic diastolic (congestive) heart failure; Z79.01 Long term (current) use of anticoagulants; Z88.1 Allergy status to other antibiotic agents; Z88.8 Allergy status to other drugs, medicaments and biological substances; Z90.49 Acquired absence of other specified parts of digestive tract
CPT/HCPCS: 36415; 71045; 78452; 80048; 80053; 82553; 83735; 83880; 84484; 85025; 92960; 93005; 93017; 93306; 93798; 96374; A9500; J0153; J1940; J2704

== ENCOUNTER 2020-12-04 13:56 | Inpatient (IN) | payer MEDICARE ==
[2020-12-04 14:34] LABS: #Eosinphils 0.1 thou/uL (0.0-0.7); #Lymphocytes 1.4 thou/uL (1.20-3.40); #Neutrophils 9.5 thou/uL (1.40-6.50); %Basophils 0.2 % (0.0-1.0); %Eosinophils 0.5 % (0.0-10.0); %Lymphocytes 11.4 % (21.0-51.0); %Neutrophils 79.9 % (42.0-75.0); Hemoglobin 12.6 g/dL (12.0-16.0); Mean Corpuscular HGB CONC 33.5 g/dL (32.0-36.0); Mean Corpuscular Hemoglobin 32.5 pg (27.0-31.0); Mean Corpuscular Volume 97.1 fL (78.0-98.0); Mean Platelet Volume 7.1 fL (7.4-10.4); Platelet Count 254 thou/uL (130-400); RBC Distribution Width 12.5 % (11.5-14.5); Red Blood Cell (RBC) Count 3.88 mill/uL (4.20-5.40); White Blood Cell (WBC) Count 11.9 thou/uL (4.8-10.8)
[2020-12-04 15:03] LABS: ALT (SGPT) 23 U/L (8-55); AST (SGOT) 19 U/L (5-34); Albumin 3.8 g/dL (3.4-4.8); Alkaline Phosphatase 85 U/L (40-110); Anion Gap 13 mmol/L (10-20); BUN (Urea Nitrogen) 35 mg/dL (9.8-20.1); Bilirubin, Total 0.4 mg/dL (0.2-1.2); Calc. Creatinine Clearance 0 mL/min (70-130); Calcium 8.9 mg/dL (7.8-10.44); Carbon Dioxide 27 mmol/L (23-31); Chloride 100 mmol/L (98-107); Globulin 3.3 g/dL (2.4-3.5); Glucose 160 mg/dL (83-110); Lipase 24 U/L (8-78); Potassium 3.8 mmol/L (3.5-5.1); Protein, Total 7.1 g/dL (5.8-8.1); Sodium 136 mmol/L (136-145)
[2020-12-04] MEDS ORDERED: Aspirin Chewable 81 MG TAB ONE (16:30)
[2020-12-04 18:11] LABS: Troponin I 0.021 ng/mL (< 0.028)
[2020-12-04] MEDS ORDERED: Bisacodyl 5 MG TAB PO PRN (19:11)
[2020-12-04] MEDS: Sodium Chloride 0.9% 1,000 ML IV SCH (21:42)
[2020-12-05 04:20] LABS: SARS-CoV-2 PCR by NAA Not Detected (NotDetected)
[2020-12-05] MEDS ORDERED: Metoprolol Tartrate 5 MG/5 ML VIAL IVP SCH (05:45)
[2020-12-05 06:17] LABS: #Basophils 0.1 thou/uL (0.0-0.2); #Eosinphils 0.2 thou/uL (0.0-0.7); #Lymphocytes 3.8 thou/uL (1.20-3.40); #Monocytes 1.4 thou/uL (0.11-0.59); #Neutrophils 9.9 thou/uL (1.40-6.50); %Basophils 0.6 % (0.0-1.0); %Eosinophils 1.3 % (0.0-10.0); %Lymphocytes 24.7 % (21.0-51.0); %Monocytes 9.2 % (0.0-10.0); %Neutrophils 64.2 % (42.0-75.0); Hemoglobin 13.1 g/dL (12.0-16.0); Mean Corpuscular HGB CONC 32.9 g/dL (32.0-36.0); Mean Corpuscular Hemoglobin 31.8 pg (27.0-31.0); Mean Corpuscular Volume 96.5 fL (78.0-98.0); Mean Platelet Volume 7.2 fL (7.4-10.4); Platelet Count 245 thou/uL (130-400); RBC Distribution Width 12.6 % (11.5-14.5); Red Blood Cell (RBC) Count 4.14 mill/uL (4.20-5.40); White Blood Cell (WBC) Count 15.4 thou/uL (4.8-10.8)
[2020-12-05] MEDS: Apixaban 5 MG TAB PO SCH ×3 (06:34→20:08)
[2020-12-05 06:37] LABS: Anion Gap 14 mmol/L (10-20); BUN (Urea Nitrogen) 28 mg/dL (9.8-20.1); Calc. Creatinine Clearance 0 mL/min (70-130); Calcium 8.8 mg/dL (7.8-10.44); Carbon Dioxide 25 mmol/L (23-31); Chloride 103 mmol/L (98-107); Glucose 100 mg/dL (83-110); Potassium 3.2 mmol/L (3.5-5.1); Sodium 139 mmol/L (136-145)
[2020-12-05 10:47] VITALS: BMI 29.7
[2020-12-05] MEDS: Amiodarone 200 MG TAB PO SCH (10:49)
[2020-12-05] MEDS: Sodium Chloride 0.9% 1,000 ML IV SCH (10:56)
[2020-12-05] MEDS: Amlodipine 5 MG TAB PO SCH (11:37)
[2020-12-05] MEDS: Potassium Chloride 20 MEQ TAB PO SCH (11:37)
[2020-12-05] MEDS: Acetaminophen 325 MG TAB PO PRN (17:58)
[2020-12-05] MEDS ORDERED: Lidocaine 2% Viscous Solution 10 ML, Aluminum & Magnesium Hydroxide 30 ML SSW SCH (18:00)
[2020-12-05] MEDS ORDERED: Ondansetron PF 4 MG/2 ML Vial IVP SCH (23:30)
[2020-12-06] MEDS ORDERED: Metoprolol Tartrate 5 MG/5 ML VIAL IVP SCH (00:45)
[2020-12-06] MEDS ORDERED: Magnesium 2 GM/50 ML 2 GM in Premix Bag 1 BAG IVPB SCH (01:15)
[2020-12-06 01:17] LABS: #Monocytes 1.4 thou/uL (0.11-0.59); #Neutrophils 13.9 thou/uL (1.40-6.50); %Basophils 0.1 % (0.0-1.0); %Eosinophils 0.2 % (0.0-10.0); %Lymphocytes 5.9 % (21.0-51.0); %Monocytes 8.3 % (0.0-10.0); %Neutrophils 85.5 % (42.0-75.0); Hemoglobin 13.6 g/dL (12.0-16.0); Mean Corpuscular HGB CONC 33.4 g/dL (32.0-36.0); Mean Corpuscular Hemoglobin 32.3 pg (27.0-31.0); Mean Corpuscular Volume 96.7 fL (78.0-98.0); Mean Platelet Volume 6.9 fL (7.4-10.4); Platelet Count 237 thou/uL (130-400); RBC Distribution Width 12.6 % (11.5-14.5); Red Blood Cell (RBC) Count 4.22 mill/uL (4.20-5.40); White Blood Cell (WBC) Count 16.3 thou/uL (4.8-10.8)
[2020-12-06 01:20] LABS: Lactic Acid 0.9 mmol/L (0.5-2.2)
[2020-12-06 01:24] LABS: Phosphorus 3.1 mg/dL (2.3-4.7)
[2020-12-06 01:32] LABS: Anion Gap 13 mmol/L (10-20); BUN (Urea Nitrogen) 18 mg/dL (9.8-20.1); Calc. Creatinine Clearance 52 mL/min (70-130); Calcium 8.8 mg/dL (7.8-10.44); Carbon Dioxide 25 mmol/L (23-31); Chloride 101 mmol/L (98-107); Glucose 142 mg/dL (83-110); Potassium 3.3 mmol/L (3.5-5.1); Sodium 136 mmol/L (136-145)
[2020-12-06] MEDS: Potassium Chloride 20 MEQ in Premix Bag 1 BAG IVPB SCH ×2 (01:44→04:43)
[2020-12-06 01:53] LABS: CKMB 15.6 ng/mL (0-6.6)
[2020-12-06 06:43] LABS: CKMB 14.7 ng/mL (0-6.6); Critical Call CKMB RESULT DECREASING
[2020-12-06] MEDS ORDERED: Furosemide 40 MG/4 ML VIAL SLOW IVP SCH (06:45)
[2020-12-06] MEDS: Potassium Chloride 20 MEQ TAB PO SCH (08:52)
[2020-12-06] MEDS: Amlodipine 5 MG TAB PO SCH (08:53)
[2020-12-06] MEDS: Amiodarone 200 MG TAB PO SCH (08:54)
[2020-12-06] MEDS ORDERED: Apixaban 2.5 MG TAB PO SCH (09:00)
[2020-12-06] MEDS ORDERED: Communication Order-Pharmacy FS SCH (18:15)
[2020-12-06] MEDS ORDERED: Promethazine HCl 25 MG/ML VIAL IM/IV PRN (18:25)
[2020-12-06] MEDS ORDERED: Promethazine HCl 25 MG in Sodium Chloride 0.9% 50 ML IVPB PRN (18:36)
[2020-12-06] MEDS: Enoxaparin Sodium 40 MG/0.4 ML SYRINGE SC SCH (20:47)
[2020-12-07] MEDS ORDERED: Furosemide 20 MG/2 ML VIAL SLOW IVP SCH ×2 (02:15→02:30)
[2020-12-07 02:35] LABS: Hemoglobin 13.8 g/dL (12.0-16.0); Mean Corpuscular HGB CONC 33.4 g/dL (32.0-36.0); Mean Corpuscular Hemoglobin 32.7 pg (27.0-31.0); Mean Corpuscular Volume 97.8 fL (78.0-98.0); Mean Platelet Volume 7.2 fL (7.4-10.4); Platelet Count 228 thou/uL (130-400); RBC Distribution Width 12.7 % (11.5-14.5); Red Blood Cell (RBC) Count 4.21 mill/uL (4.20-5.40)
[2020-12-07 02:43] LABS: Lactic Acid 1.2 mmol/L (0.5-2.2)
[2020-12-07 02:47] LABS: Anion Gap 18 mmol/L (10-20); Carbon Dioxide 20 mmol/L (23-31); Chloride 98 mmol/L (98-107); Magnesium 2.4 mg/dL (1.6-2.6); Potassium 4.2 mmol/L (3.5-5.1); Sodium 132 mmol/L (136-145)
[2020-12-07 02:52] LABS: Band 1 % (5-11); Lymphocytes 1 % (21-51); MDiff Complete? YES; Monocytes 26 % (0-10); Neutrophil 71 % (42-75); Platelet Morphology Comment Appears Adequate; RBC Morphology Normal; Reactive Lymphocytes 1 % (0-10)
[2020-12-07 02:54] LABS: Anion Gap 18 mmol/L (10-20); BUN (Urea Nitrogen) 19 mg/dL (9.8-20.1); Calc. Creatinine Clearance 49 mL/min (70-130); Calcium 9.3 mg/dL (7.8-10.44); Carbon Dioxide 21 mmol/L (23-31); Chloride 98 mmol/L (98-107); Glucose 128 mg/dL (83-110); Potassium 4.1 mmol/L (3.5-5.1); Sodium 133 mmol/L (136-145)
[2020-12-07] MEDS: Furosemide 40 MG/4 ML VIAL SLOW IVP SCH ×2 (05:43→14:22)
[2020-12-07] MEDS: Potassium Chloride 20 MEQ TAB PO SCH (08:24)
[2020-12-07] MEDS: Amlodipine 5 MG TAB PO SCH (08:24)
[2020-12-07] MEDS: Amiodarone 200 MG TAB PO SCH (08:24)
[2020-12-07] MEDS: Enoxaparin Sodium 40 MG/0.4 ML SYRINGE SC SCH ×2 (08:25→21:41)
[2020-12-07] MEDS ORDERED: Sodium Chloride 0.9% 1,000 ML IV SCH (18:00)
[2020-12-08] MEDS: Furosemide 40 MG/4 ML VIAL SLOW IVP SCH (02:26)
[2020-12-08] MEDS: Amiodarone 200 MG TAB PO SCH ×3 (05:56→20:45)
[2020-12-08] MEDS: Amlodipine 5 MG TAB PO SCH (05:56)
[2020-12-08] MEDS ORDERED: Sodium Chloride 0.9% 1,000 ML IV SCH ×2 (06:00→08:45)
[2020-12-08] MEDS ORDERED: Lidocaine 1% (PF) 30 ML VIAL ONE (06:33)
[2020-12-08] MEDS ORDERED: Aspirin Chewable 81 MG TAB ONE (07:43)
[2020-12-08] MEDS ORDERED: Heparin 10,000 UNITS/ 10 ML VIAL ONE (07:43)
[2020-12-08] MEDS ORDERED: Nitroglycerin 100MG/250ML BOT 250 ML ONE (07:45)
[2020-12-08] MEDS ORDERED: Clopidogrel Bisulfate 300 MG TAB ONE (08:26)
[2020-12-08] MEDS ORDERED: Clopidogrel Bisulfate 300 MG TAB PO SCH (08:45)
[2020-12-08] MEDS: Potassium Chloride 20 MEQ TAB PO SCH (13:58)
[2020-12-08] MEDS ORDERED: Iopamidol 370 76% 50 ML VIAL FS ONE (15:05)
[2020-12-08] MEDS ORDERED: Iopamidol 370 76% 100 ML VIAL ONE (15:05)
[2020-12-09 04:37] LABS: #Basophils 0.1 thou/uL (0.0-0.2); #Eosinphils 0.3 thou/uL (0.0-0.7); #Lymphocytes 1.3 thou/uL (1.20-3.40); #Monocytes 1.2 thou/uL (0.11-0.59); %Basophils 0.7 % (0.0-1.0); %Eosinophils 2.9 % (0.0-10.0); %Lymphocytes 11.6 % (21.0-51.0); %Monocytes 10.8 % (0.0-10.0); Hemoglobin 12.5 g/dL (12.0-16.0); Mean Corpuscular HGB CONC 32.5 g/dL (32.0-36.0); Mean Corpuscular Hemoglobin 32.1 pg (27.0-31.0); Mean Corpuscular Volume 98.8 fL (78.0-98.0); Mean Platelet Volume 7.3 fL (7.4-10.4); Platelet Count 236 thou/uL (130-400); RBC Distribution Width 12.5 % (11.5-14.5); Red Blood Cell (RBC) Count 3.89 mill/uL (4.20-5.40); White Blood Cell (WBC) Count 10.8 thou/uL (4.8-10.8)
[2020-12-09 04:56] LABS: ALT (SGPT) 23 U/L (8-55); AST (SGOT) 19 U/L (5-34); Albumin 3.1 g/dL (3.4-4.8); Alkaline Phosphatase 74 U/L (40-110); Anion Gap 13 mmol/L (10-20); BUN (Urea Nitrogen) 22 mg/dL (9.8-20.1); Bilirubin, Total 0.8 mg/dL (0.2-1.2); Calc. Creatinine Clearance 57 mL/min (70-130); Calcium 9.1 mg/dL (7.8-10.44); Carbon Dioxide 26 mmol/L (23-31); Chloride 105 mmol/L (98-107); Globulin 3.7 g/dL (2.4-3.5); Glucose 113 mg/dL (83-110); Potassium 3.3 mmol/L (3.5-5.1); Protein, Total 6.8 g/dL (5.8-8.1); Sodium 141 mmol/L (136-145)
[2020-12-09] MEDS ORDERED: Furosemide 40 MG/4 ML VIAL SLOW IVP SCH (06:00)
[2020-12-09] MEDS: Amiodarone 200 MG TAB PO SCH ×2 (08:24→20:49)
[2020-12-09] MEDS: Aspirin Chewable 81 MG TAB PO SCH (08:24)
[2020-12-09] MEDS: Clopidogrel Bisulfate 75 MG TAB PO SCH (08:24)
[2020-12-09] MEDS: Amlodipine 5 MG TAB PO SCH (08:24)
[2020-12-09] MEDS: Potassium Chloride 20 MEQ TAB PO SCH ×2 (08:24→08:25)
[2020-12-09] MEDS ORDERED: Potassium Chloride 20 MEQ TAB PO SCH ×2 (12:00→20:00)
[2020-12-09] MEDS: Atorvastatin Calcium 10 MG TAB PO SCH (20:49)
[2020-12-10 06:13] LABS: Anion Gap 12 mmol/L (10-20); BUN (Urea Nitrogen) 24 mg/dL (9.8-20.1); Calc. Creatinine Clearance 53 mL/min (70-130); Calcium 9.4 mg/dL (7.8-10.44); Carbon Dioxide 28 mmol/L (23-31); Cardiac Risk 4.1 (Less than 4.5); Chloride 107 mmol/L (98-107); Cholesterol 164 mg/dl (< 200 Desired); Glucose 117 mg/dL (83-110); HDL Cholesterol 40 mg/dL (>60 Neg Risk); LDL Cholesterol, Calculated 108 mg/dL; Magnesium 2.2 mg/dL (1.6-2.6); Sodium 143 mmol/L (136-145); Triglycerides 78 mg/dL (Less than 150)
[2020-12-10] MEDS: Potassium Chloride 20 MEQ TAB PO SCH (08:10)
[2020-12-10] MEDS: Aspirin Chewable 81 MG TAB PO SCH (08:10)
[2020-12-10] MEDS: Clopidogrel Bisulfate 75 MG TAB PO SCH (08:10)
[2020-12-10] MEDS: Torsemide 20 MG TAB PO SCH (08:10)
[2020-12-10] MEDS: Amiodarone 200 MG TAB PO SCH ×2 (08:10→21:09)
[2020-12-10] MEDS: Amlodipine 5 MG TAB PO SCH (08:11)
[2020-12-10] MEDS ORDERED: Lisinopril 5 MG TAB PO SCH (09:00)
[2020-12-10] MEDS ORDERED: Metoprolol Tartrate 5 MG/5 ML VIAL IVP PRN (10:00)
[2020-12-10] MEDS ORDERED: Amiodarone 150 MG in Dextrose 5% in Water 100 ML IVPB SCH (11:00)
[2020-12-10] MEDS ORDERED: Amiodarone 450 MG, Admixture Fee 1 EACH in Dextrose 5% in Water 250 ML IVPB SCH (11:00)
[2020-12-10] MEDS ORDERED: Sodium Chloride 0.9% 500 ML IV SCH (11:15)
[2020-12-10 12:46] LABS: Anion Gap 14 mmol/L (10-20); BUN (Urea Nitrogen) 23 mg/dL (9.8-20.1); Calc. Creatinine Clearance 45 mL/min (70-130); Calcium 9.1 mg/dL (7.8-10.44); Carbon Dioxide 29 mmol/L (23-31); Chloride 105 mmol/L (98-107); Glucose 126 mg/dL (83-110); Potassium 3.7 mmol/L (3.5-5.1); Sodium 144 mmol/L (136-145)
[2020-12-10] MEDS ORDERED: Potassium Chloride 20 MEQ TAB PO SCH (13:00)
[2020-12-10 13:26] LABS: CKMB 0.9 ng/mL (0-6.6)
[2020-12-10] MEDS ORDERED: Digoxin 0.5 MG/2 ML AMP SLOW IVP SCH (16:30)
[2020-12-10] MEDS ORDERED: Norepinephrine 8 MG/0.9% NS 250 ML IVPB SCH (16:45)
[2020-12-10] MEDS ORDERED: Enoxaparin Sodium 60 MG/0.6 ML SYRINGE SC SCH (20:00)
[2020-12-10] MEDS: Atorvastatin Calcium 10 MG TAB PO SCH (21:17)
[2020-12-11 03:33] LABS: #Basophils 0.1 thou/uL (0.0-0.2); #Eosinphils 0.5 thou/uL (0.0-0.7); #Lymphocytes 2.4 thou/uL (1.20-3.40); #Monocytes 1.4 thou/uL (0.11-0.59); #Neutrophils 8.7 thou/uL (1.40-6.50); %Basophils 0.4 % (0.0-1.0); %Eosinophils 3.5 % (0.0-10.0); %Lymphocytes 18.3 % (21.0-51.0); %Monocytes 10.5 % (0.0-10.0); %Neutrophils 67.3 % (42.0-75.0); Hemoglobin 12.7 g/dL (12.0-16.0); Mean Corpuscular Hemoglobin 32.4 pg (27.0-31.0); Mean Corpuscular Volume 98.1 fL (78.0-98.0); Mean Platelet Volume 7.4 fL (7.4-10.4); Platelet Count 241 thou/uL (130-400); RBC Distribution Width 12.6 % (11.5-14.5); Red Blood Cell (RBC) Count 3.94 mill/uL (4.20-5.40)
[2020-12-11 03:54] LABS: Anion Gap 13 mmol/L (10-20); BUN (Urea Nitrogen) 24 mg/dL (9.8-20.1); Calc. Creatinine Clearance 48 mL/min (70-130); Carbon Dioxide 28 mmol/L (23-31); Chloride 104 mmol/L (98-107); Glucose 119 mg/dL (83-110); Magnesium 2.3 mg/dL (1.6-2.6); Potassium 3.6 mmol/L (3.5-5.1); Sodium 141 mmol/L (136-145)
[2020-12-11] MEDS: Aspirin Chewable 81 MG TAB PO SCH (07:59)
[2020-12-11] MEDS ORDERED: Potassium Chloride 20 MEQ TAB PO SCH (08:00)
[2020-12-11] MEDS: Potassium Chloride 20 MEQ TAB PO SCH (08:01)
[2020-12-11] MEDS: Clopidogrel Bisulfate 75 MG TAB PO SCH (08:02)
[2020-12-11] MEDS ORDERED: Lisinopril 5 MG TAB PO SCH (09:00)
[2020-12-11] MEDS ORDERED: Amlodipine 5 MG TAB PO SCH (09:00)
[2020-12-11] MEDS ORDERED: Amiodarone 200 MG TAB PO SCH (09:00)
[2020-12-11] MEDS: Torsemide 20 MG TAB PO SCH (09:01)
[2020-12-11] MEDS: Amlodipine 5 MG TAB PO SCH (10:15)
[2020-12-11] MEDS: Atorvastatin Calcium 10 MG TAB PO SCH (20:49)
[2020-12-11] MEDS: Amiodarone 200 MG TAB PO SCH (20:49)
[2020-12-12 04:56] LABS: Magnesium 1.9 mg/dL (1.6-2.6); Phosphorus 3.6 mg/dL (2.3-4.7)
[2020-12-12] MEDS: Potassium Chloride 20 MEQ TAB PO SCH (09:07)
[2020-12-12] MEDS: Amlodipine 5 MG TAB PO SCH (09:07)
[2020-12-12] MEDS: Aspirin Chewable 81 MG TAB PO SCH (09:07)
[2020-12-12] MEDS: Clopidogrel Bisulfate 75 MG TAB PO SCH (09:07)
[2020-12-12] MEDS: Amiodarone 200 MG TAB PO SCH ×2 (09:07→20:43)
[2020-12-12] MEDS: Torsemide 20 MG TAB PO SCH (09:07)
[2020-12-12] MEDS ORDERED: Magnesium Sulfate 2 GM in Sodium Chloride 0.9% 100 ML IVPB SCH (09:30)
[2020-12-12] MEDS ORDERED: Magnesium 2 GM/50 ML 2 GM in Premix Bag 1 BAG IVPB SCH (09:30)
[2020-12-12] MEDS: Atorvastatin Calcium 10 MG TAB PO SCH (20:43)
[2020-12-13 04:45] LABS: #Eosinphils 0.5 thou/uL (0.0-0.7); #Lymphocytes 2.1 thou/uL (1.20-3.40); #Monocytes 1.4 thou/uL (0.11-0.59); #Neutrophils 8.3 thou/uL (1.40-6.50); %Basophils 0.4 % (0.0-1.0); %Eosinophils 4.3 % (0.0-10.0); %Lymphocytes 17.2 % (21.0-51.0); %Monocytes 11.1 % (0.0-10.0); Hemoglobin 12.3 g/dL (12.0-16.0); Mean Corpuscular HGB CONC 32.4 g/dL (32.0-36.0); Mean Corpuscular Hemoglobin 31.6 pg (27.0-31.0); Mean Corpuscular Volume 97.5 fL (78.0-98.0); Mean Platelet Volume 7.4 fL (7.4-10.4); Platelet Count 258 thou/uL (130-400); RBC Distribution Width 12.6 % (11.5-14.5); White Blood Cell (WBC) Count 12.4 thou/uL (4.8-10.8)
[2020-12-13 05:07] LABS: Anion Gap 14 mmol/L (10-20); BUN (Urea Nitrogen) 30 mg/dL (9.8-20.1); Calc. Creatinine Clearance 38 mL/min (70-130); Calcium 8.7 mg/dL (7.8-10.44); Carbon Dioxide 26 mmol/L (23-31); Chloride 104 mmol/L (98-107); Glucose 106 mg/dL (83-110); Magnesium 2.2 mg/dL (1.6-2.6); Potassium 3.5 mmol/L (3.5-5.1); Sodium 140 mmol/L (136-145)
[2020-12-13] MEDS: Aspirin Chewable 81 MG TAB PO SCH (08:22)
[2020-12-13] MEDS: Potassium Chloride 20 MEQ TAB PO SCH (09:35)
[2020-12-13] MEDS: Torsemide 20 MG TAB PO SCH (09:35)
[2020-12-13] MEDS: Amlodipine 5 MG TAB PO SCH (09:35)
[2020-12-13] MEDS: Amiodarone 200 MG TAB PO SCH (09:35)
[2020-12-13] MEDS ORDERED: Heparin 10,000 UNITS/ 10 ML VIAL ONE (11:04)
[2020-12-13] MEDS ORDERED: Lidocaine 1% (PF) 30 ML VIAL ONE (11:05)
[2020-12-13] MEDS ORDERED: Gentamicin 80 MG/2 ML VIAL ONE (11:12)
[2020-12-13] MEDS ORDERED: CEFAZOLIN 1 GM VIAL ONE (11:12)
[2020-12-13] MEDS ORDERED: ePHEDrine 50 MG/ML VIAL ONE (12:02)
[2020-12-13] MEDS ORDERED: PROPOFOL 200 MG/20 ML VIAL ONE (12:02)
[2020-12-13] MEDS ORDERED: Lidocaine 1% PF 5 ML VIAL ONE (12:02)
[2020-12-13] MEDS ORDERED: DOPamine 400 MG/D5W 250 ML 250 ML ONE (13:51)
[2020-12-13] MEDS ORDERED: Acetaminophen/Codeine 30-300mg Tablet PO PRN ×2 (16:15)
[2020-12-13] MEDS: Clopidogrel Bisulfate 75 MG TAB PO SCH (16:42)
[2020-12-13] MEDS: Cephalexin 250 MG CAP PO SCH (21:49)
[2020-12-13] MEDS: Atorvastatin Calcium 10 MG TAB PO SCH (21:49)
[2020-12-13] MEDS: Acetaminophen 325 MG TAB PO PRN (22:54)
[2020-12-14 04:29] LABS: #Eosinphils 0.2 thou/uL (0.0-0.7); #Lymphocytes 1.7 thou/uL (1.20-3.40); #Monocytes 1.6 thou/uL (0.11-0.59); #Neutrophils 11.2 thou/uL (1.40-6.50); %Basophils 0.2 % (0.0-1.0); %Eosinophils 1.3 % (0.0-10.0); %Lymphocytes 11.3 % (21.0-51.0); %Neutrophils 76.3 % (42.0-75.0); Hemoglobin 13.5 g/dL (12.0-16.0); Mean Corpuscular HGB CONC 31.8 g/dL (32.0-36.0); Mean Corpuscular Hemoglobin 31.4 pg (27.0-31.0); Mean Corpuscular Volume 98.7 fL (78.0-98.0); Mean Platelet Volume 7.2 fL (7.4-10.4); Platelet Count 267 thou/uL (130-400); RBC Distribution Width 12.6 % (11.5-14.5); White Blood Cell (WBC) Count 14.7 thou/uL (4.8-10.8)
[2020-12-14 04:54] LABS: ALT (SGPT) 30 U/L (8-55); AST (SGOT) 35 U/L (5-34); Albumin 3.3 g/dL (3.4-4.8); Alkaline Phosphatase 91 U/L (40-110); Anion Gap 14 mmol/L (10-20); BUN (Urea Nitrogen) 30 mg/dL (9.8-20.1); Bilirubin, Total 0.6 mg/dL (0.2-1.2); Calc. Creatinine Clearance 33 mL/min (70-130); Calcium 9.4 mg/dL (7.8-10.44); Carbon Dioxide 30 mmol/L (23-31); Chloride 100 mmol/L (98-107); Globulin 3.9 g/dL (2.4-3.5); Glucose 109 mg/dL (83-110); Magnesium 2.2 mg/dL (1.6-2.6); Potassium 3.7 mmol/L (3.5-5.1); Protein, Total 7.2 g/dL (5.8-8.1); Sodium 140 mmol/L (136-145)
[2020-12-14] MEDS: Amlodipine 5 MG TAB PO SCH (08:13)
[2020-12-14] MEDS: Potassium Chloride 20 MEQ TAB PO SCH (08:13)
[2020-12-14] MEDS: Clopidogrel Bisulfate 75 MG TAB PO SCH (08:14)
[2020-12-14] MEDS: Aspirin Chewable 81 MG TAB PO SCH (08:14)
[2020-12-14] MEDS: Cephalexin 250 MG CAP PO SCH ×3 (08:14→21:14)
[2020-12-14] MEDS: Torsemide 20 MG TAB PO SCH (08:15)
[2020-12-14] MEDS ORDERED: Amiodarone 200 MG TAB PO SCH (09:30)
[2020-12-14 10:43] LABS: Bilirubin Negative (Negative); Blood, Urine Negative (Negative); Clarity Clear (Clear); Glucose, Urine (Dipstick) Normal (Negative); Ketone, Urine Negative (Negative); Leukocyte 500 Leu/uL (Negative); Nitrite Negative (Negative); Protein, Urine (Dipstick) 10 mg/dL (Neg-Trace); RBC/HPF 0-3 HPF (0-3); Specific Gravity, Urine 1.013 (1.002-1.036); Squamous Epithelial 0-3 HPF (0-3); Urobilinogen Normal mg/dL (Less than 2)
[2020-12-14 10:46] LABS: Bacteria/HPF 2+ HPF (None Seen)
[2020-12-14 14:46] LABS: Anion Gap 14 mmol/L (10-20); BUN (Urea Nitrogen) 29 mg/dL (9.8-20.1); Calc. Creatinine Clearance 37 mL/min (70-130); Calcium 8.9 mg/dL (7.8-10.44); Carbon Dioxide 29 mmol/L (23-31); Chloride 99 mmol/L (98-107); Glucose 123 mg/dL (83-110); Potassium 3.6 mmol/L (3.5-5.1); Sodium 138 mmol/L (136-145)
[2020-12-14] MEDS: cefTRIAXone\\ROCEPHIN 1 GM in Sodium Chloride 0.9% 100 ML IVPB SCH (15:26)
[2020-12-14] MEDS ORDERED: Atorvastatin Calcium 20 MG TAB PO SCH (21:00)
[2020-12-14] MEDS: Atorvastatin Calcium 10 MG TAB PO SCH (21:14)
[2020-12-15 04:45] LABS: #Basophils 0.1 thou/uL (0.0-0.2); #Eosinphils 0.4 thou/uL (0.0-0.7); #Monocytes 1.6 thou/uL (0.11-0.59); #Neutrophils 10.1 thou/uL (1.40-6.50); %Basophils 0.4 % (0.0-1.0); %Eosinophils 2.6 % (0.0-10.0); %Lymphocytes 14.3 % (21.0-51.0); %Monocytes 11.1 % (0.0-10.0); %Neutrophils 71.6 % (42.0-75.0); Mean Corpuscular HGB CONC 32.8 g/dL (32.0-36.0); Mean Corpuscular Hemoglobin 32.2 pg (27.0-31.0); Mean Corpuscular Volume 98.1 fL (78.0-98.0); Mean Platelet Volume 7.5 fL (7.4-10.4); Platelet Count 246 thou/uL (130-400); RBC Distribution Width 12.8 % (11.5-14.5); Red Blood Cell (RBC) Count 4.04 mill/uL (4.20-5.40); White Blood Cell (WBC) Count 14.1 thou/uL (4.8-10.8)
[2020-12-15 05:08] LABS: Bilirubin Negative (Negative); Blood, Urine Negative (Negative); Clarity Clear (Clear); Glucose, Urine (Dipstick) Normal (Negative); Ketone, Urine Negative (Negative); Leukocyte 500 Leu/uL (Negative); Nitrite Negative (Negative); Protein, Urine (Dipstick) Negative (Neg-Trace); RBC/HPF 0-3 HPF (0-3); Specific Gravity, Urine 1.012 (1.002-1.036); Squamous Epithelial 0-3 HPF (0-3); Urobilinogen Normal mg/dL (Less than 2); WBC/HPF 21-50 HPF (0-3)
[2020-12-15 05:12] LABS: Bacteria/HPF 1+ HPF (None Seen)
[2020-12-15 05:13] LABS: ALT (SGPT) 27 U/L (8-55); AST (SGOT) 34 U/L (5-34); Albumin 3.2 g/dL (3.4-4.8); Alkaline Phosphatase 86 U/L (40-110); Anion Gap 13 mmol/L (10-20); BUN (Urea Nitrogen) 27 mg/dL (9.8-20.1); Bilirubin, Total 0.5 mg/dL (0.2-1.2); Calc. Creatinine Clearance 38 mL/min (70-130); Calcium 8.9 mg/dL (7.8-10.44); Carbon Dioxide 27 mmol/L (23-31); Chloride 101 mmol/L (98-107); Globulin 3.8 g/dL (2.4-3.5); Glucose 118 mg/dL (83-110); Potassium 3.6 mmol/L (3.5-5.1); Sodium 137 mmol/L (136-145)
[2020-12-15 05:13] LABS: Urine Culture Reflex Yes Yes
[2020-12-15] MEDS: Clopidogrel Bisulfate 75 MG TAB PO SCH (09:46)
[2020-12-15] MEDS: Amlodipine 5 MG TAB PO SCH (09:46)
[2020-12-15] MEDS: Potassium Chloride 20 MEQ TAB PO SCH (09:46)
[2020-12-15] MEDS: Aspirin Chewable 81 MG TAB PO SCH (09:47)
[2020-12-15] MEDS: Cephalexin 250 MG CAP PO SCH ×3 (09:47→20:37)
[2020-12-15] MEDS: Amiodarone 200 MG TAB PO SCH (09:48)
[2020-12-15] MEDS: cefTRIAXone\\ROCEPHIN 1 GM in Sodium Chloride 0.9% 100 ML IVPB SCH (15:10)
[2020-12-15] MEDS: Atorvastatin Calcium 10 MG TAB PO SCH (20:37)
[2020-12-16 04:32] LABS: #Basophils 0.1 thou/uL (0.0-0.2); #Eosinphils 0.3 thou/uL (0.0-0.7); #Lymphocytes 2.1 thou/uL (1.20-3.40); #Monocytes 1.5 thou/uL (0.11-0.59); #Neutrophils 9.7 thou/uL (1.40-6.50); %Basophils 0.5 % (0.0-1.0); %Eosinophils 2.5 % (0.0-10.0); %Lymphocytes 15.4 % (21.0-51.0); %Monocytes 10.9 % (0.0-10.0); %Neutrophils 70.7 % (42.0-75.0); Hemoglobin 12.9 g/dL (12.0-16.0); Mean Corpuscular HGB CONC 32.6 g/dL (32.0-36.0); Mean Corpuscular Volume 98.1 fL (78.0-98.0); Mean Platelet Volume 7.5 fL (7.4-10.4); Platelet Count 240 thou/uL (130-400); RBC Distribution Width 12.6 % (11.5-14.5); Red Blood Cell (RBC) Count 4.03 mill/uL (4.20-5.40); White Blood Cell (WBC) Count 13.7 thou/uL (4.8-10.8)
[2020-12-16 04:57] LABS: Anion Gap 13 mmol/L (10-20); BUN (Urea Nitrogen) 22 mg/dL (9.8-20.1); Calc. Creatinine Clearance 49 mL/min (70-130); Carbon Dioxide 25 mmol/L (23-31); Chloride 102 mmol/L (98-107); Glucose 103 mg/dL (83-110); Potassium 3.9 mmol/L (3.5-5.1); Sodium 136 mmol/L (136-145)
[2020-12-16] MEDS: Potassium Chloride 20 MEQ TAB PO SCH (08:08)
[2020-12-16] MEDS: Clopidogrel Bisulfate 75 MG TAB PO SCH (08:09)
[2020-12-16] MEDS: Cephalexin 250 MG CAP PO SCH ×2 (08:09→15:47)
[2020-12-16] MEDS: Amiodarone 200 MG TAB PO SCH (08:09)
[2020-12-16] MEDS: Aspirin Chewable 81 MG TAB PO SCH (08:09)
[2020-12-16] MEDS: Amlodipine 5 MG TAB PO SCH (08:09)
[2020-12-16] MEDS: cefTRIAXone\\ROCEPHIN 1 GM in Sodium Chloride 0.9% 100 ML IVPB SCH (15:47)
[2020-12-16 19:11] VITALS: BP 142/66; TEMP 98
[2020-12-18] MEDS ORDERED: Apixaban 2.5 MG TAB PO SCH (09:00)
== END 2020-12-16 19:51 | DRG 242 ==
LOC: ERS 13:56 → ERHOLD 16:46 → 2SW 12-05 12:14 → OBSVTOIN 12-06 10:22 → 2NO 12-08 22:36 → CCU 12-10 11:57 → 2NO 12-11 10:05
PROVIDERS: ADMIT Internal Medicine; ATTEND Internal Medicine
PROC: 3E033XZ Introduction of Vasopressor into Peripheral Vein, Percutaneous Approach (ICD-10-PCS; principal; 2020-12-08)
PROC: 027034Z Dilation of Coronary Artery, One Artery with Drug-eluting Intraluminal Device, Percutaneous Approach (ICD-10-PCS; 2020-12-08)
PROC: 4A023N7 Measurement of Cardiac Sampling and Pressure, Left Heart, Percutaneous Approach (ICD-10-PCS; 2020-12-08)
PROC: B2111ZZ Fluoroscopy of Multiple Coronary Arteries using Low Osmolar Contrast (ICD-10-PCS; 2020-12-08)
PROC: B2151ZZ Fluoroscopy of Left Heart using Low Osmolar Contrast (ICD-10-PCS; 2020-12-08)
PROC: 4A033BC Measurement of Arterial Pressure, Coronary, Percutaneous Approach (ICD-10-PCS; 2020-12-08)
PROC: 0JH606Z Insertion of Pacemaker, Dual Chamber into Chest Subcutaneous Tissue and Fascia, Open Approach (ICD-10-PCS; 2020-12-13)
PROC: 02H63JZ Insertion of Pacemaker Lead into Right Atrium, Percutaneous Approach (ICD-10-PCS; 2020-12-13)
PROC: 02583ZZ Destruction of Conduction Mechanism, Percutaneous Approach (ICD-10-PCS; 2020-12-13)
PROC: 02HK3JZ Insertion of Pacemaker Lead into Right Ventricle, Percutaneous Approach (ICD-10-PCS; 2020-12-13)
PROC: 02HL3JZ Insertion of Pacemaker Lead into Left Ventricle, Percutaneous Approach (ICD-10-PCS; 2020-12-13)
PROC: 02K83ZZ Map Conduction Mechanism, Percutaneous Approach (ICD-10-PCS; 2020-12-13)
DX: I48.0 Paroxysmal atrial fibrillation (principal); I21.4 Non-ST elevation (NSTEMI) myocardial infarction; J96.01 Acute respiratory failure with hypoxia; Z20.822 Contact with and (suspected) exposure to COVID-19; I50.33 Acute on chronic diastolic (congestive) heart failure; N17.9 Acute kidney failure, unspecified; I13.0 Hypertensive heart and chronic kidney disease with heart failure and stage 1 through stage 4 chronic kidney disease, or unspecified chronic kidney disease; E87.1 Hypo-osmolality and hyponatremia; N39.0 Urinary tract infection, site not specified; N18.30 Chronic kidney disease, stage 3 unspecified; I34.0 Nonrheumatic mitral (valve) insufficiency; K21.9 Gastro-esophageal reflux disease without esophagitis; I49.5 Sick sinus syndrome; I27.20 Pulmonary hypertension, unspecified; I25.5 Ischemic cardiomyopathy; I47.2 Ventricular tachycardia; I25.10 Atherosclerotic heart disease of native coronary artery without angina pectoris; E87.6 Hypokalemia; I95.9 Hypotension, unspecified; I47.1 Supraventricular tachycardia; I44.2 Atrioventricular block, complete; E78.5 Hyperlipidemia, unspecified; R47.81 Slurred speech; Z88.1 Allergy status to other antibiotic agents; Z88.8 Allergy status to other drugs, medicaments and biological substances; Z79.01 Long term (current) use of anticoagulants; Z79.899 Other long term (current) drug therapy; Z90.49 Acquired absence of other specified parts of digestive tract
CPT/HCPCS: 33208; 33225; 36415; 36416; 70450; 71045; 76942; 80048; 80053; 80061; 80151; 81001; 82553; 83605; 83690; 83735; 83880; 84100; 84484; 85025; 85347; 87086; 87635; 92928; 93005; 93010; 93458; 93613; 93623; 93650; 95712; 95819; 95957; 96374; 96375; 96376; 97139; C1732; C1874; C1882; C1898; C9600; G0378; J0282; J0690; J0696; J1160; J1265; J1580; J1644; J1650; J1940; J2001; J2405; J2550; J2704; J3475; J3480; J3490; J7070; Q9967; U0003; U0005

== ENCOUNTER 2021-04-06 00:57 | Emergency (ER) | payer MEDICARE ==
[2021-04-06 02:04] LABS: #Eosinphils 0.1 thou/uL (0.0-0.7); #Lymphocytes 1.1 thou/uL (1.20-3.40); #Monocytes 1.4 thou/uL (0.11-0.59); #Neutrophils 14.2 thou/uL (1.40-6.50); %Basophils 0.3 % (0.0-1.0); %Eosinophils 0.4 % (0.0-10.0); %Lymphocytes 6.8 % (21.0-51.0); %Monocytes 8.5 % (0.0-10.0); Hemoglobin 12.8 g/dL (12.0-16.0); Mean Corpuscular Volume 96.9 fL (78.0-98.0); Mean Platelet Volume 7.4 fL (7.4-10.4); Platelet Count 213 thou/uL (130-400); RBC Distribution Width 12.3 % (11.5-14.5); Red Blood Cell (RBC) Count 3.99 mill/uL (4.20-5.40); White Blood Cell (WBC) Count 16.9 thou/uL (4.8-10.8)
[2021-04-06 02:23] LABS: ALT (SGPT) 18 U/L (8-55); AST (SGOT) 22 U/L (5-34); Albumin 3.5 g/dL (3.4-4.8); Anion Gap 14 mmol/L (10-20); BUN (Urea Nitrogen) 21 mg/dL (9.8-20.1); Bilirubin, Total 0.7 mg/dL (0.2-1.2); CK (CPK) 38 U/L (29-168); Calc. Creatinine Clearance 0 mL/min (70-130); Calcium 9.1 mg/dL (7.8-10.44); Carbon Dioxide 28 mmol/L (23-31); Chloride 99 mmol/L (98-107); Globulin 3.8 g/dL (2.4-3.5); Glucose 158 mg/dL (83-110); Potassium 3.7 mmol/L (3.5-5.1); Protein, Total 7.3 g/dL (5.8-8.1); Sodium 137 mmol/L (136-145)
[2021-04-06 02:53] LABS: Bilirubin Negative (Negative); Blood, Urine Negative (Negative); Clarity Clear (Clear); Glucose, Urine (Dipstick) Normal (Negative); Ketone, Urine Negative (Negative); Leukocyte 25 Leu/uL (Negative); Nitrite Negative (Negative); Protein, Urine (Dipstick) 50 mg/dL (Neg-Trace); RBC/HPF 0-3 HPF (0-3); Specific Gravity, Urine 1.008 (1.002-1.036); Squamous Epithelial None Seen HPF (0-3); Urobilinogen Normal mg/dL (Less than 2); WBC/HPF 0-3 HPF (0-3)
[2021-04-06 02:54] LABS: Bacteria/HPF 4+ HPF (None Seen)
[2021-04-06 03:27] LABS: Alkaline Phosphatase 104 U/L (40-110)
[2021-04-06] MEDS ORDERED: Ondansetron ODT 8 MG TAB ONE (04:10)
== END 2021-04-06 04:20 | disposition home or self-care (01) ==
LOC: ERS 00:57
DX: N39.0 Urinary tract infection, site not specified (principal); R60.0 Localized edema; R06.02 Shortness of breath; I11.0 Hypertensive heart disease with heart failure; I50.9 Heart failure, unspecified; Z79.899 Other long term (current) drug therapy; Z79.01 Long term (current) use of anticoagulants
CPT/HCPCS: 36415; 71045; 80053; 81003; 81015; 82550; 83880; 84484; 85025; 87077; 87086; 87186; 93005; Q0162